=== PATIENT | male | born 1945 | race Caucasian/White ===

== ENCOUNTER 2019-08-01 11:06 | Inpatient (IN) | payer MEDICARE, BC ==
[2019-08-01] MEDS ORDERED: Sodium Chloride 0.9% 1000 ML 1,000 ML IV STA (12:39)
--- NOTE | 2019-08-01 12:44 | PCM.HP.ADD ---
Addendum to History & Physical - History & Physical Addendum Addendum to History & Physical: This certifies that the History & Physical in the electronic chart reflects the current health status of the patient. If there are changes in the H&P these changes/exceptions are listed as follows.
[2019-08-01 13:03] LABS: Hematocrit 36.8 % (42-50); Hemoglobin 12.1 gm/dl (12.5-18.0); Mean Cell Volume 90.2 fl (78-100); Mean Corpuscular Hgb Concent. 32.9 g/dl (32-36); Mean Platelet Volume 9.6 fl (6-9.5); Platelet Count 314 K/mm3 (150-450); Red Blood Count 4.08 M/mm3 (4.1-5.6); White Blood Count 21.6 K/mm3 (4.0-10.5)
[2019-08-01 13:05] LABS: Mean Corpuscular Hemoglobin 29.6 pg (26-32)
[2019-08-01 13:51] LABS: ANION GAP 19.8 MEQ/L (5-15); BILIRUBIN,TOTAL 0.6 mg/dL (0.2-1.3); Calcium 9.8 mg/dL (8.4-10.2); Creatinine 1 2.63 mg/dL (0.66-1.25); Potassium 3.6 mmol/L (3.5-5.1); Total Protein 7.1 g/dL (6.3-8.2)
[2019-08-01] MEDS: Sodium Chloride 0.9% 1000 ML 1,000 ML IV SCH (14:51)
[2019-08-01 15:01] LABS: BAND 2 % (0.0-2.0); Basophil 1 % (0.0-1.0); Eosinophil 3 % (0.00-3.0); Lymphocytes 11 % (24-44); Monocyte 5 % (0.0-12.0); Neutrophils 78 % (36.-66.); Platelet Estimate NORMAL (NORMAL); Total Cells Counted 100
--- NOTE | 2019-08-01 15:17 | XRAY ---
Indication: Acute mental status change. History of bladder carcinoma. Possible metastasis. Sagittal, coronal, and axial MRI brain was performed without contrast using T1, T2, FLAIR, diffusion, and ADC sequences. Comparison: None MRI was ordered with contrast but performed without contrast due to patient's poor renal function. GFR is 25.6. There is age-appropriate global atrophy. Moderate bilateral periventricular and brainstem T2 signal favors degenerative micro-ischemia. No acute intracranial hemorrhage, abnormal extra-axial fluid collection, or mass effect. Diffusion images are negative for restricted signal. Fourth ventricle is midline without hydrocephalus. 7/8 cranial nerve complex bilaterally symmetric. Normal flow void signal within the major intracerebral circulation. Normal appearing craniocervical junction and sella turcica. Minimal mucosal thickening of both ethmoid sinuses. Impression: 1. Normal aging brain including atrophy and cerebral/brainstem degenerative micro-ischemia. 2. No acute intracranial abnormalities or evidence for evolving large vessel territorial stroke. 3. Minimal paranasal sinus disease.
--- NOTE | 2019-08-01 15:26 | XRAY ---
Indication: Confusion. History of bladder carcinoma. Comparison: October 06, 2006. PA/lateral chest remains hyperinflated with lingula calcified granuloma. No focal infiltrate, consolidation, mass, or effusion. Heart and mediastinal structures within normal limits. Bony thorax intact again with mild osteopenia and degenerative changes. Impression: Stable nonacute hyperinflated chest with chronic features.
[2019-08-01] MEDS: Zithromax 500 MG/ 250 ML NaCl Premix 500 MG/250 ML IVPB IV SCH (16:35)
[2019-08-01] MEDS: Glucophage 500 MG PO SCH (16:38)
[2019-08-01] MEDS: ROCEPHIN 1 Gm-D5w 50 ml Bag** 1 G/50 ML IVPB IV SCH (18:36)
[2019-08-01 19:07] LABS: Appearance CLEAR (CLEAR); Bacteria FEW /HPF (NEGATIVE); Bilirubin NEGATIVE (NEGATIVE); Blood NEGATIVE Ery/ul (0-5); Glucose NEGATIVE (NEGATIVE); Hyaline Casts 0-2 /LPF (0-2); Ketones NEGATIVE (NEGATIVE); Leukocyte Esterase SMALL (NEGATIVE); Mucus SLIGHT /HPF (NEGATIVE); Nitrite NEGATIVE (NEGATIVE); Protein,Urine Dip 100 (Negative); Specific Gravity 1.015 (1.005-1.025); Urobilinogen 2 mg/dL (0-1); WBC 51-100 /HPF (0-5)
[2019-08-01] MEDS: Pepcid 20 MG PO SCH (22:00)
[2019-08-01] MEDS: NORCO 7.5/325 MG TAB PO SCH (22:00)
[2019-08-01] MEDS: REQUIP 2MG TAB PO SCH (22:00)
[2019-08-01] MEDS: COREG 12.5 MG PO SCH (22:01)
[2019-08-01] MEDS: ECOTRIN 81 MG PO SCH (22:01)
[2019-08-02] MEDS: Sodium Chloride 0.9% 1000 ML 1,000 ML IV SCH ×2 (05:44→15:44)
[2019-08-02] MEDS: Glucophage 500 MG PO SCH ×2 (07:57→17:34)
--- NOTE | 2019-08-02 09:15 | PCM.NOTE ---
Date and Time: 08/02/19912 Subjective Assessment: doing ok - Review of Systems Constitutional: No Fever, No Chills Eyes: No Symptoms Ears, Nose, & Throat: No Symptoms Respiratory: No Cough, No Short Of Breath Cardiac: No Chest Pain, No Edema, No Syncope Abdominal/Gastrointestinal: No Abdominal Pain, No Nausea, No Vomiting, No Diarrhea Genitourinary Symptoms: No Dysuria Musculoskeletal: No Back Pain, No Neck Pain Skin: No Rash Neurological: No Dizziness, No Focal Weakness, No Sensory Changes Psychological: No Symptoms Endocrine: No Symptoms Hematologic/Lymphatic: No Symptoms Immunological/Allergic: No Symptoms Objective Exam General Appearance: no apparent distress, alert Neurologic Exam: alert, oriented x 3, cooperative, normal mood/affect, nml cerebellar function, sensation nml, No motor deficits Skin Exam: normal color, warm, dry Eye Exam: PERRL, EOMI, eyes nml inspection Ears, Nose, Throat Exam: normal ENT inspection, pharynx normal, moist mucous membranes Neck Exam: normal inspection, non-tender, supple, full range of motion Respiratory Exam: normal breath sounds, lungs clear, No respiratory distress Cardiovascular Exam: regular rate/rhythm, normal heart sounds Gastrointestinal/Abdomen Exam: soft, No tenderness, No mass Extremity Exam: normal inspection, normal range of motion Back Exam: normal inspection, normal range of motion, No CVA tenderness, No vertebral tenderness Male Genitalia Exam: deferred Rectal Exam: deferred OBJECTIVE DATA Vital Signs: Vital Signs - 24 hr Temp Pulse Resp BP Pulse Ox 08/02/19 08:00 99.7 F 75 20 174/80 94 L 08/02/19 02:52 98.4 F 75 18 166/78 94 L 08/02/19 00:00 98.2 F 78 16 139/67 92 L 08/01/19 21:00 99.4 F 81 18 162/74 94 L 08/01/19 18:59 98 08/01/19 17:44 98.2 F 80 20 124/80 98 08/01/19 13:54 96 08/01/19 13:04 97.8 F 68 20 132/63 96 08/01/19 13:02 97.8 F 68 20 132/63 95 Pain Assessment - Last Documented Pain Intensity 0 Pain Scale Used FLACC Intake and Output: Intake & Output 07/30/19 07/31/19 08/01/1919 11:59 11:59 11:59 11:59 Intake Total 2703 Output Total 700 Balance 2002 Weight 73.1 kg Lab Results: Accuchecks Date 08/01/19 Date 08/01/19 Time 21:00 Time 16:30 Accucheck Value: 96 Accucheck Value: 177 Lab Results-Last 24 Hours 08/01/19 08/01/19 08/01/19 Range/Units 12:39 12:39 13:05 WBC 21.6 H (4.0-10.5) K/mm3 RBC 4.08 L (4.1-5.6) M/mm3 Hgb 12.1 L (12.5-18.0) gm/dl Hct 36.8 L (42-50) % MCV 90.2 (78-100) fl MCH 29.6 (26-32) pg MCHC 32.9 (32-36) g/dl RDW 15.0 H (11.5-14.0) % Plt Count 314 (150-450) K/mm3 MPV 9.6 H (6-9.5) fl Segmented Neutrophils 78 H (36.-66.) % Band Neutrophils 2 (0.0-2.0) % Lymphocytes (Manual) 11 L (24-44) % Monocytes (Manual) 5 (0.0-12.0) % Eosinophils (Manual) 3 (0.00-3.0) % Basophils (Manual) 1 (0.0-1.0) % Platelet Estimate NORMAL (NORMAL) RBC Morphology NORMAL Sodium 139 (137-145) mmol/L Potassium 3.6 (3.5-5.1) mmol/L Chloride 99 (98-107) mmol/L Carbon Dioxide 24 (22-30) mmol/L Anion Gap 19.8 H (5-15) MEQ/L BUN 39 H (9-20) mg/dL Creatinine 2.63 H (0.66-1.25) mg/dL Estimated GFR 25.6 ML/MIN Glucose 175 H (74-106) mg/dL Hemoglobin A1c 5.99 (4.5-6.0) % Calcium 9.8 (8.4-10.2) mg/dL Total Bilirubin 0.60 (0.2-1.3) mg/dL AST 19 (17-59) U/L ALT 17 (0-50) U/L Alkaline Phosphatase 45 (38-126) U/L NT-Pro-B Natriuret Pep 649 (0-900) pg/mL Serum Total Protein 7.1 (6.3-8.2) g/dL Albumin 4.0 (3.5-5.0) g/dL Urine Color (YELLOW) Urine Appearance (CLEAR) Urine pH (5-6) Ur Specific [place] (1.005-1.025) Urine Protein (Negative) Urine Ketones (NEGATIVE) Urine Blood (0-5) Jamin/ul Urine Nitrite (NEGATIVE) Urine Bilirubin (NEGATIVE) Urine Urobilinogen (0-1) mg/dL Ur Leukocyte Esterase (NEGATIVE) Urine WBC (Auto) (0-5) /HPF Urine RBC (Auto) (0-2) /HPF U Hyaline Cast (Auto) (0-2) /LPF U Epithel Cells (Auto) (FEW) /HPF Urine Bacteria (Auto) (NEGATIVE) /HPF Urine Mucus (Auto) (NEGATIVE) /HPF Urine Culture Reflexed (NO) Urine Glucose (NEGATIVE) mg/dL 08/01/19 Range/Units 18:40 WBC (4.0-10.5) K/mm3 RBC (4.1-5.6) M/mm3 Hgb (12.5-18.0) gm/dl Hct (42-50) % MCV (78-100) fl MCH (26-32) pg MCHC (32-36) g/dl RDW (11.5-14.0) % Plt Count (150-450) K/mm3 MPV (6-9.5) fl Segmented Neutrophils (36.-66.) % Band Neutrophils (0.0-2.0) % Lymphocytes (Manual) (24-44) % Monocytes (Manual) (0.0-12.0) % Eosinophils (Manual) (0.00-3.0) % Basophils (Manual) (0.0-1.0) % Platelet Estimate (NORMAL) RBC Morphology Sodium (137-145) mmol/L Potassium (3.5-5.1) mmol/L Chloride (98-107) mmol/L Carbon Dioxide (22-30) mmol/L Anion Gap (5-15) MEQ/L BUN (9-20) mg/dL Creatinine (0.66-1.25) mg/dL Estimated GFR ML/MIN Glucose (74-106) mg/dL Hemoglobin A1c (4.5-6.0) % Calcium (8.4-10.2) mg/dL Total Bilirubin (0.2-1.3) mg/dL AST (17-59) U/L ALT (0-50) U/L Alkaline Phosphatase (38-126) U/L NT-Pro-B Natriuret Pep (0-900) pg/mL Serum Total Protein (6.3-8.2) g/dL Albumin (3.5-5.0) g/dL Urine Color YELLOW (YELLOW) Urine Appearance CLEAR (CLEAR) Urine pH 6.0 (5-6) Ur Specific [place] 1.015 (1.005-1.025) Urine Protein 100 (Negative) Urine Ketones NEGATIVE (NEGATIVE) Urine Blood NEGATIVE (0-5) Jamin/ul Urine Nitrite NEGATIVE (NEGATIVE) Urine Bilirubin NEGATIVE (NEGATIVE) Urine Urobilinogen 2 (0-1) mg/dL Ur Leukocyte Esterase SMALL (NEGATIVE) Urine WBC (Auto) 51-100 (0-5) /HPF Urine RBC (Auto) NONE (0-2) /HPF U Hyaline Cast (Auto) 0-2 (0-2) /LPF U Epithel Cells (Auto) NONE (FEW) /HPF Urine Bacteria (Auto) FEW (NEGATIVE) /HPF Urine Mucus (Auto) SLIGHT (NEGATIVE) /HPF Urine Culture Reflexed ORDERED SEPARATELY (NO) Urine Glucose NEGATIVE (NEGATIVE) mg/dL Radiology Exams: Radiology Procedures Category Date Time Status CHEST 2 VIEWS (PA AND LAT) Stat Exams 08/01/19 14:30 Completed MRI BRAIN W/O CONTRAST [MRI] Routine Exams 08/01/19 12:39 Completed Multi-Disciplinary Progress Notes: Multi-Disciplinary Progress Notes 08/01/19 15:14 Pharmacy Note by [employer],PHARM Patient is currently taking metformin 1000 mg BID. Lexicomp suggest that in patients with CrCl less than 30 to be discontinued from this medication. Patients current CrCl is 26 mL/min. Miguel Miller Nipping Machine Operator Initialized on 08/01/19 15:14 - END OF NOTE Assessment/Plan (1) Pyelonephritis Current Visit: Yes Status: Acute Assessment & Plan: Last Vital Signs Temp 99.7 F 08/02/19 08:00 Pulse 75 08/02/19 08:00 Resp 20 08/02/19 08:00 BP 174/80 08/02/19 08:00 Pulse Ox 94 L 08/02/19 08:00 Allergies No Known Drug Allergies Allergy (Unverified 08/01/19 13:27) Active Medications Hydrocodone Bitart/Acetaminophen ([place] 7.5/325 Mg Tab) 1 tab PO BID FLAVIO Stop: 08/06/19 21:59 Last Admin: 08/01/19 22:00 Dose: 1 tab Amlodipine Besylate (Norvasc 5 Mg) 10 mg PO DAILY FLAVIO Stop: 09/01/19 09:59 Aspirin (Ecotrin 81 Mg) 81 mg PO BID FLAVIO Stop: 08/31/19 21:59 Last Admin: 08/01/19 22:01 Dose: 81 mg Bupropion HCl (Wellbutrin Xl 150 Mg) 300 mg PO DAILY FLAVIO Stop: 09/01/19 09:59 Carvedilol (Coreg 12.5 Mg) 25 mg PO BID FLAVIO Stop: 08/31/19 21:59 Last Admin: 08/01/19 22:01 Dose: 25 mg Cholecalciferol (Vitamin D) 1,000 unit PO DAILY FLAVIO Stop: 09/01/19 09:59 Clopidogrel Bisulfate (Plavix 75 Mg Tablet) 75 mg PO DAILY FLAVIO Stop: 09/01/19 09:59 Famotidine (Pepcid 20 Mg) 20 mg PO BID FLAVIO Stop: 08/31/19 21:59 Last Admin: 08/01/19 22:00 Dose: 20 mg Fluoxetine HCl (Prozac 20 Mg) 20 mg PO DAILY FLAVIO Stop: 09/01/19 09:59 Sodium Chloride (Sodium Chloride 0.9% 1000 Ml) 1,000 mls @ 100 mls/hr IV .Q10H FLAVIO Stop: 08/31/19 12:44 Last Admin: 08/02/19 05:44 Dose: 100 mls/hr Ceftriaxone Sodium/Dextrose (Rocephin 1 Gm-D5w 50 Ml Bag) 1 g in 50 mls @ 100 mls/hr IV Q24H FLAVIO Stop: 08/31/19 17:59 Last Admin: 08/01/19 18:36 Dose: 100 mls/hr Azithromycin (Zithromax 500 Mg/ 250 Ml Nacl Premix) 500 mg in 250 mls @ 250 mls /hr IV Q24H FLAVIO Stop: 08/31/19 16:29 Last Admin: 08/01/19 16:35 Dose: 250 mls/hr Losartan Potassium (Cozaar 50 Mg) 50 mg PO DAILY FLAVIO Stop: 09/01/19 09:59 Metformin HCl (Glucophage 500 Mg) 1,000 mg PO BIDWM FLAVIO Stop: 08/31/19 16:59 Last Admin: 08/02/19 07:57 Dose: 1,000 mg Chlorthalidone 25mg (Tablet) 1 each PO DAILY FLAVIO Stop: 09/01/19 09:59 Ropinirole HCl (Requip 2mg Tab) 2 mg PO HS FLAVIO Stop: 08/31/19 21:59 Last Admin: 08/01/19 22:00 Dose: 2 mg Simvastatin (Zocor 20mg) 80 mg PO DAILY FLAVIO Stop: 09/01/19 09:59 Sitagliptin Phosphate (Januvia 50 Mg) 50 mg PO DAILY FLAVIO Stop: 09/01/19 09:59 Intake & Output 08/01/19 08/02/19 11:59 11:59 Intake Total 2703 Output Total 700 Balance 2002 Weight 73.1 kg Orders 08/01/19 12:[address] in Observation ROUTINE Oxygen Nasal Cannula 2 lpm 08/01/19 12:40 Up Ad Leonila TOLERATED 08/01/19 12:45 NaCl 0.9% 1000 ml [Sodium Chloride 0.9% 1000 ML] 1,000 ml IV 100 mls/hr 08/01/19 13:00 BLOOD CULTURE Stat 08/01/19 13:03 Pulse Oximetry .spot check 08/01/19 13:36 Cover Mat Machine Operator/Discharge Plan Nutritional Admission Screen 08/01/19 16:30 Azithromycin 500 mg/250 ml [Zithromax 500 MG/ 250 ML NaCl Premix] 500 mg in 250 ml IV Q24H 08/01/19 17:00 Metformin HCl 500 mg [Glucophage 500 MG] 1,000 mg PO BIDWM 08/01/19 18:00 Ceftriaxone 1 GM/50 ML PREMIX* [ROCEPHIN 1 Gm-D5w 50 ml Bag] 1 g in 50 ml IV Q24H 08/01/19 18:40 CULTURE,URINE Stat 08/01/19 22:00 Aspirin EC 81 mg [Ecotrin 81 mg] 81 mg PO BID Carvedilol 12.5 mg [Coreg 12.5 mg] 25 mg PO BID Famotidine 20 mg [Pepcid 20 MG] 20 mg PO BID Hydrocodone /APAP 7.5/325 mg [[place] 7.5/325 mg Tab] 1 tab PO BID Ropinirole 2Mg [Requip 2Mg Tab] 2 mg PO HS 08/01/19 Dinner 1800 Calorie ADA 08/02/19 10:00 Amlodipine Besylate 5 mg [Norvasc 5 mg] 10 mg PO DAILY Bupropion HCl Xl 150 mg [Wellbutrin XL 150 MG] 300 mg PO DAILY Cholecalciferol (Vitamin D3) [Vitamin D] 1,000 unit PO DAILY Clopidogrel Bisulfate 75 mg [PLAVIX 75 MG Tablet] 75 mg PO DAILY Fluoxetine HCl 20 mg [Prozac 20 MG] 20 mg PO DAILY Losartan Potassium 50 mg [Cozaar 50 MG] 50 mg PO DAILY Non-Formulary Drug [Non-Formulary Item] 1 each PO DAILY Simvastatin 20Mg [Zocor 20Mg] 80 mg PO DAILY Sitagliptin Phosphate 50 MG [Januvia 50 MG] 50 mg PO DAILY Lab Tests 08/01/19 08/01/19 08/01/19 12:39 12:39 13:05 WBC 21.6 H RBC 4.08 L Hgb 12.1 L Hct 36.8 L MCV 90.2 MCH 29.6 MCHC 32.9 RDW 15.0 H Plt Count 314 MPV 9.6 H Segmented Neutrophils 78 H Band Neutrophils 2 Lymphocytes (Manual) 11 L Monocytes (Manual) 5 Eosinophils (Manual) 3 Basophils (Manual) 1 Platelet Estimate NORMAL RBC Morphology NORMAL Sodium 139 Potassium 3.6 Chloride 99 Carbon Dioxide 24 Anion Gap 19.8 H BUN 39 H Creatinine 2.63 H Estimated GFR 25.6 Glucose 175 H Hemoglobin A1c 5.99 Calcium 9.8 Total Bilirubin 0.60 AST 19 ALT 17 Alkaline Phosphatase 45 NT-Pro-B Natriuret Pep 649 Serum Total Protein 7.1 Albumin 4.0 Urine Color Urine Appearance Urine pH Ur Specific [place] Urine Protein Urine Ketones Urine Blood Urine Nitrite Urine Bilirubin Urine Urobilinogen Ur Leukocyte Esterase Urine WBC (Auto) Urine RBC (Auto) U Hyaline Cast (Auto) U Epithel Cells (Auto) Urine Bacteria (Auto) Urine Mucus (Auto) Urine Culture Reflexed Urine Glucose 08/01/19 18:40 WBC RBC Hgb Hct MCV MCH MCHC RDW Plt Count MPV Segmented Neutrophils Band Neutrophils Lymphocytes (Manual) Monocytes (Manual) Eosinophils (Manual) Basophils (Manual) Platelet Estimate RBC Morphology Sodium Potassium Chloride Carbon Dioxide Anion Gap BUN Creatinine Estimated GFR Glucose Hemoglobin A1c Calcium Total Bilirubin AST ALT Alkaline Phosphatase NT-Pro-B Natriuret Pep Serum Total Protein Albumin Urine Color YELLOW Urine Appearance CLEAR Urine pH 6.0 Ur Specific [place] 1.015 Urine Protein 100 Urine Ketones NEGATIVE Urine Blood NEGATIVE Urine Nitrite NEGATIVE Urine Bilirubin NEGATIVE Urine Urobilinogen 2 Ur Leukocyte Esterase SMALL Urine WBC (Auto) 51-100 Urine RBC (Auto) NONE U Hyaline Cast (Auto) 0-2 U Epithel Cells (Auto) NONE Urine Bacteria (Auto) FEW Urine Mucus (Auto) SLIGHT Urine Culture Reflexed ORDERED SEPARATELY Urine Glucose NEGATIVE Microbiology 08/01/19 18:40 Clean Catch Midstream Urine Culture - Preliminary NO GROWTH TO DATE Code(s): N12 - TUBULO-INTERSTITIAL NEPHRITIS, NOT SPCF ACUTE OR CHRONIC (2) Bladder cancer Current Visit: Yes Status: Acute
[2019-08-02] MEDS: PLAVIX 75 MG Tablet PO SCH (09:58)
[2019-08-02] MEDS: ZOCOR 20MG PO SCH (09:58)
[2019-08-02] MEDS: NORVASC 5 MG PO SCH (09:59)
[2019-08-02] MEDS: Pepcid 20 MG PO SCH ×2 (09:59→21:28)
[2019-08-02] MEDS: NORCO 7.5/325 MG TAB PO SCH ×2 (09:59→21:28)
[2019-08-02] MEDS: ECOTRIN 81 MG PO SCH ×2 (09:59→21:28)
[2019-08-02] MEDS: COREG 12.5 MG PO SCH ×2 (09:59→21:28)
[2019-08-02] MEDS: Prozac 20 MG PO SCH (10:00)
[2019-08-02] MEDS ORDERED: NON-FORMULARY ITEM (Alogliptin Benzoate [Alogliptin] 12.5 MG) PO SCH (10:00)
[2019-08-02] MEDS ORDERED: NON-FORMULARY ITEM (Losartan Potassium [Cozaar] 50 MG) PO SCH (10:00)
[2019-08-02] MEDS ORDERED: BUPROPION HCL 300 MG PO SCH (10:00)
[2019-08-02] MEDS ORDERED: NON-FORMULARY ITEM (Chlorthalidone [Chlorthalidone] 25 MG) PO SCH (10:00)
[2019-08-02] MEDS: Januvia 50 MG PO SCH (10:00)
[2019-08-02] MEDS ORDERED: NON-FORMULARY ITEM (Atorvastatin Calcium [Atorvastatin Calcium] 80 MG) PO SCH (10:00)
[2019-08-02] MEDS: Cozaar 50 MG PO SCH (10:00)
[2019-08-02] MEDS: NON-FORMULARY ITEM PO SCH (10:00)
[2019-08-02] MEDS: VITAMIN D PO SCH (10:00)
[2019-08-02] MEDS: Wellbutrin XL 150 MG PO SCH (10:01)
--- NOTE | 2019-08-02 10:17 | XRAY ---
Indication: Weakness and dizziness. History of bladder cancer. Multiple contiguous axial images obtained through the abdomen and pelvis without contrast as ordered. Comparison: None Lung bases demonstrates bibasilar atelectasis/scarring. No infiltrate or effusion. Heart is not enlarged. Stomach is distended with food/fluid. Noncontrasted stomach and bowel loops appear nonobstructed. Normal appendix. Mild diffuse scattered colonic fecal debris throughout. Scattered descending and sigmoid diverticulosis. No free fluid/air. Left kidney is atrophic with a few renal cysts, largest 2.5 cm. Calcified splenic granulomas, hysterectomy, and cholecystectomy. Remaining liver, pancreas, spleen, adrenal glands, kidneys, ureters, and bladder appear unremarkable for noncontrast exam. Enlarged prostate gland impresses on the base of the bladder. Mild scattered aortoiliac calcifications without AAA. Osseous structures demonstrates mild/moderate degenerative changes throughout the spine. There is anterior ventral hernia mesh graft at the level of the pelvis. Small fatty bilateral inguinal hernias. Impression: 1. Mild diffuse fecal stasis without obstruction. Colonic diverticulosis without diverticulitis. 2. Atrophic left kidney with cysts, enlarged prostate gland, and small bilateral fatty inguinal hernias. 3. Remaining CT abdomen/pelvis without contrast exam is negative. CT DI 19.30
[2019-08-02 11:12] LABS: Hematocrit 39.7 % (42-50); Hemoglobin 12.8 gm/dl (12.5-18.0); Mean Cell Volume 91.1 fl (78-100); Mean Corpuscular Hemoglobin 29.4 pg (26-32); Mean Corpuscular Hgb Concent. 32.2 g/dl (32-36); Mean Platelet Volume 9.9 fl (6-9.5); Platelet Count 336 K/mm3 (150-450); Red Blood Count 4.36 M/mm3 (4.1-5.6); White Blood Count 18.1 K/mm3 (4.0-10.5)
[2019-08-02 13:10] LABS: ALBUMIN 4.1 g/dL (3.5-5.0); ANION GAP 21.4 MEQ/L (5-15); BILIRUBIN,TOTAL 0.6 mg/dL (0.2-1.3); Calcium 9.7 mg/dL (8.4-10.2); Creatinine 1 2.39 mg/dL (0.66-1.25); Potassium 3.8 mmol/L (3.5-5.1); Total Protein 7.7 g/dL (6.3-8.2)
[2019-08-02 14:46] LABS: BAND 3 % (0.0-2.0); Eosinophil 9 % (0.00-3.0); Lymphocytes 4 % (24-44); Monocyte 5 % (0.0-12.0); Neutrophils 79 % (36.-66.); Total Cells Counted 100
[2019-08-02 14:47] LABS: ANISOCYTOSIS 1+; Platelet Estimate NORMAL (NORMAL); Toxic Granulation 1+
[2019-08-02] MEDS: Zithromax 500 MG/ 250 ML NaCl Premix 500 MG/250 ML IVPB IV SCH (15:44)
[2019-08-02] MEDS: ROCEPHIN 1 Gm-D5w 50 ml Bag** 1 G/50 ML IVPB IV SCH (17:34)
[2019-08-02] MEDS: REQUIP 2MG TAB PO SCH (21:28)
[2019-08-03] MEDS: Sodium Chloride 0.9% 1000 ML 1,000 ML IV SCH ×2 (03:31→13:49)
[2019-08-03 09:25] LABS: Absolute Neutrophil Ct (ANC) 12.04 (1.4-6.9); BASOPHIL % 0.4 % (0.0-0.4); Basophil (Absolute #) 0.06 (0-0.4); Eosinophil % 13.4 % (0.00-5.0); Eosinophil (Absolute #) 2.28 (0-0.5); Hematocrit 37.9 % (42-50); Hemoglobin 12.2 gm/dl (12.5-18.0); Lymphocyte (Absolute #) 1.41 (1.0-4.6); Lymphocytes % 8.3 % (24.0-44.0); Mean Cell Volume 90.5 fl (78-100); Mean Corpuscular Hemoglobin 29.1 pg (26-32); Mean Corpuscular Hgb Concent. 32.2 g/dl (32-36); Mean Platelet Volume 9.2 fl (6-9.5); Monocyte (Absolute #) 1.23 (0.0-1.3); Monocytes % 7.2 % (0.0-12.0); Neutrophil % 70.7 % (36.0-66.0); Platelet Count 336 K/mm3 (150-450); Red Blood Count 4.19 M/mm3 (4.1-5.6); Red Cell Distribution Width 14.8 % (11.5-14.0)
[2019-08-03] MEDS: ZOCOR 20MG PO SCH (09:29)
[2019-08-03] MEDS: COREG 12.5 MG PO SCH ×2 (09:31→21:43)
[2019-08-03] MEDS: Cozaar 50 MG PO SCH (09:32)
[2019-08-03] MEDS: PLAVIX 75 MG Tablet PO SCH (09:32)
[2019-08-03] MEDS: Januvia 50 MG PO SCH (09:32)
[2019-08-03] MEDS: Pepcid 20 MG PO SCH ×2 (09:32→21:42)
[2019-08-03] MEDS: VITAMIN D PO SCH (09:33)
[2019-08-03] MEDS: Prozac 20 MG PO SCH (09:33)
[2019-08-03] MEDS: NON-FORMULARY ITEM PO SCH (09:34)
[2019-08-03] MEDS: ECOTRIN 81 MG PO SCH ×2 (09:34→21:42)
[2019-08-03] MEDS: Wellbutrin XL 150 MG PO SCH (09:34)
[2019-08-03] MEDS: NORCO 7.5/325 MG TAB PO SCH ×2 (09:35→21:42)
[2019-08-03] MEDS: NORVASC 5 MG PO SCH (09:35)
[2019-08-03 09:57] LABS: ALBUMIN 3.7 g/dL (3.5-5.0); ANION GAP 16.6 MEQ/L (5-15); BILIRUBIN,TOTAL 0.4 mg/dL (0.2-1.3); Calcium 9.5 mg/dL (8.4-10.2); Creatinine 1 2.08 mg/dL (0.66-1.25); Potassium 3.7 mmol/L (3.5-5.1)
[2019-08-03 11:48] LABS: Slide Review 1 YES
--- NOTE | 2019-08-03 13:26 | PCM.NOTE ---
Date and Time: 08/03/19 1325 Subjective Assessment: doing ok - Review of Systems Constitutional: No Fever, No Chills Eyes: No Symptoms Ears, Nose, & Throat: No Symptoms Respiratory: No Cough, No Short Of Breath Cardiac: No Chest Pain, No Edema, No Syncope Abdominal/Gastrointestinal: No Abdominal Pain, No Nausea, No Vomiting, No Diarrhea Genitourinary Symptoms: No Dysuria Musculoskeletal: No Back Pain, No Neck Pain Skin: No Rash Neurological: No Dizziness, No Focal Weakness, No Sensory Changes Psychological: No Symptoms Endocrine: No Symptoms Hematologic/Lymphatic: No Symptoms Immunological/Allergic: No Symptoms Objective Exam General Appearance: no apparent distress, alert Neurologic Exam: alert, oriented x 3, cooperative, normal mood/affect, nml cerebellar function, sensation nml, No motor deficits Skin Exam: normal color, warm, dry Eye Exam: PERRL, EOMI, eyes nml inspection Ears, Nose, Throat Exam: normal ENT inspection, pharynx normal, moist mucous membranes Neck Exam: normal inspection, non-tender, supple, full range of motion Respiratory Exam: normal breath sounds, lungs clear, No respiratory distress Cardiovascular Exam: regular rate/rhythm, normal heart sounds Gastrointestinal/Abdomen Exam: soft, No tenderness, No mass Extremity Exam: normal inspection, normal range of motion Back Exam: normal inspection, normal range of motion, No CVA tenderness, No vertebral tenderness Male Genitalia Exam: deferred Rectal Exam: deferred OBJECTIVE DATA Vital Signs: Vital Signs - 24 hr Temp Pulse Resp BP Pulse Ox 08/03/19 07:27 98.5 F 74 18 93 L 08/03/19 03:38 98.2 F 66 16 177/78 93 L 08/03/19 00:00 98.0 F 72 20 147/67 94 L 08/02/19 20:00 98.1 F 70 19 163/74 97 08/02/19 16:00 98.1 F 73 20 110/69 94 L Pain Assessment - Last Documented Pain Intensity 0 Pain Scale Used 0-10 Pain Scale,FLACC Intake and Output: Intake & Output 08/01/19 08/02/19 08/03/19 08/04/19 11:59 11:59 11:59 11:59 Intake Total 3183 4355 240 Output Total 1000 Balance 2183 4355 240 Weight 73.1 kg Lab Results: Accuchecks Date 08/02/19 Time 22:00 Accucheck Value: 173 Accucheck Value: 93 Accucheck Value: 96 Accucheck Value: 81 Lab Results-Last 24 Hours 08/02/19 08/03/19 08/03/19 Range/Units 10:46 09:10 09:10 WBC 17.0 H (4.0-10.5) K/mm3 RBC 4.19 (4.1-5.6) M/mm3 Hgb 12.2 L (12.5-18.0) gm/dl Hct 37.9 L (42-50) % MCV 90.5 (78-100) fl MCH 29.1 (26-32) pg MCHC 32.2 (32-36) g/dl RDW 14.8 H (11.5-14.0) % Plt Count 336 (150-450) K/mm3 MPV 9.2 (6-9.5) fl Gran % 70.7 H (36.0-66.0) % Eos # (Auto) 2.28 H (0-0.5) Absolute Lymphs (auto) 1.41 (1.0-4.6) Absolute Monos (auto) 1.23 (0.0-1.3) Lymphocytes % 8.3 L (24.0-44.0) % Monocytes % 7.2 (0.0-12.0) % Eosinophils % 13.4 H (0.00-5.0) % Basophils % 0.4 (0.0-0.4) % Absolute Granulocytes 12.04 H (1.4-6.9) Segmented Neutrophils 79 H (36.-66.) % Band Neutrophils 3 H (0.0-2.0) % Lymphocytes (Manual) 4 L (24-44) % Monocytes (Manual) 5 (0.0-12.0) % Eosinophils (Manual) 9 H (0.00-3.0) % Basophils # 0.06 (0-0.4) Toxic Granulation 1+ Platelet Estimate NORMAL (NORMAL) RBC Morphology ABNORMAL Anisocytosis 1+ Sodium 141 (137-145) mmol/L Potassium 3.7 (3.5-5.1) mmol/L Chloride 99 (98-107) mmol/L Carbon Dioxide 29 (22-30) mmol/L Anion Gap 16.6 H (5-15) MEQ/L BUN 28 H (9-20) mg/dL Creatinine 2.08 H (0.66-1.25) mg/dL Estimated GFR 33.5 ML/MIN Glucose 152 H (74-106) mg/dL Calcium 9.5 (8.4-10.2) mg/dL Total Bilirubin 0.40 (0.2-1.3) mg/dL AST 17 (17-59) U/L ALT 13 (0-50) U/L Alkaline Phosphatase 43 (38-126) U/L Serum Total Protein 7.0 (6.3-8.2) g/dL Albumin 3.7 (3.5-5.0) g/dL Slides for Path Review YES Radiology Exams: Radiology Procedures Category Date Time Status ABDOMEN AND PELVIS W/0 CONTRAS [CT] Urgent Exams 08/02/19 09:14 Completed CHEST 2 VIEWS (PA AND LAT) Stat Exams 08/01/19 14:30 Completed MRI BRAIN W/O CONTRAST [MRI] Routine Exams 08/01/19 12:39 Completed Assessment/Plan (1) Pyelonephritis Current Visit: Yes Status: Acute Assessment & Plan: Chief Complaint Diagnosis ACUTE PYELONEPHRITIS Allergies Allergy/AdvReac Type Severity Reaction Status Date / Time No Known Drug Allergies Allergy Unverified 08/01/19 13:27 Vital Signs (Last 24 hours) Temp Pulse Resp BP Pulse Ox 08/03/19 07:27 98.5 F 74 18 93 L 08/03/19 03:38 98.2 F 66 16 177/78 93 L 08/03/19 00:00 98.0 F 72 20 147/67 94 L 08/02/19 20:00 98.1 F 70 19 163/74 97 08/02/19 16:00 98.1 F 73 20 110/69 94 L Home Medications Medication Instructions Recorded Confirmed Last Taken Type Alogliptin Benzoate [Alogliptin] 12.5 mg PO DAILY 08/01/19 08/01/19 08/01/19 History 12.5 mg Amlodipine Besylate [Norvasc] 10 mg PO DAILY 08/01/19 08/01/19 08/01/19 History 10 mg Aspirin EC 81 mg [Ecotrin 81 81 mg PO BID 08/01/19 08/01/19 08/01/19 History mg] 81 mg Atorvastatin Calcium 80 mg PO DAILY 08/01/19 08/01/19 08/01/19 History 80 mg Bupropion HCl [Bupropion HCl ER] 300 mg PO DAILY 08/01/19 08/01/19 08/01/19 History 300 mg Carvedilol 12.5 mg [Coreg 12.5 25 mg PO BID 08/01/19 08/01/19 08/01/19 History mg] Chlorthalidone 25 mg PO DAILY 08/01/19 08/01/19 08/01/19 History Cholecalciferol (Vitamin D3) 1,000 unit PO DAILY 08/01/19 08/01/19 08/01/19 08: 00 History [Vitamin D3] 1 tab Clopidogrel Bisulfate 75 mg 75 mg PO DAILY 08/01/19 08/01/19 08/01/19 History [PLAVIX 75 MG Tablet] 75 mg Famotidine 20 mg [Pepcid 20 20 mg PO BID 08/01/19 08/01/19 08/01/19 History MG] 20 mg Fluoxetine HCl 20 mg [Prozac 20 20 mg PO DAILY 08/01/19 08/01/19 08/01/19 History MG] 1 cap Hydrocodone/Acetaminophen [[place] 1 each PO BID 08/01/19 08/01/19 08/01/19 History 7.5-325 Tablet] 1 tab Losartan Potassium [Cozaar] 50 mg PO DAILY 08/01/19 08/01/19 08/01/19 History 50 MG Metformin HCl 500 mg 1,000 mg PO BIDWM 08/01/19 08/01/19 08/01/19 History [Glucophage 500 MG] Ropinirole 2Mg [Requip 2Mg 2 mg PO HS 08/01/19 08/01/19 1 Day Ago History Tab] ~07/31/19 2 mg Current Medications Generic Name Dose Route Start Last Admin Trade Name Freq PRN Reason Stop Dose Admin Hydrocodone Bitart/Acetaminophen 1 tab 08/01/19 22:00 08/03/19 09:35 [place] 7.5/325 Mg Tab PO 08/06/19 21:59 1 tab BID FLAVIO Administration Amlodipine Besylate 10 mg 08/02/19 10:00 08/03/19 09:35 Norvasc 5 Mg PO 09/01/19 09:59 10 mg DAILY FLAVIO Administration Aspirin 81 mg 08/01/19 22:00 08/03/19 09:34 Ecotrin 81 Mg PO 08/31/19 21:59 81 mg BID FLAVIO Administration Bupropion HCl 300 mg 08/02/19 10:00 08/03/19 09:34 Wellbutrin Xl 150 Mg PO 09/01/19 09:59 300 mg DAILY FLAVIO Administration Carvedilol 25 mg 08/01/19 22:00 08/03/19 09:31 Coreg 12.5 Mg PO 08/31/19 21:59 25 mg BID FLAVIO Administration Cholecalciferol 1,000 unit 08/02/19 10:00 08/03/19 09:33 Vitamin D PO 09/01/19 09:59 1,000 unit DAILY FLAVIO Administration Clopidogrel Bisulfate 75 mg 08/02/19 10:00 08/03/19 09:32 Plavix 75 Mg Tablet PO 09/01/19 09:59 75 mg DAILY FLAVIO Administration Famotidine 20 mg 08/01/19 22:00 08/03/19 09:32 Pepcid 20 Mg PO 08/31/19 21:59 20 mg BID FLAVIO Administration Fluoxetine HCl 20 mg 08/02/19 10:00 08/03/19 09:33 Prozac 20 Mg PO 09/01/19 09:59 20 mg DAILY FLAVIO Administration Sodium Chloride 1,000 mls @ 100 mls/hr 08/01/19 12:45 08/03/19 03:31 Sodium Chloride 0.9% 1000 Ml IV 08/31/19 12:44 100 mls/hr .Q10H FLAVIO Administration Ceftriaxone Sodium/Dextrose 1 g in 50 mls @ 100 mls/hr 08/01/19 18:00 17:34 Rocephin 1 Gm-D5w 50 Ml Bag IV 08/31/19 17:59 100 mls/hr Q24H FLAVIO Administration Azithromycin 500 mg in 250 mls @ 250 mls/hr 08/01/19 16:30 08/02/19 15:44 Zithromax 500 Mg/ 250 Ml Nacl Premix IV 08/31/19 16:29 250 mls/hr Q24H FLAVIO Administration Losartan Potassium 50 mg 08/02/19 10:00 08/03/19 09:32 Cozaar 50 Mg PO 09/01/19 09:59 50 mg DAILY FLAVIO Administration Chlorthalidone 25mg 1 each 08/02/19 10:00 08/03/19 09:34 Tablet PO 09/01/19 09:59 1 each DAILY FLAVIO Administration Ropinirole HCl 2 mg 08/01/19 22:00 08/02/19 21:28 Requip 2mg Tab PO 08/31/19 21:59 2 mg HS FLAVIO Administration Simvastatin 80 mg 08/02/19 10:00 08/03/19 09:29 Zocor 20mg PO 09/01/19 09:59 80 mg DAILY FLAVIO Administration Sitagliptin Phosphate 50 mg 08/02/19 10:00 08/03/19 09:32 Januvia 50 Mg PO 09/01/19 09:59 50 mg DAILY FLAVIO Administration Discontinued Medications Generic Name Dose Route Start Last Admin Trade Name Freq PRN Reason Stop Dose Admin Sodium Chloride 1,000 mls @ 999 mls/hr 08/01/19 12:39 08/01/19 14:51 Sodium Chloride 0.9% 1000 Ml IV 08/01/19 13:39 999 mls/hr .Q1H1M STA Administration Metformin HCl 1,000 mg 08/01/19 17:00 08/02/19 17:34 Glucophage 500 Mg PO 08/31/19 16:59 1,000 mg BIDWM FLAVIO Administration Non-Formulary Medication 25 mg 08/02/19 10:00 Chlorthalidone [Chlorthalidone] PO 09/01/19 09:59 DAILY FLAVIO Intake & Output (Last 24 hours) 08/01/19 08/02/19 08/03/19 08/04/19 11:59 11:59 11:59 11:59 Intake Total 3183 4355 240 Output Total 1000 Balance 2183 4355 240 Weight 73.1 kg Microbiology Results (Last 24 hours) 08/01/19 18:40 Clean Catch Midstream Urine Culture - Final MIXED SERAFIN; 3 OR MORE TYPES. NO PREDOMINANT ORGANISM. NO FURTHER WORKUP. PLEASE RESUBMIT IF CLINICALLY INDICATED. 08/01/19 13:00 Blood Blood Culture Gram Stain - Pending 08/01/19 13:00 Blood Blood Culture - Preliminary NO GROWTH TO DATE 08/01/19 12:50 Blood Blood Culture Gram Stain - Pending 08/01/19 12:50 Blood Blood Culture - Preliminary NO GROWTH TO DATE Laboratory Results (Last 24 hours) 08/03/19 08/03/19 08/02/19 09:10 09:10 10:46 WBC 17.0 H RBC 4.19 Hgb 12.2 L Hct 37.9 L MCV 90.5 MCH 29.1 MCHC 32.2 RDW 14.8 H Plt Count 336 MPV 9.2 Gran % 70.7 H Eos # (Auto) 2.28 H Absolute Lymphs (auto) 1.41 Absolute Monos (auto) 1.23 Lymphocytes % 8.3 L Monocytes % 7.2 Eosinophils % 13.4 H Basophils % 0.4 Absolute Granulocytes 12.04 H Segmented Neutrophils 79 H Band Neutrophils 3 H Lymphocytes (Manual) 4 L Monocytes (Manual) 5 Eosinophils (Manual) 9 H Basophils # 0.06 Toxic Granulation 1+ Platelet Estimate NORMAL RBC Morphology ABNORMAL Anisocytosis 1+ Sodium 141 Potassium 3.7 Chloride 99 Carbon Dioxide 29 Anion Gap 16.6 H BUN 28 H Creatinine 2.08 H Estimated GFR 33.5 Glucose 152 H Calcium 9.5 Total Bilirubin 0.40 AST 17 ALT 13 Alkaline Phosphatase 43 Serum Total Protein 7.0 Albumin 3.7 Slides for Path Review YES Orders (Last 24 hours) Category Date Time Status Admission Status Change [Change to Full Admit] ROUTINE Care 08/02/19 12:30 Active CBC W DIFF Urgent Lab 08/03/19 09:10 Completed CMP Urgent Lab 08/03/19 09:10 Completed Patient Care Notes (Last 24 hours) 08/02/19 20:12 Nursing Note by Moriah Marquez notified about pharmacy note about CrCL and dosage of metformin. Orders received to hold medication at this time. Initialized on 08/02/19 20:12 - END OF NOTE Code(s): N12 - TUBULO-INTERSTITIAL NEPHRITIS, NOT SPCF ACUTE OR CHRONIC (2) Bladder cancer Current Visit: Yes Status: Acute
[2019-08-03] MEDS: Zithromax 500 MG/ 250 ML NaCl Premix 500 MG/250 ML IVPB IV SCH (17:18)
[2019-08-03] MEDS: ROCEPHIN 1 Gm-D5w 50 ml Bag** 1 G/50 ML IVPB IV SCH (18:29)
[2019-08-03] MEDS: REQUIP 2MG TAB PO SCH (21:43)
[2019-08-04] MEDS: Sodium Chloride 0.9% 1000 ML 1,000 ML IV SCH (01:18)
[2019-08-04 05:25] LABS: Absolute Neutrophil Ct (ANC) 8.14 (1.4-6.9); BASOPHIL % 0.4 % (0.0-0.4); Basophil (Absolute #) 0.06 (0-0.4); Eosinophil % 20.9 % (0.00-5.0); Hematocrit 36.4 % (42-50); Hemoglobin 11.8 gm/dl (12.5-18.0); Lymphocyte (Absolute #) 1.73 (1.0-4.6); Mean Cell Volume 89.9 fl (78-100); Mean Corpuscular Hemoglobin 29.1 pg (26-32); Mean Corpuscular Hgb Concent. 32.4 g/dl (32-36); Mean Platelet Volume 9.5 fl (6-9.5); Monocyte (Absolute #) 1.45 (0.0-1.3); Monocytes % 10.1 % (0.0-12.0); Neutrophil % 56.6 % (36.0-66.0); Platelet Count 359 K/mm3 (150-450); Red Blood Count 4.05 M/mm3 (4.1-5.6); Red Cell Distribution Width 14.7 % (11.5-14.0); White Blood Count 14.4 K/mm3 (4.0-10.5)
[2019-08-04 05:37] LABS: ALBUMIN 3.5 g/dL (3.5-5.0); ANION GAP 13.2 MEQ/L (5-15); BILIRUBIN,TOTAL 0.2 mg/dL (0.2-1.3); Calcium 9.4 mg/dL (8.4-10.2); Creatinine 1 1.89 mg/dL (0.66-1.25); Potassium 3.4 mmol/L (3.5-5.1); Total Protein 6.7 g/dL (6.3-8.2)
[2019-08-04 06:41] VITALS: O2SAT 98
[2019-08-04] MEDS: ZOCOR 20MG PO SCH (07:49)
[2019-08-04] MEDS: ECOTRIN 81 MG PO SCH (07:50)
[2019-08-04] MEDS: PLAVIX 75 MG Tablet PO SCH (07:50)
[2019-08-04] MEDS: Prozac 20 MG PO SCH (07:50)
[2019-08-04] MEDS: Pepcid 20 MG PO SCH (07:51)
[2019-08-04] MEDS: Januvia 50 MG PO SCH (07:51)
[2019-08-04] MEDS: VITAMIN D PO SCH (07:51)
[2019-08-04] MEDS: NORCO 7.5/325 MG TAB PO SCH (07:52)
[2019-08-04] MEDS: COREG 12.5 MG PO SCH (07:52)
[2019-08-04] MEDS: Cozaar 50 MG PO SCH (07:53)
[2019-08-04] MEDS: NORVASC 5 MG PO SCH (07:53)
[2019-08-04] MEDS: NON-FORMULARY ITEM PO SCH (07:55)
[2019-08-04] MEDS: Wellbutrin XL 150 MG PO SCH (07:56)
[2019-08-04 08:18] LABS: Slide Review 1 YES
[2019-08-04 08:23] VITALS: BP 198/86; PULSE 70
--- NOTE | 2019-08-04 17:44 | PCM.DS ---
Discharge Summary Date of Admission: 08/02/19 12:30 Admitting Physician: ANGELIQUE JARVIS Primary Care Provider: ANGELIQUE JARVIS Allergies Allergies No Known Drug Allergies Allergy (Unverified 08/01/19 13:27) Hospital Summary - Hospital Course Hospital Course: Chief Complaint Diagnosis ACUTE PYELONEPHRITIS Allergies Allergy/AdvReac Type Severity Reaction Status Date / Time No Known Drug Allergies Allergy Unverified 08/01/19 13:27 Vital Signs (Last 24 hours) Temp Pulse Resp BP Pulse Ox 08/04/19 07:30 98.0 F 70 14 198/86 08/04/19 06:41 98 08/04/19 03:56 97.8 F 65 17 165/74 96 08/03/19 23:47 97.8 F 70 18 160/74 97 08/03/19 20:00 97.7 F 70 18 184/79 93 L Home Medications Medication Instructions Recorded Confirmed Last Taken Type Alogliptin Benzoate [Alogliptin] 12.5 mg PO DAILY 08/01/19 08/01/19 08/01/19 History 12.5 mg Amlodipine Besylate [Norvasc] 10 mg PO DAILY 08/01/19 08/01/19 08/01/19 History 10 mg Aspirin EC 81 mg [Ecotrin 81 81 mg PO BID 08/01/19 08/01/19 08/01/19 History mg] 81 mg Atorvastatin Calcium 80 mg PO DAILY 08/01/19 08/01/19 08/01/19 History 80 mg Bupropion HCl [Bupropion HCl ER] 300 mg PO DAILY 08/01/19 08/01/19 08/01/19 History 300 mg Carvedilol 12.5 mg [Coreg 12.5 25 mg PO BID 08/01/19 08/01/19 08/01/19 History mg] Chlorthalidone 25 mg PO DAILY 08/01/19 08/01/19 08/01/19 History Cholecalciferol (Vitamin D3) 1,000 unit PO DAILY 08/01/19 08/01/19 08/01/19 08: 00 History [Vitamin D3] 1 tab Clopidogrel Bisulfate 75 mg 75 mg PO DAILY 08/01/19 08/01/19 08/01/19 History [PLAVIX 75 MG Tablet] 75 mg Famotidine 20 mg [Pepcid 20 20 mg PO BID 08/01/19 08/01/19 08/01/19 History MG] 20 mg Fluoxetine HCl 20 mg [Prozac 20 20 mg PO DAILY 08/01/19 08/01/19 08/01/19 History MG] 1 cap Hydrocodone/Acetaminophen [[place] 1 each PO BID 08/01/19 08/01/19 08/01/19 History 7.5-325 Tablet] 1 tab Losartan Potassium [Cozaar] 50 mg PO DAILY 08/01/19 08/01/19 08/01/19 History 50 MG Metformin HCl 500 mg 1,000 mg PO BIDWM 08/01/19 08/01/19 08/01/19 History [Glucophage 500 MG] Ropinirole 2Mg [Requip 2Mg 2 mg PO HS 08/01/19 08/01/19 1 Day Ago History Tab] ~07/31/19 2 mg Ciprofloxacin [Cipro 500 MG] 500 mg PO BID 7 Days #14 tablet 08/04/19 Unknown Rx Current Medications Discontinued Medications Generic Name Dose Route Start Last Admin Trade Name Freq PRN Reason Stop Dose Admin Hydrocodone Bitart/Acetaminophen 1 tab 08/01/19 22:00 08/04/19 07:52 [place] 7.5/325 Mg Tab PO 08/06/19 21:59 1 tab BID FLAVIO Administration Amlodipine Besylate 10 mg 08/02/19 10:00 08/04/19 07:53 Norvasc 5 Mg PO 09/01/19 09:59 10 mg DAILY FLAVIO Administration Aspirin 81 mg 08/01/19 22:00 08/04/19 07:50 Ecotrin 81 Mg PO 08/31/19 21:59 81 mg BID FLAVIO Administration Bupropion HCl 300 mg 08/02/19 10:00 08/04/19 07:56 Wellbutrin Xl 150 Mg PO 09/01/19 09:59 300 mg DAILY FLAVIO Administration Carvedilol 25 mg 08/01/19 22:00 08/04/19 07:52 Coreg 12.5 Mg PO 08/31/19 21:59 25 mg BID FLAVIO Administration Cholecalciferol 1,000 unit 08/02/19 10:00 08/04/19 07:51 Vitamin D PO 09/01/19 09:59 1,000 unit DAILY FLAVIO Administration Clopidogrel Bisulfate 75 mg 08/02/19 10:00 08/04/19 07:50 Plavix 75 Mg Tablet PO 09/01/19 09:59 75 mg DAILY FLAVIO Administration Famotidine 20 mg 08/01/19 22:00 08/04/19 07:51 Pepcid 20 Mg PO 08/31/19 21:59 20 mg BID FLAVIO Administration Fluoxetine HCl 20 mg 08/02/19 10:00 08/04/19 07:50 Prozac 20 Mg PO 09/01/19 09:59 20 mg DAILY FLAVIO Administration Sodium Chloride 1,000 mls @ 999 mls/hr 08/01/19 12:39 08/01/19 14:51 Sodium Chloride 0.9% 1000 Ml IV 08/01/19 13:39 999 mls/hr .Q1H1M STA Administration Sodium Chloride 1,000 mls @ 100 mls/hr 08/01/19 12:45 08/04/19 01:18 Sodium Chloride 0.9% 1000 Ml IV 08/31/19 12:44 100 mls/hr .Q10H FLAVIO Administration Ceftriaxone Sodium/Dextrose 1 g in 50 mls @ 100 mls/hr 08/01/19 18:00 18:29 Rocephin 1 Gm-D5w 50 Ml Bag IV 08/31/19 17:59 100 mls/hr Q24H FLAVIO Administration Azithromycin 500 mg in 250 mls @ 250 mls/hr 08/01/19 16:30 08/03/19 17:18 Zithromax 500 Mg/ 250 Ml Nacl Premix IV 08/31/19 16:29 250 mls/hr Q24H FLAVIO Administration Losartan Potassium 50 mg 08/02/19 10:00 08/04/19 07:53 Cozaar 50 Mg PO 09/01/19 09:59 50 mg DAILY FLAVIO Administration Metformin HCl 1,000 mg 08/01/19 17:00 08/02/19 17:34 Glucophage 500 Mg PO 08/31/19 16:59 1,000 mg BIDWM FLAVIO Administration Non-Formulary Medication 25 mg 08/02/19 10:00 Chlorthalidone [Chlorthalidone] PO 09/01/19 09:59 DAILY FLAVIO Chlorthalidone 25mg 1 each 08/02/19 10:00 08/04/19 07:55 Tablet PO 09/01/19 09:59 1 each DAILY FLAVIO Administration Ropinirole HCl 2 mg 08/01/19 22:00 08/03/19 21:43 Requip 2mg Tab PO 08/31/19 21:59 2 mg HS FLAVIO Administration Simvastatin 80 mg 08/02/19 10:00 08/04/19 07:49 Zocor 20mg PO 09/01/19 09:59 80 mg DAILY FLAVIO Administration Sitagliptin Phosphate 50 mg 08/02/19 10:00 08/04/19 07:51 Januvia 50 Mg PO 09/01/19 09:59 50 mg DAILY FLAVIO Administration Intake & Output (Last 24 hours) 08/02/19 08/03/19 08/04/19 08/05/19 11:59 11:59 11:59 11:59 Intake Total 3183 4355 1310 Output Total 1000 Balance 2183 4355 1310 Weight 73.1 kg Laboratory Results (Last 24 hours) 08/04/19 08/04/19 04:55 04:55 WBC 14.4 H RBC 4.05 L Hgb 11.8 L Hct 36.4 L MCV 89.9 MCH 29.1 MCHC 32.4 RDW 14.7 H Plt Count 359 MPV 9.5 Gran % 56.6 Eos # (Auto) 3.00 H Absolute Lymphs (auto) 1.73 Absolute Monos (auto) 1.45 H Lymphocytes % 12.0 L Monocytes % 10.1 Eosinophils % 20.9 H Basophils % 0.4 Absolute Granulocytes 8.14 H Basophils # 0.06 Sodium 139 Potassium 3.4 L Chloride 101 Carbon Dioxide 28 Anion Gap 13.2 BUN 25 H Creatinine 1.89 H Estimated GFR 37.4 Glucose 134 H Calcium 9.4 Total Bilirubin 0.20 AST 18 ALT 15 Alkaline Phosphatase 43 Serum Total Protein 6.7 Albumin 3.5 Slides for Path Review YES Orders (Last 24 hours) Category Date Time Status Discharge Routine Discharge 08/04/19 Ordered CBC W DIFF Routine Lab 08/04/19 04:55 Completed CMP Routine Lab 08/04/19 04:55 Completed Patient Care Notes (Last 24 hours) 08/04/19 10:04 Nursing Note by Kimberly Delong Pt given d/c instruction, patient and family verbalized understanding. IV d/c and dressing for home Initialized on 08/04/19 10:04 - END OF NOTE 08/04/19 09:30 (created 08/04/19 10:28) Nursing Note by Kimberly Delong Rechecked blood pressure and lower at this time. Discharge orders put in per Dr Jarvis. Initialized on 08/04/19 10:28 - END OF NOTE 08/04/19 08:01 Nursing Note by Ronda Richard RN requested morning meds to be given at this time due to elevated bp. Initialized on 08/04/19 08:01 - END OF NOTE - Vitals & Intake/Output Vital Signs: Vital Signs Temperature 98.0 F 08/04/19 07:30 Pulse Rate 70 08/04/19 07:30 Respiratory Rate 14 08/04/19 07:30 Blood Pressure 198/86 08/04/19 07:30 O2 Sat by Pulse Oximetry 98 08/04/19 06:41 Intake & Output: Intake & Output 08/02/19 08/03/19 08/04/19 08/05/19 11:59 11:59 11:59 11:59 Intake Total 3183 4355 1310 Output Total 1000 Balance 2183 4355 1310 Weight 73.1 kg - Lab Result Diagrams: 08/04/19 04:55 08/04/19 04:55 Lab Results-Last 24 Hrs: Accuchecks Date 08/04/19 Date 08/03/19 Time 08:02 Time 21:49 Accucheck Value: 166 Accucheck Value: 229 Lab Results-Last 24 Hours 08/04/19 08/04/19 Range/Units 04:55 04:55 WBC 14.4 H (4.0-10.5) K/mm3 RBC 4.05 L (4.1-5.6) M/mm3 Hgb 11.8 L (12.5-18.0) gm/dl Hct 36.4 L (42-50) % MCV 89.9 (78-100) fl MCH 29.1 (26-32) pg MCHC 32.4 (32-36) g/dl RDW 14.7 H (11.5-14.0) % Plt Count 359 (150-450) K/mm3 MPV 9.5 (6-9.5) fl Gran % 56.6 (36.0-66.0) % Eos # (Auto) 3.00 H (0-0.5) Absolute Lymphs (auto) 1.73 (1.0-4.6) Absolute Monos (auto) 1.45 H (0.0-1.3) Lymphocytes % 12.0 L (24.0-44.0) % Monocytes % 10.1 (0.0-12.0) % Eosinophils % 20.9 H (0.00-5.0) % Basophils % 0.4 (0.0-0.4) % Absolute Granulocytes 8.14 H (1.4-6.9) Basophils # 0.06 (0-0.4) Sodium 139 (137-145) mmol/L Potassium 3.4 L (3.5-5.1) mmol/L Chloride 101 (98-107) mmol/L Carbon Dioxide 28 (22-30) mmol/L Anion Gap 13.2 (5-15) MEQ/L BUN 25 H (9-20) mg/dL Creatinine 1.89 H (0.66-1.25) mg/dL Estimated GFR 37.4 ML/MIN Glucose 134 H (74-106) mg/dL Calcium 9.4 (8.4-10.2) mg/dL Total Bilirubin 0.20 (0.2-1.3) mg/dL AST 18 (17-59) U/L ALT 15 (0-50) U/L Alkaline Phosphatase 43 (38-126) U/L Serum Total Protein 6.7 (6.3-8.2) g/dL Albumin 3.5 (3.5-5.0) g/dL Slides for Path Review YES Micro Results-Entire Visit: Microbiology 08/01/19 18:40 Urine Culture - Final Clean Catch Midstream MIXED SERAFIN; 3 OR MORE TYPES. NO PREDOMINANT ORGANISM. NO FURTHER WORKUP. PLEASE RESUBMIT IF CLINICALLY INDICATED. 08/01/19 13:00 Blood Culture - Preliminary Blood NO GROWTH TO DATE 08/01/19 12:50 Blood Culture - Preliminary Blood NO GROWTH TO DATE Accuchecks Date 08/04/19 Date 08/03/19 Time 08:02 Time 21:49 Accucheck Value: 166 Accucheck Value: 229 - Procedures and Test Procedures and Tests throughout Hospitalization: Therapy Orders & Screens 08/01/19 12:39 EKG STAT Comment: Oxygen Nasal Cannula 2 lpm Comment: 08/01/19 13:36 Smoking Cessation Education ONCE Comment: Diagnosis: confusion Smoking Status: Current every day smoker How long have you smoked: 60 yrs Approximately how many cigarettes per day: 1 pk Discharge Exam General Appearance: no apparent distress, alert Neurologic Exam: alert, oriented x 3, cooperative, normal mood/affect, nml cerebellar function, sensation nml, No motor deficits Eye Exam: PERRL, EOMI, eyes nml inspection Ears, Nose, Throat Exam: normal ENT inspection, pharynx normal, moist mucous membranes Neck Exam: normal inspection, non-tender, supple, full range of motion Respiratory Exam: normal breath sounds, lungs clear, No respiratory distress Cardiovascular Exam: regular rate/rhythm, normal heart sounds Gastrointestinal/Abdomen Exam: soft, No tenderness, No mass Male Genitalia Exam: deferred Rectal Exam: deferred Back Exam: normal inspection, normal range of motion, No CVA tenderness, No vertebral tenderness Extremity Exam: normal inspection, normal range of motion Skin Exam: normal color, warm, dry Final Diagnosis/Problem List - Final Discharge Diagnosis/Problem (1) Pyelonephritis Status: Resolved Code(s): N12 - TUBULO-INTERSTITIAL NEPHRITIS, NOT SPCF ACUTE OR CHRONIC (2) Bladder cancer Status: Acute - Discharge Discharge Date: 08/04/19 Disposition: Home, Self-Care Condition: Stable Prescriptions: New Ciprofloxacin [Cipro 500 MG] 500 mg PO BID 7 Days #14 tablet Continue Atorvastatin Calcium 80 mg PO DAILY Ropinirole 2Mg [Requip 2Mg Tab] 2 mg PO HS Chlorthalidone 25 mg PO DAILY Losartan Potassium [Cozaar] 50 mg PO DAILY Amlodipine Besylate [Norvasc] 10 mg PO DAILY Bupropion HCl [Bupropion HCl ER] 300 mg PO DAILY Clopidogrel Bisulfate 75 mg [PLAVIX 75 MG Tablet] 75 mg PO DAILY Cholecalciferol (Vitamin D3) [Vitamin D3] 1,000 unit PO DAILY Aspirin EC 81 mg [Ecotrin 81 mg] 81 mg PO BID Fluoxetine HCl 20 mg [Prozac 20 MG] 20 mg PO DAILY Famotidine 20 mg [Pepcid 20 MG] 20 mg PO BID Hydrocodone/Acetaminophen [[place] 7.5-325 Tablet] 1 each PO BID Alogliptin Benzoate [Alogliptin] 12.5 mg PO DAILY Metformin HCl 500 mg [Glucophage 500 MG] 1,000 mg PO BIDWM Carvedilol 12.5 mg [Coreg 12.5 mg] 25 mg PO BID Instructions: Ciprofloxacin (Systemic), Dizziness, Nonvertigo, (DC) Additional Instructions: Activity as tolerated Continue with medications as written Report any increase in blood pressure to Dr Jarvis Follow up with: ANGELIQUE JARVIS MD [Primary Care Provider] - 08/12/19 10:30 am (at [facility])
== END 2019-08-04 10:20 | disposition home or self-care (01) | DRG 690 ==
LOC: MED SURG 12:02 → OBSVTOIN 08-02 12:30
PROVIDERS: ADMIT General Practice; ATTEND General Practice
DX: N12 Tubulo-interstitial nephritis, not specified as acute or chronic (principal); I12.9 Hypertensive chronic kidney disease with stage 1 through stage 4 chronic kidney disease, or unspecified chronic kidney disease; C67.9 Malignant neoplasm of bladder, unspecified; E11.22 Type 2 diabetes mellitus with diabetic chronic kidney disease; N18.9 Chronic kidney disease, unspecified; G25.81 Restless legs syndrome; R42 Dizziness and giddiness; E78.00 Pure hypercholesterolemia, unspecified; Z86.73 Personal history of transient ischemic attack (TIA), and cerebral infarction without residual deficits; Z79.01 Long term (current) use of anticoagulants; Z79.899 Other long term (current) drug therapy
CPT/HCPCS: 36415; 70551; 71046; 74176; 80053; 81001; 82962; 83036; 83880; 85025; 87040; 87086; 93005; 94760; G0378; J0456; J0696; A9270-GY

== ENCOUNTER 2019-08-17 16:25 | Observation (INO) | payer MEDICARE, BC ==
[2019-08-17] MEDS ORDERED: Sodium Chloride 0.9% 1000 ML 1,000 ML IV STA ×2 (16:46→18:22)
--- NOTE | 2019-08-17 16:52 | ERPHSYRPT ---
- History of Present Illness Time Seen by Provider: 08/17/19 16:45 Source: patient, family Exam Limitations: no limitations Patient Subjective Stated Complaint: pt here for weakness,confusion, he was seen 3 weeks ago for a UTi and family states he has not been well since, Triage Nursing Assessment: pt arrived per wc, assist of one to get from wc to bed, resp easy, chest clear, no edma noted, alert to name, date and place Physician History: Patient has not been doing well since being discharged from the hospital 2 weeks ago for a UTI. He has had recurrent vomiting, recurrent falls and increasing confusion with visual and auditory hallucinations. Patient was placed on Zofran yesterday which resolved his vomiting. Symptoms have worsened over the past three days. Timing/Duration: week(s) (2), worse (over past 3 days) Severity: moderate Character of Deficits: none Deficits: decrease ability to walk (recurrent falls past two weeks, worse over the past three days) Baseline/Normal Cognition: alert oriented x 3 Current Cognition: alert but confused Baseline Gait: walks w/o assistance Associated Symptoms: confusion, fatigue, nausea, vomiting, weakness, trouble walking, No fever, No chills, No loss of consciousness, No insomnia, No muscle spasms, No numbness/tingling in legs/feet, No paresthesia, No ringing in ears, No seizures, No slurred speech, No vision changes, No chest pain, No headache Allergies/Adverse Reactions: No Known Drug Allergies Allergy (Verified 08/17/19 16:45) Home Medications: Alogliptin Benzoate [Alogliptin] 12.5 mg PO DAILY 08/01/19 [History] Amlodipine Besylate [Norvasc] 10 mg PO DAILY 08/01/19 [History] Aspirin EC 81 mg [Ecotrin 81 mg] 81 mg PO BID 08/01/19 [History] Atorvastatin Calcium 80 mg PO DAILY 08/01/19 [History] Bupropion HCl [Bupropion HCl ER] 300 mg PO DAILY 08/01/19 [History] Carvedilol 12.5 mg [Coreg 12.5 mg] 25 mg PO BID 08/01/19 [History] Chlorthalidone 25 mg PO DAILY 08/01/19 [History] Cholecalciferol (Vitamin D3) [Vitamin D3] 1,000 unit PO DAILY 08/01/19 [History] Clopidogrel Bisulfate 75 mg [PLAVIX 75 MG Tablet] 75 mg PO DAILY 08/01/19 [History] Famotidine 20 mg [Pepcid 20 MG] 20 mg PO BID 08/01/19 [History] Fluoxetine HCl 20 mg [Prozac 20 MG] 20 mg PO DAILY 08/01/19 [History] Hydrocodone/Acetaminophen [[place] 7.5-325 Tablet] 1 each PO BID 08/01/19 [History ] Losartan Potassium [Cozaar] 50 mg PO DAILY 08/01/19 [History] Metformin HCl 500 mg [Glucophage 500 MG] 1,000 mg PO BIDWM 08/01/19 [ History] Ropinirole 2Mg [Requip 2Mg Tab] 2 mg PO HS 08/01/19 [History] Donepezil HCl 10 mg [Aricept 10 MG] 10 mg PO DAILY 08/17/19 [History] Hx Influenza Vaccination/Date Given: Yes Hx Pneumococcal Vaccination/Date Given: Yes Immunizations Up to Date: Yes - Review of Systems Constitutional: Fatigue, Lethargy, Malaise Eyes: No Eye Pain, No Vision Changes Ears, Nose, & Throat: No Nose Discharge, No Mouth Pain, No Throat Swelling Respiratory: No Cough, No Cyanosis, No Dyspnea on Exertion (MATOS) Cardiac: No Chest Pain, No Palpitations, No Syncope Abdominal/Gastrointestinal: Nausea, Vomiting, No Abdominal Pain, No Hematochezia , No Melena Genitourinary Symptoms: No Dysuria, No Frequency, No Hematuria, No Flank Pain Musculoskeletal: No Back Pain, No Neck Pain Neurological: No Dizziness, No Focal Weakness, No Headache, No Paralysis, No Seizure, No Tremors Psychological: Hallucinations, No Anxiety Endocrine: No Excessive Sweating Hematologic/Lymphatic: No Easy Bleeding, No Easy Bruising All Other Systems: Reviewed and Negative - Past Medical History Pertinent Past Medical History: Yes Neurological History: TIA ENT History: Cataracts Cardiac History: Coronary Artery Disease Respiratory History: COPD, Sleep Apnea Endocrine Medical History: Diabetes Type II Musculoskeletal History: No Pertinent History GI Medical History: GERD History: Renal Disease Psycho-Social History: No Pertinent History Male Reproductive Disorders: No Pertinent History Other Medical History: exposed to agent orange in [place],UTI 07/2019 - Past Surgical History Past Surgical History: Yes (heart stint, abd hernia repair) Neuro Surgical History: No Pertinent History Cardiac: Cardiac Catheterization Respiratory: No Pertinent History Gastrointestinal: No Pertinent History Genitourinary: No Pertinent History Musculoskeletal: No Pertinent History Male Surgical History: No Pertinent History Other Surgical History: miles osunaey, - Social History Smoking Status: Current every day smoker How long have you smoked: 60 yrs Exposure to second hand smoke: Yes Drug Use: none Patient Lives Alone: No - Nursing Vital Signs Nursing Vital Signs: Initial Vital Signs O2 Sat by Pulse Oximetry 97 08/17/19 16:26 Pain Scale Pain Intensity 0 - Cesar Coma Scale Best Eye Response ([place]): (4) open spontaneously Best Verbal Response ([place]): (5) oriented Best Motor Response ([place]): (6) obeys commands [place] Total: 15 - Physical Exam General Appearance: no apparent distress, alert Eye Exam: left eye: normal inspection, PERRL, EOMI Ears, Nose, Throat Exam: normal ENT inspection, TMs normal, pharynx normal, moist mucous membranes Neck Exam: normal inspection, non-tender, supple, full range of motion, No meningismus, No Brudzinski, No limited range of motion Respiratory: normal breath sounds, lungs clear, airway intact, No chest tenderness, No respiratory distress, No crackles/rales, No rhonchi, No wheezing Cardiovascular: regular rate/rhythm, normal heart sounds, capillary refill <2 sec Gastrointestinal: soft, normal bowel sounds, No tenderness, No mass Back Exam: No normal inspection, No CVA tenderness, No vertebral tenderness, No rash Extremity Exam: normal inspection, normal range of motion, pelvis stable Peripheral Pulses: dorsalis-pedis (R): 2+, dorsalis-pedis (L): 2+ Mental Status: alert, oriented x 3, cooperative, 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 Exam: normal hearing, normal speech, PERRL Coordination/Gait: normal cerebellar function Motor/Sensory: no motor deficit, no sensory deficit, No sensory deficit, No weak motor strength RUE, No weak motor strength LUE, No weak motor strength RLE , No weak motor strength LLE DTR: ankle (R): 2+, ankle (L): 2+ Skin Exam: normal color, warm, dry, No rash, No petechiae, No cyanosis SpO2 Interpretation: normal SpO2: 98 O2 Delivery: Room Air - Course Nursing assessment & vital signs reviewed: Yes EKG Interpreted by Me: RATE (70), Sinus Rhythm, NORMAL AXIS, NORMAL INTERVALS, NORMAL QRS, NORMAL ST-T, Other (no appreciable change from 08/01/2019) - CT Exams Head CT Interpretation: Negative, Other (per radiologist interpretation: There is a delayed diffuse cerebral and cerebellar volume loss and chronic microvascular ischemic disease. There is encephalomalacia in the right occipital lobe and in the posterior left parietal lobe suspicious for chronic infarcts. No acute intracranial pathology.) Abdomen/Pelvis CT Interpretation: Other (per radiologist interpretation: Overall impression: There may be a small hiatal hernia. There is prostate gland enlargement and calcifications. There is colonic diverticulosis with last thickening and mild fat stranding in the sigmoid colon suspicious for mild acute diverticulitis without visible abscess or signs of gross perforation. There is minimal urine volume in the urinary bladder but significant urinary bladder wall thickening at the dome of the urinary bladder, cannot exclude neoplasm or focal cystitis. the appendix is unremarkable. No free air. No significant fluid collection. No enlarged lymph nodes. 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 The right kidney appears unremarkable. mild hepatomegaly) Ordered Tests: Active Orders 24 hr Category Date Time Status Manager Agency STAT Care 08/17/19 16:48 Active EKG-ER Only [facility] 08/17/19 16:46 Active IV Insertion [facility] 08/17/19 16:46 Active NPO (ED) [facility] 08/17/19 16:48 Active Orthostatic Vital Signs [facility] 08/17/19 16:51 Active Pulse Oximetry (ED) [facility] 08/17/19 16:46 Active ABDOMEN AND PELVIS W/0 CONTRAS [CT] Stat Exams 08/17/19 16:51 Taken CHEST 1 VIEW (PORTABLE) Stat Exams 08/17/19 16:47 Taken HEAD WITHOUT CONTRAST [CT] Stat Exams 08/17/19 16:48 Taken AMYLASE [facility] 08/17/19 17:02 Completed BLOOD CULTURE [facility] 08/17/19 17:04 Received CBC W DIFF [facility] 08/17/19 17:02 Completed CMP [facility] 08/17/19 17:02 Completed CULTURE,URINE Stat Lab 08/17/19 18:55 Received ETHYL ALCOHOL Stat Lab 08/17/19 17:02 Completed LIPASE Stat Lab 08/17/19 17:02 Completed Lactic Acid Stat Lab 08/17/19 16:50 Completed Lactic Acid Stat Lab 08/17/19 19:02 Ordered MAGNESIUM Stat Lab 08/17/19 17:02 Completed PROTIME WITH INR Stat Lab 08/17/19 17:02 Completed PTT Stat Lab 08/17/19 17:02 Completed TROPONIN Q3H Lab 08/17/19 17:02 Completed TROPONIN Q3H Lab 08/17/19 20:00 Ordered TROPONIN Q3H Lab 08/17/19 23:00 Ordered TROPONIN Q3H Lab 08/18/19 02:00 Ordered TROPONIN Q3H Lab 08/18/19 05:00 Ordered UA W/RFX UR CULTURE Stat Lab 08/17/19 18:55 Completed Urine Triage Profile Stat Lab 08/17/19 18:55 Completed VENOUS BLOOD GAS Stat Lab 08/17/19 16:50 Completed Medication Summary Discontinued Medications Generic Name Dose Route Start Last Admin Trade Name Freq PRN Reason Stop Dose Admin Sodium Chloride 1,000 mls @ 999 mls/hr 08/17/19 16:46 08/17/19 18:34 Sodium Chloride 0.9% 1000 Ml IV 08/17/19 17:46 Infused .Q1H1M STA Infusion Sodium Chloride Confirm 08/17/19 17:00 Sodium Chloride 0.9% 1000 Ml Administered 08/17/19 17:01 Dose 1,000 mls @ ud .ROUTE .STK-MED ONE Sodium Chloride 1,000 mls @ 999 mls/hr 08/17/19 18:22 08/17/19 18:40 Sodium Chloride 0.9% 1000 Ml IV 08/17/19 19:22 999 mls/hr .Q1H1M STA Administration Sodium Chloride Confirm 08/17/19 18:37 Sodium Chloride 0.9% 1000 Ml Administered 08/17/19 18:38 Dose 1,000 mls @ ud .ROUTE .STK-MED ONE Lab/Rad Data: Laboratory Result Diagrams 08/17/19 17:02 08/17/19 17:02 Laboratory Results 08/17/19 08/17/19 08/17/19 Range/Units 18:55 18:55 17:02 WBC (4.0-10.5) K/mm3 RBC (4.1-5.6) M/mm3 Hgb (12.5-18.0) gm/dl Hct (42-50) % MCV (78-100) fl MCH (26-32) pg MCHC (32-36) g/dl RDW (11.5-14.0) % Plt Count (150-450) K/mm3 MPV (6-9.5) fl Gran % (36.0-66.0) % Eos # (Auto) (0-0.5) Absolute Lymphs (auto) (1.0-4.6) Absolute Monos (auto) (0.0-1.3) Lymphocytes % (24.0-44.0) % Monocytes % (0.0-12.0) % Eosinophils % (0.00-5.0) % Basophils % (0.0-0.4) % Absolute Granulocytes (1.4-6.9) Basophils # (0-0.4) PT (8.83-12.87) SECONDS INR (0.8-3.0) APTT (24.1-36.1) SECONDS pO2/FiO2 Ratio % VBG pH (7.32-7.42) VBG pCO2 at Pat Temp (42-55) mm/Hg VBG pO2 at Pat Temp (25-40) mm/Hg VBG HCO3 (22-28) meq/L VBG O2 Sat ([place]) (95-100) VBG Base Excess (-2.0-2.0) VBG Hemoglobin VBG Carboxyhemoglobin (0.0-6.9) % T HGB POC Potassium (3.5-5.1) Sodium (137-145) mmol/L Potassium (3.5-5.1) mmol/L Chloride (98-107) mmol/L Carbon Dioxide (22-30) mmol/L Anion Gap (5-15) MEQ/L BUN (9-20) mg/dL Creatinine (0.66-1.25) mg/dL Estimated GFR ML/MIN Glucose (74-106) mg/dL Lactic Acid (0.4-2.0) Calcium (8.4-10.2) mg/dL Magnesium (1.6-2.3) mg/dL Total Bilirubin (0.2-1.3) mg/dL AST (17-59) U/L ALT (0-50) U/L Alkaline Phosphatase (38-126) U/L Troponin I < 0.012 (0.000-0.034) ng/mL Serum Total Protein (6.3-8.2) g/dL Albumin (3.5-5.0) g/dL Amylase (30-110) U/L Lipase (23-300) U/L Urine Color YELLOW (YELLOW) Urine Appearance SLIGHTLY CLOUDY (CLEAR) Urine pH 7.0 (5-6) Ur Specific [place] 1.016 (1.005-1.025) Urine Protein 100 (Negative) Urine Ketones NEGATIVE (NEGATIVE) Urine Blood NEGATIVE (0-5) Jamin/ul Urine Nitrite NEGATIVE (NEGATIVE) Urine Bilirubin NEGATIVE (NEGATIVE) Urine Urobilinogen NEGATIVE (0-1) mg/dL Ur Leukocyte Esterase NEGATIVE (NEGATIVE) Urine WBC (Auto) NONE (0-5) /HPF Urine RBC (Auto) NONE (0-2) /HPF U Hyaline Cast (Auto) 0-2 (0-2) /LPF U Epithel Cells (Auto) NONE (FEW) /HPF Urine Bacteria (Auto) NONE (NEGATIVE) /HPF Urine Culture Reflexed NO (NO) Urine Glucose NEGATIVE (NEGATIVE) mg/dL Urine Opiates Level POSITIVE (NEGATIVE) Ur Methadone NEGATIVE (NEGATIVE) Urine Barbiturates NEGATIVE (NEGATIVE) Ur Phencyclidine (PCP) NEGATIVE (NEGATIVE) Urine Amphetamine NEGATIVE (NEGATIVE) U Benzodiazepine Level NEGATIVE (NEGATIVE) Urine Cocaine NEGATIVE (NEGATIVE) Urine Marijuana (THC) NEGATIVE (NEGATIVE) Ethyl Alcohol (0-10) mg/dL 08/17/19 08/17/19 08/17/19 Range/Units 17:02 17:02 17:02 WBC 13.6 H (4.0-10.5) K/mm3 RBC 4.54 (4.1-5.6) M/mm3 Hgb 13.3 (12.5-18.0) gm/dl Hct 40.8 L (42-50) % MCV 89.9 (78-100) fl MCH 29.3 (26-32) pg MCHC 32.6 (32-36) g/dl RDW 15.4 H (11.5-14.0) % Plt Count 455 H (150-450) K/mm3 MPV 9.2 (6-9.5) fl Gran % 55.7 (36.0-66.0) % Eos # (Auto) 1.98 H (0-0.5) Absolute Lymphs (auto) 2.62 (1.0-4.6) Absolute Monos (auto) 1.31 H (0.0-1.3) Lymphocytes % 19.3 L (24.0-44.0) % Monocytes % 9.7 (0.0-12.0) % Eosinophils % 14.6 H (0.00-5.0) % Basophils % 0.7 (0.0-0.4) % Absolute Granulocytes 7.56 H (1.4-6.9) Basophils # 0.09 (0-0.4) PT 13.6 H (8.83-12.87) SECONDS INR 1.20 (0.8-3.0) APTT 31.1 (24.1-36.1) SECONDS pO2/FiO2 Ratio % VBG pH (7.32-7.42) VBG pCO2 at Pat Temp (42-55) mm/Hg VBG pO2 at Pat Temp (25-40) mm/Hg VBG HCO3 (22-28) meq/L VBG O2 Sat ([place]) (95-100) VBG Base Excess (-2.0-2.0) VBG Hemoglobin VBG Carboxyhemoglobin (0.0-6.9) % T HGB POC Potassium (3.5-5.1) Sodium 143 (137-145) mmol/L Potassium 3.5 (3.5-5.1) mmol/L Chloride 98 (98-107) mmol/L Carbon Dioxide 29 (22-30) mmol/L Anion Gap 19.6 H (5-15) MEQ/L BUN 41 H (9-20) mg/dL Creatinine 3.31 H (0.66-1.25) mg/dL Estimated GFR 19.6 ML/MIN Glucose 136 H (74-106) mg/dL Lactic Acid (0.4-2.0) Calcium 9.6 (8.4-10.2) mg/dL Magnesium 2.2 (1.6-2.3) mg/dL Total Bilirubin 0.40 (0.2-1.3) mg/dL AST 35 (17-59) U/L ALT 24 (0-50) U/L Alkaline Phosphatase 46 (38-126) U/L Troponin I (0.000-0.034) ng/mL Serum Total Protein 7.5 (6.3-8.2) g/dL Albumin 4.3 (3.5-5.0) g/dL Amylase 102 (30-110) U/L Lipase 69 (23-300) U/L Urine Color (YELLOW) Urine Appearance (CLEAR) Urine pH (5-6) Ur Specific [place] (1.005-1.025) Urine Protein (Negative) Urine Ketones (NEGATIVE) Urine Blood (0-5) Jamin/ul Urine Nitrite (NEGATIVE) Urine Bilirubin (NEGATIVE) Urine Urobilinogen (0-1) mg/dL Ur Leukocyte Esterase (NEGATIVE) Urine WBC (Auto) (0-5) /HPF Urine RBC (Auto) (0-2) /HPF U Hyaline Cast (Auto) (0-2) /LPF U Epithel Cells (Auto) (FEW) /HPF Urine Bacteria (Auto) (NEGATIVE) /HPF Urine Culture Reflexed (NO) Urine Glucose (NEGATIVE) mg/dL Urine Opiates Level (NEGATIVE) Ur Methadone (NEGATIVE) Urine Barbiturates (NEGATIVE) Ur Phencyclidine (PCP) (NEGATIVE) Urine Amphetamine (NEGATIVE) U Benzodiazepine Level (NEGATIVE) Urine Cocaine (NEGATIVE) Urine Marijuana (THC) (NEGATIVE) Ethyl Alcohol < 10 (0-10) mg/dL 08/17/19 08/17/19 Range/Units 16:50 16:50 WBC (4.0-10.5) K/mm3 RBC (4.1-5.6) M/mm3 Hgb (12.5-18.0) gm/dl Hct (42-50) % MCV (78-100) fl MCH (26-32) pg MCHC (32-36) g/dl RDW (11.5-14.0) % Plt Count (150-450) K/mm3 MPV (6-9.5) fl Gran % (36.0-66.0) % Eos # (Auto) (0-0.5) Absolute Lymphs (auto) (1.0-4.6) Absolute Monos (auto) (0.0-1.3) Lymphocytes % (24.0-44.0) % Monocytes % (0.0-12.0) % Eosinophils % (0.00-5.0) % Basophils % (0.0-0.4) % Absolute Granulocytes (1.4-6.9) Basophils # (0-0.4) PT (8.83-12.87) SECONDS INR (0.8-3.0) APTT (24.1-36.1) SECONDS pO2/FiO2 Ratio 21.0 % VBG pH 7.41 (7.32-7.42) VBG pCO2 at Pat Temp 48 (42-55) mm/Hg VBG pO2 at Pat Temp 49 H (25-40) mm/Hg VBG HCO3 30.4 H* (22-28) meq/L VBG O2 Sat ([place]) 88.9 L (95-100) VBG Base Excess 4.7 H (-2.0-2.0) VBG Hemoglobin 14.2 VBG Carboxyhemoglobin 5.9 (0.0-6.9) % T HGB POC Potassium 3.6 (3.5-5.1) Sodium (137-145) mmol/L Potassium (3.5-5.1) mmol/L Chloride (98-107) mmol/L Carbon Dioxide (22-30) mmol/L Anion Gap (5-15) MEQ/L BUN (9-20) mg/dL Creatinine (0.66-1.25) mg/dL Estimated GFR ML/MIN Glucose (74-106) mg/dL Lactic Acid 3.8 H (0.4-2.0) Calcium (8.4-10.2) mg/dL Magnesium (1.6-2.3) mg/dL Total Bilirubin (0.2-1.3) mg/dL AST (17-59) U/L ALT (0-50) U/L Alkaline Phosphatase (38-126) U/L Troponin I (0.000-0.034) ng/mL Serum Total Protein (6.3-8.2) g/dL Albumin (3.5-5.0) g/dL Amylase (30-110) U/L Lipase (23-300) U/L Urine Color (YELLOW) Urine Appearance (CLEAR) Urine pH (5-6) Ur Specific [place] (1.005-1.025) Urine Protein (Negative) Urine Ketones (NEGATIVE) Urine Blood (0-5) Jamin/ul Urine Nitrite (NEGATIVE) Urine Bilirubin (NEGATIVE) Urine Urobilinogen (0-1) mg/dL Ur Leukocyte Esterase (NEGATIVE) Urine WBC (Auto) (0-5) /HPF Urine RBC (Auto) (0-2) /HPF U Hyaline Cast (Auto) (0-2) /LPF U Epithel Cells (Auto) (FEW) /HPF Urine Bacteria (Auto) (NEGATIVE) /HPF Urine Culture Reflexed (NO) Urine Glucose (NEGATIVE) mg/dL Urine Opiates Level (NEGATIVE) Ur Methadone (NEGATIVE) Urine Barbiturates (NEGATIVE) Ur Phencyclidine (PCP) (NEGATIVE) Urine Amphetamine (NEGATIVE) U Benzodiazepine Level (NEGATIVE) Urine Cocaine (NEGATIVE) Urine Marijuana (THC) (NEGATIVE) Ethyl Alcohol (0-10) mg/dL - Progress Progress: unchanged Progress Note: 08/17/19 19:45 Patient is hemodynamically in good condition with no focal neurologic deficits. Discussed with .: Storm (@19:42, discussed the patient with Dr Jarvis, hospitalist and patient's physician. Dr Jarvis accepted the patient for observation to [facility].) Will see patient in: hospital (observation) Counseled pt/family regarding: lab results, diagnosis, need for follow-up, rad results - Departure Departure Disposition: Observation ([facility] telemetry) Clinical Impression: Acute renal insufficiency, Confusion with non-focal neuro exam, Elevated lactic acid level Nausea and vomiting Qualifiers: Vomiting type: unspecified Vomiting Intractability: unspecified Qualified Code( s): R11.2 - Nausea with vomiting, unspecified Hypertension Qualifiers: Hypertension type: unspecified Qualified Code(s): I10 - Essential (primary) hypertension Leukocytosis, unspecified Qualifiers: Leukocytosis type: unspecified Qualified Code(s): D72.829 - Elevated white blood cell count, unspecified Condition: Fair Critical Care Time: No Referrals: ANGELIQUE JARVIS MD [Primary Care Provider] -
[2019-08-17] MEDS ORDERED: Sodium Chloride 0.9% 1000 ML 1,000 ML ONE ×2 (17:00→18:37)
[2019-08-17 17:05] LABS: Lactic Acid 3.8 (0.4-2.0)
[2019-08-17 17:07] LABS: VBG BASE EXCESS 4.7 (-2.0-2.0); VBG CARBOXYHEMOGLOBIN 5.9 % T HGB (0.0-6.9); VBG HCO3- 30.4 meq/L (22-28); VBG HEMOGLOBIN 14.2; VBG O2 SATURATION 88.9 (95-100); VBG POTASSIUM 3.6 (3.5-5.1); VBG pH 7.41 (7.32-7.42)
[2019-08-17 17:23] LABS: Absolute Neutrophil Ct (ANC) 7.56 (1.4-6.9); BASOPHIL % 0.7 % (0.0-0.4); Basophil (Absolute #) 0.09 (0-0.4); Eosinophil % 14.6 % (0.00-5.0); Eosinophil (Absolute #) 1.98 (0-0.5); Hematocrit 40.8 % (42-50); Hemoglobin 13.3 gm/dl (12.5-18.0); Lymphocyte (Absolute #) 2.62 (1.0-4.6); Lymphocytes % 19.3 % (24.0-44.0); Mean Cell Volume 89.9 fl (78-100); Mean Corpuscular Hemoglobin 29.3 pg (26-32); Mean Corpuscular Hgb Concent. 32.6 g/dl (32-36); Mean Platelet Volume 9.2 fl (6-9.5); Monocyte (Absolute #) 1.31 (0.0-1.3); Monocytes % 9.7 % (0.0-12.0); Neutrophil % 55.7 % (36.0-66.0); Platelet Count 455 K/mm3 (150-450); Red Blood Count 4.54 M/mm3 (4.1-5.6); Red Cell Distribution Width 15.4 % (11.5-14.0); White Blood Count 13.6 K/mm3 (4.0-10.5)
[2019-08-17 17:32] LABS: INR 1.2 (0.8-3.0); PROTIME 13.6 SECONDS (8.83-12.87)
[2019-08-17 17:34] LABS: PTT 31.1 SECONDS (24.1-36.1)
[2019-08-17 17:37] LABS: ALBUMIN 4.3 g/dL (3.5-5.0); ALKALINE PHOSPHATASE 46 U/L (38-126); AMYLASE 102 U/L (30-110); ANION GAP 19.6 MEQ/L (5-15); BLOOD UREA NITROGEN 41 mg/dL (9-20); CHLORIDE 98 mmol/L (98-107); Calcium 9.6 mg/dL (8.4-10.2); Carbon Dioxide 29 mmol/L (22-30); Creatinine 1 3.31 mg/dL (0.66-1.25); Glucose 136 mg/dL (74-106); LIPASE 69 U/L (23-300); MAGNESIUM 2.2 mg/dL (1.6-2.3); Potassium 3.5 mmol/L (3.5-5.1); SGOT/AST 35 U/L (17-59); SGPT/ALT 24 U/L (0-50); SODIUM 143 mmol/L (137-145); Total Protein 7.5 g/dL (6.3-8.2)
[2019-08-17 17:49] LABS: ETHYL ALCOHOL < 10 mg/dL (0-10)
[2019-08-17 19:16] LABS: Appearance SLIGHTLY CLOUDY (CLEAR); Bilirubin NEGATIVE (NEGATIVE); Blood NEGATIVE Ery/ul (0-5); Glucose NEGATIVE (NEGATIVE); Hyaline Casts 0-2 /LPF (0-2); Ketones NEGATIVE (NEGATIVE); Leukocyte Esterase NEGATIVE (NEGATIVE); Nitrite NEGATIVE (NEGATIVE); Protein,Urine Dip 100 (Negative); Specific Gravity 1.016 (1.005-1.025); Urobilinogen NEGATIVE mg/dL (0-1)
[2019-08-17 19:19] LABS: Amphetamine,Urine NEGATIVE (NEGATIVE); Barbiturate,Urine NEGATIVE (NEGATIVE); Benzodiazepine,Urine NEGATIVE (NEGATIVE); Cocaine,Urine NEGATIVE (NEGATIVE); Methadone,Urine NEGATIVE (NEGATIVE); Opiate,Urine POSITIVE (NEGATIVE); PCP,Urine NEGATIVE (NEGATIVE); THC,Urine NEGATIVE (NEGATIVE)
[2019-08-17] MEDS ORDERED: TYLENOL 325 MG PO PRN (21:07)
[2019-08-17] MEDS ORDERED: Zofran 4 MG/2 ML VIAL IV PRN (21:07)
[2019-08-17] MEDS: Sodium Chloride 0.9% 1000 ML 1,000 ML IV SCH (21:30)
[2019-08-17] MEDS: NORCO 7.5/325 MG TAB PO SCH (22:59)
[2019-08-17] MEDS: Pepcid 20 MG PO SCH (22:59)
[2019-08-17] MEDS: ECOTRIN 81 MG PO SCH (22:59)
[2019-08-17] MEDS: REQUIP 2MG TAB PO SCH (22:59)
[2019-08-17] MEDS: COREG 12.5 MG PO SCH (22:59)
[2019-08-17] MEDS ORDERED: NovoLOG Insulin SQ PRN (23:52)
[2019-08-18] MEDS: Sodium Chloride 0.9% 1000 ML 1,000 ML IV SCH ×4 (02:54→21:07)
[2019-08-18 04:57] LABS: Absolute Neutrophil Ct (ANC) 5.21 (1.4-6.9); BASOPHIL % 0.7 % (0.0-0.4); Basophil (Absolute #) 0.08 (0-0.4); Eosinophil % 17.2 % (0.00-5.0); Eosinophil (Absolute #) 1.93 (0-0.5); Hematocrit 34.7 % (42-50); Hemoglobin 11.4 gm/dl (12.5-18.0); Lymphocyte (Absolute #) 2.58 (1.0-4.6); Mean Cell Volume 90.8 fl (78-100); Mean Corpuscular Hemoglobin 29.8 pg (26-32); Mean Corpuscular Hgb Concent. 32.9 g/dl (32-36); Mean Platelet Volume 9.3 fl (6-9.5); Monocyte (Absolute #) 1.44 (0.0-1.3); Monocytes % 12.8 % (0.0-12.0); Neutrophil % 46.3 % (36.0-66.0); Platelet Count 378 K/mm3 (150-450); Red Blood Count 3.82 M/mm3 (4.1-5.6); Red Cell Distribution Width 15.2 % (11.5-14.0); White Blood Count 11.2 K/mm3 (4.0-10.5)
[2019-08-18 05:20] LABS: ANION GAP 12.1 MEQ/L (5-15); Calcium 8.6 mg/dL (8.4-10.2); Creatinine 1 2.74 mg/dL (0.66-1.25); Potassium 3.3 mmol/L (3.5-5.1)
[2019-08-18] MEDS: ECOTRIN 81 MG PO SCH ×2 (09:05→21:12)
[2019-08-18] MEDS: NORCO 7.5/325 MG TAB PO SCH ×2 (09:05→21:12)
[2019-08-18] MEDS: COREG 12.5 MG PO SCH ×2 (09:05→21:12)
[2019-08-18] MEDS: Pepcid 20 MG PO SCH ×2 (09:05→21:12)
[2019-08-18] MEDS: ENOXAPARIN SODIUM SQ SCH (09:06)
--- NOTE | 2019-08-18 10:03 | XRAY ---
Indication: Confusion. Recurrent falls. Multiple contiguous axial images obtained through the head without contrast. Comparison: January 13, 2008. There is progressive global atrophy and moderate periventricular degenerative micro-ischemia within normal limits for patient's age. Stable small focus of old infarct right occipital lobe. Again no acute intracranial hemorrhage, abnormal extra-axial fluid collection, or mass effect. Fourth ventricle is midline without hydrocephalus. Bony calvarium intact. Minimal mucosal thickening of both ethmoid and left sphenoid sinuses without fluid leveling. Mastoid air cells are clear. Impression: 1. Again normal aging brain including atrophy, degenerative micro-ischemia, and old right occipital lobe infarct. 2. No acute intracranial abnormalities. 3. Minimal paranasal sinus disease. Comment: Preliminary interpretation was made by VR. No discrepancy. CT DI 50.62
--- NOTE | 2019-08-18 10:04 | XRAY ---
Indication: Sepsis. Comparison: August 01, 2019. Portable chest unchanged again hyperinflated with lingula calcified granuloma. Heart and mediastinal structures within normal limits. No new/acute cardiopulmonary abnormalities.
--- NOTE | 2019-08-18 10:04 | XRAY ---
Indication: Confusion. Renal failure. Comparison: One day earlier. Portable chest remains hyperinflated and clear again with incidental calcified granulomas. Heart and mediastinal structures remain within normal limits. No new/acute findings.
--- NOTE | 2019-08-18 10:06 | XRAY ---
Indication: Weakness, nausea, and vomiting. Multiple contiguous axial images obtained through the abdomen and pelvis without contrast as ordered. Comparison: August 02, 2019. Lung bases now demonstrates bibasilar dependent atelectasis. Small left lung base calcified granuloma not previously imaged. No focal infiltrate or effusion. Heart is not enlarged. Noncontrasted stomach and bowel loops remain nonobstructed again with scattered colonic diverticulosis. Interval increasing mild/moderate diffuse scattered colonic fecal debris throughout, especially sigmoid colon. Mid sigmoid now demonstrates small focus of minimal wall thickening/stranding, possible colitis/diverticulitis in the right clinical setting. No free fluid/air. Stable atrophic left kidney with cysts, calcified splenic granulomas, enlarged prostate gland, small bilateral fatty inguinal hernias, cholecystectomy, and pelvic ventral hernia repair. Remaining liver, pancreas, spleen, adrenal glands, kidneys, ureters, and bladder appear unremarkable for noncontrast exam. Again mild scattered aortoiliac calcifications without AAA. Impression: 1. Worsening diffuse fecal stasis with stable colonic diverticulosis. There is minimal sigmoid wall thickening/stranding. Rule out colitis/diverticulitis. 2. Stable left renal atrophy with cysts, enlarged prostate gland, and small bilateral fatty inguinal hernias. Comment: Preliminary interpretation was made by C. No critical discrepancy. CT DI 22.64
--- NOTE | 2019-08-18 12:27 | PCM.HP ---
History of Present Illness - Chief Complaint Chief Complaint: nausea and vomiting for 2 weeks History of Present Illness: is a 74 year old male.Patient has not been doing well since being discharged from the hospital 2 weeks ago for a UTI. He has had recurrent vomiting, recurrent falls and increasing confusion with visual and auditory hallucinations. Patient was placed on Zofran yesterday which resolved his vomiting. Symptoms have worsened over the past three days. Timing/Duration: week(s) (2), worse (over past 3 days) Severity: moderate Character of Deficits: none Deficits: decrease ability to walk (recurrent falls past two weeks, worse over the past three days) Baseline/Normal Cognition: alert oriented x 3 Current Cognition: alert but confused Baseline Gait: walks w/o assistance Associated Symptoms: confusion, fatigue, nausea, vomiting, weakness, trouble walking, No fever, No chills, No loss of consciousness, No insomnia, No muscle spasms, No numbness/tingling in legs/feet, No paresthesia, No ringing in ears, No seizures, No slurred speech, No vision changes, No chest pain, No headache - Review of Systems Constitutional: Fatigue, Lethargy, Malaise, Weakness, No Fever, No Chills Eyes: No Symptoms Ears, Nose, & Throat: No Symptoms Respiratory: No Cough, No Short Of Breath Cardiac: No Chest Pain, No Edema, No Syncope Abdominal/Gastrointestinal: No Abdominal Pain, No Nausea, No Vomiting, No Diarrhea Genitourinary Symptoms: No Dysuria Musculoskeletal: No Back Pain, No Neck Pain Skin: No Rash Neurological: No Dizziness, No Focal Weakness, No Sensory Changes Psychological: No Symptoms Endocrine: No Symptoms Hematologic/Lymphatic: No Symptoms Immunological/Allergic: No Symptoms Medications & Allergies Home Medications: Home Medication List Alogliptin Benzoate [Alogliptin] 12.5 mg PO DAILY 08/01/19 [History Confirmed ] Amlodipine Besylate [Norvasc] 10 mg PO DAILY 08/01/19 [History Confirmed ] Aspirin EC 81 mg [Ecotrin 81 mg] 81 mg PO BID 08/01/19 [History Confirmed 08/17/19] Atorvastatin Calcium 80 mg PO DAILY 08/01/19 [History Confirmed 08/17/19] Bupropion HCl [Bupropion HCl ER] 300 mg PO DAILY 08/01/19 [History Confirmed ] Carvedilol 12.5 mg [Coreg 12.5 mg] 25 mg PO BID 08/01/19 [History Confirmed 08/17/19] Chlorthalidone 25 mg PO DAILY 08/01/19 [History Confirmed 08/17/19] Cholecalciferol (Vitamin D3) [Vitamin D3] 1,000 unit PO DAILY 08/01/19 [History Confirmed 08/17/19] Clopidogrel Bisulfate 75 mg [PLAVIX 75 MG Tablet] 75 mg PO DAILY 08/01/19 [History Confirmed 08/17/19] Famotidine 20 mg [Pepcid 20 MG] 20 mg PO BID 08/01/19 [History Confirmed 08/17/19] Fluoxetine HCl 20 mg [Prozac 20 MG] 20 mg PO DAILY 08/01/19 [History Confirmed 08/17/19] Hydrocodone/Acetaminophen [[place] 7.5-325 Tablet] 1 each PO BID 08/01/19 [ History Confirmed 08/17/19] Losartan Potassium [Cozaar] 50 mg PO DAILY 08/01/19 [History Confirmed 08/17/19] Ropinirole 2Mg [Requip 2Mg Tab] 2 mg PO HS 08/01/19 [History Confirmed ] Donepezil HCl 10 mg [Aricept 10 MG] 10 mg PO DAILY 08/17/19 [History Confirmed 08/17/19] Allergies/Adverse Reactions: Allergies Allergy/AdvReac Type Severity Reaction Status Date / Time No Known Drug Allergies Allergy Verified 08/17/19 16:45 - Past Medical History Past Medical History: Yes Neurological History: TIA ENT History: Cataracts Cardiac History: Coronary Artery Disease Respiratory History: COPD, Sleep Apnea Endocrine Medical History: Diabetes Type II Musculoskelatal History: No Pertinent History GI Medical History: GERD History: Renal Disease Pyscho-Social History: No Pertinent History Male Reproductive Disorders: No Pertinent History Comment: exposed to agent orange in [place],UTI 07/2019 - Past Surgical History Past Surgical History: Yes (heart stint, abd hernia repair) Neuro Surgical History: No Pertinent History Cardiac History: Cardiac Catheterization Respiratory Surgery: No Pertinent History GI Surgical History: No Pertinent History Genitourinary Surgical Hx: No Pertinent History Musculskeletal Surgical Hx: No Pertinent History Male Surgical History: No Pertinent History Other Surgical History: lap choley - Social History Smoking Status: Current every day smoker How long have you smoked: 60 yrs Exposure to second hand smoke: Yes Alcohol: None Drug Use: none - Physical Exam Vital Signs: Vital Signs - 24 hr Temp Pulse Resp BP Pulse Ox 08/18/19 11:46 98.3 F 70 18 162/64 96 08/18/19 08:00 97.9 F 64 16 165/79 98 08/18/19 04:00 97.6 F 66 17 150/59 94 L 08/18/19 00:00 97.8 F 76 19 156/67 93 L 08/17/19 23:45 96 08/17/19 21:41 97.8 F 72 17 193/86 95 08/17/19 20:40 75 18 159/83 97 08/17/19 19:54 98 08/17/19 18:55 71 15 168/79 100 08/17/19 18:03 70 113/99 93 L 08/17/19 17:18 70 18 98 08/17/19 16:31 99.5 F 78 16 137/65 98 08/17/19 16:26 97 General Appearance: no apparent distress, alert Neurologic Exam: alert, oriented x 3, cooperative, normal mood/affect, nml cerebellar function, nml station & gait, sensation nml, No motor deficits Eye Exam: PERRL/EOMI, eyes nml inspection Ears, Nose, Throat Exam: normal ENT inspection, TMs normal, pharynx normal, moist mucous membranes Neck Exam: normal inspection, non-tender, supple, full range of motion Respiratory Exam: normal breath sounds, lungs clear, No respiratory distress Cardiovascular Exam: regular rate/rhythm, normal heart sounds, normal peripheral pulses Gastrointestinal/Abdomen Exam: soft, normal bowel sounds, No tenderness, No mass Back Exam: normal inspection, normal range of motion, No CVA tenderness, No vertebral tenderness Extremity Exam: normal inspection, normal range of motion, pelvis stable Skin Exam: normal color, warm, dry, No rash Lymphatic Exam: No adenopathy Results - Labs Lab/Micro Results: Accuchecks Date 08/18/19 Date 08/18/19 Time 11:32 Time 07:36 Accucheck Value: 185 Accucheck Value: 95 Lab Results-Last 24 Hours 08/17/19 08/17/19 08/17/19 Range/Units 16:50 16:50 17:02 WBC 13.6 H (4.0-10.5) K/mm3 RBC 4.54 (4.1-5.6) M/mm3 Hgb 13.3 (12.5-18.0) gm/dl Hct 40.8 L (42-50) % MCV 89.9 (78-100) fl MCH 29.3 (26-32) pg MCHC 32.6 (32-36) g/dl RDW 15.4 H (11.5-14.0) % Plt Count 455 H (150-450) K/mm3 MPV 9.2 (6-9.5) fl Gran % 55.7 (36.0-66.0) % Eos # (Auto) 1.98 H (0-0.5) Absolute Lymphs (auto) 2.62 (1.0-4.6) Absolute Monos (auto) 1.31 H (0.0-1.3) Lymphocytes % 19.3 L (24.0-44.0) % Monocytes % 9.7 (0.0-12.0) % Eosinophils % 14.6 H (0.00-5.0) % Basophils % 0.7 (0.0-0.4) % Absolute Granulocytes 7.56 H (1.4-6.9) Basophils # 0.09 (0-0.4) PT (8.83-12.87) SECONDS INR (0.8-3.0) APTT (24.1-36.1) SECONDS pO2/FiO2 Ratio 21.0 % VBG pH 7.41 (7.32-7.42) VBG pCO2 at Pat Temp 48 (42-55) mm/Hg VBG pO2 at Pat Temp 49 H (25-40) mm/Hg VBG HCO3 30.4 H* (22-28) meq/L VBG O2 Sat ([place]) 88.9 L (95-100) VBG Base Excess 4.7 H (-2.0-2.0) VBG Hemoglobin 14.2 VBG Carboxyhemoglobin 5.9 (0.0-6.9) % T HGB POC Potassium 3.6 (3.5-5.1) Sodium (137-145) mmol/L Potassium (3.5-5.1) mmol/L Chloride (98-107) mmol/L Carbon Dioxide (22-30) mmol/L Anion Gap (5-15) MEQ/L BUN (9-20) mg/dL Creatinine (0.66-1.25) mg/dL Estimated GFR ML/MIN Glucose (74-106) mg/dL Lactic Acid 3.8 H (0.4-2.0) Calcium (8.4-10.2) mg/dL Magnesium (1.6-2.3) mg/dL Total Bilirubin (0.2-1.3) mg/dL AST (17-59) U/L ALT (0-50) U/L Alkaline Phosphatase (38-126) U/L Troponin I (0.000-0.034) ng/mL Serum Total Protein (6.3-8.2) g/dL Albumin (3.5-5.0) g/dL Amylase (30-110) U/L Lipase (23-300) U/L Urine Color (YELLOW) Urine Appearance (CLEAR) Urine pH (5-6) Ur Specific [place] (1.005-1.025) Urine Protein (Negative) Urine Ketones (NEGATIVE) Urine Blood (0-5) Jamin/ul Urine Nitrite (NEGATIVE) Urine Bilirubin (NEGATIVE) Urine Urobilinogen (0-1) mg/dL Ur Leukocyte Esterase (NEGATIVE) Urine WBC (Auto) (0-5) /HPF Urine RBC (Auto) (0-2) /HPF U Hyaline Cast (Auto) (0-2) /LPF U Epithel Cells (Auto) (FEW) /HPF Urine Bacteria (Auto) (NEGATIVE) /HPF Urine Culture Reflexed (NO) Urine Glucose (NEGATIVE) mg/dL Urine Opiates Level (NEGATIVE) Ur Methadone (NEGATIVE) Urine Barbiturates (NEGATIVE) Ur Phencyclidine (PCP) (NEGATIVE) Urine Amphetamine (NEGATIVE) U Benzodiazepine Level (NEGATIVE) Urine Cocaine (NEGATIVE) Urine Marijuana (THC) (NEGATIVE) Ethyl Alcohol (0-10) mg/dL 08/17/19 08/17/19 08/17/19 Range/Units 17:02 17:02 17:02 WBC (4.0-10.5) K/mm3 RBC (4.1-5.6) M/mm3 Hgb (12.5-18.0) gm/dl Hct (42-50) % MCV (78-100) fl MCH (26-32) pg MCHC (32-36) g/dl RDW (11.5-14.0) % Plt Count (150-450) K/mm3 MPV (6-9.5) fl Gran % (36.0-66.0) % Eos # (Auto) (0-0.5) Absolute Lymphs (auto) (1.0-4.6) Absolute Monos (auto) (0.0-1.3) Lymphocytes % (24.0-44.0) % Monocytes % (0.0-12.0) % Eosinophils % (0.00-5.0) % Basophils % (0.0-0.4) % Absolute Granulocytes (1.4-6.9) Basophils # (0-0.4) PT 13.6 H (8.83-12.87) SECONDS INR 1.20 (0.8-3.0) APTT 31.1 (24.1-36.1) SECONDS pO2/FiO2 Ratio % VBG pH (7.32-7.42) VBG pCO2 at Pat Temp (42-55) mm/Hg VBG pO2 at Pat Temp (25-40) mm/Hg VBG HCO3 (22-28) meq/L VBG O2 Sat ([place]) (95-100) VBG Base Excess (-2.0-2.0) VBG Hemoglobin VBG Carboxyhemoglobin (0.0-6.9) % T HGB POC Potassium (3.5-5.1) Sodium 143 (137-145) mmol/L Potassium 3.5 (3.5-5.1) mmol/L Chloride 98 (98-107) mmol/L Carbon Dioxide 29 (22-30) mmol/L Anion Gap 19.6 H (5-15) MEQ/L BUN 41 H (9-20) mg/dL Creatinine 3.31 H (0.66-1.25) mg/dL Estimated GFR 19.6 ML/MIN Glucose 136 H (74-106) mg/dL Lactic Acid (0.4-2.0) Calcium 9.6 (8.4-10.2) mg/dL Magnesium 2.2 (1.6-2.3) mg/dL Total Bilirubin 0.40 (0.2-1.3) mg/dL AST 35 (17-59) U/L ALT 24 (0-50) U/L Alkaline Phosphatase 46 (38-126) U/L Troponin I < 0.012 (0.000-0.034) ng/mL Serum Total Protein 7.5 (6.3-8.2) g/dL Albumin 4.3 (3.5-5.0) g/dL Amylase 102 (30-110) U/L Lipase 69 (23-300) U/L Urine Color (YELLOW) Urine Appearance (CLEAR) Urine pH (5-6) Ur Specific [place] (1.005-1.025) Urine Protein (Negative) Urine Ketones (NEGATIVE) Urine Blood (0-5) Jamin/ul Urine Nitrite (NEGATIVE) Urine Bilirubin (NEGATIVE) Urine Urobilinogen (0-1) mg/dL Ur Leukocyte Esterase (NEGATIVE) Urine WBC (Auto) (0-5) /HPF Urine RBC (Auto) (0-2) /HPF U Hyaline Cast (Auto) (0-2) /LPF U Epithel Cells (Auto) (FEW) /HPF Urine Bacteria (Auto) (NEGATIVE) /HPF Urine Culture Reflexed (NO) Urine Glucose (NEGATIVE) mg/dL Urine Opiates Level (NEGATIVE) Ur Methadone (NEGATIVE) Urine Barbiturates (NEGATIVE) Ur Phencyclidine (PCP) (NEGATIVE) Urine Amphetamine (NEGATIVE) U Benzodiazepine Level (NEGATIVE) Urine Cocaine (NEGATIVE) Urine Marijuana (THC) (NEGATIVE) Ethyl Alcohol < 10 (0-10) mg/dL 08/17/19 08/17/19 08/17/19 Range/Units 18:55 18:55 20:25 WBC (4.0-10.5) K/mm3 RBC (4.1-5.6) M/mm3 Hgb (12.5-18.0) gm/dl Hct (42-50) % MCV (78-100) fl MCH (26-32) pg MCHC (32-36) g/dl RDW (11.5-14.0) % Plt Count (150-450) K/mm3 MPV (6-9.5) fl Gran % (36.0-66.0) % Eos # (Auto) (0-0.5) Absolute Lymphs (auto) (1.0-4.6) Absolute Monos (auto) (0.0-1.3) Lymphocytes % (24.0-44.0) % Monocytes % (0.0-12.0) % Eosinophils % (0.00-5.0) % Basophils % (0.0-0.4) % Absolute Granulocytes (1.4-6.9) Basophils # (0-0.4) PT (8.83-12.87) SECONDS INR (0.8-3.0) APTT (24.1-36.1) SECONDS pO2/FiO2 Ratio % VBG pH (7.32-7.42) VBG pCO2 at Pat Temp (42-55) mm/Hg VBG pO2 at Pat Temp (25-40) mm/Hg VBG HCO3 (22-28) meq/L VBG O2 Sat ([place]) (95-100) VBG Base Excess (-2.0-2.0) VBG Hemoglobin VBG Carboxyhemoglobin (0.0-6.9) % T HGB POC Potassium (3.5-5.1) Sodium (137-145) mmol/L Potassium (3.5-5.1) mmol/L Chloride (98-107) mmol/L Carbon Dioxide (22-30) mmol/L Anion Gap (5-15) MEQ/L BUN (9-20) mg/dL Creatinine (0.66-1.25) mg/dL Estimated GFR ML/MIN Glucose (74-106) mg/dL Lactic Acid (0.4-2.0) Calcium (8.4-10.2) mg/dL Magnesium (1.6-2.3) mg/dL Total Bilirubin (0.2-1.3) mg/dL AST (17-59) U/L ALT (0-50) U/L Alkaline Phosphatase (38-126) U/L Troponin I < 0.012 (0.000-0.034) ng/mL Serum Total Protein (6.3-8.2) g/dL Albumin (3.5-5.0) g/dL Amylase (30-110) U/L Lipase (23-300) U/L Urine Color YELLOW (YELLOW) Urine Appearance SLIGHTLY CLOUDY (CLEAR) Urine pH 7.0 (5-6) Ur Specific [place] 1.016 (1.005-1.025) Urine Protein 100 (Negative) Urine Ketones NEGATIVE (NEGATIVE) Urine Blood NEGATIVE (0-5) Jamin/ul Urine Nitrite NEGATIVE (NEGATIVE) Urine Bilirubin NEGATIVE (NEGATIVE) Urine Urobilinogen NEGATIVE (0-1) mg/dL Ur Leukocyte Esterase NEGATIVE (NEGATIVE) Urine WBC (Auto) NONE (0-5) /HPF Urine RBC (Auto) NONE (0-2) /HPF U Hyaline Cast (Auto) 0-2 (0-2) /LPF U Epithel Cells (Auto) NONE (FEW) /HPF Urine Bacteria (Auto) NONE (NEGATIVE) /HPF Urine Culture Reflexed NO (NO) Urine Glucose NEGATIVE (NEGATIVE) mg/dL Urine Opiates Level POSITIVE (NEGATIVE) Ur Methadone NEGATIVE (NEGATIVE) Urine Barbiturates NEGATIVE (NEGATIVE) Ur Phencyclidine (PCP) NEGATIVE (NEGATIVE) Urine Amphetamine NEGATIVE (NEGATIVE) U Benzodiazepine Level NEGATIVE (NEGATIVE) Urine Cocaine NEGATIVE (NEGATIVE) Urine Marijuana (THC) NEGATIVE (NEGATIVE) Ethyl Alcohol (0-10) mg/dL 08/17/19 08/17/19 08/18/19 Range/Units 20:30 23:10 02:00 WBC (4.0-10.5) K/mm3 RBC (4.1-5.6) M/mm3 Hgb (12.5-18.0) gm/dl Hct (42-50) % MCV (78-100) fl MCH (26-32) pg MCHC (32-36) g/dl RDW (11.5-14.0) % Plt Count (150-450) K/mm3 MPV (6-9.5) fl Gran % (36.0-66.0) % Eos # (Auto) (0-0.5) Absolute Lymphs (auto) (1.0-4.6) Absolute Monos (auto) (0.0-1.3) Lymphocytes % (24.0-44.0) % Monocytes % (0.0-12.0) % Eosinophils % (0.00-5.0) % Basophils % (0.0-0.4) % Absolute Granulocytes (1.4-6.9) Basophils # (0-0.4) PT (8.83-12.87) SECONDS INR (0.8-3.0) APTT (24.1-36.1) SECONDS pO2/FiO2 Ratio % VBG pH (7.32-7.42) VBG pCO2 at Pat Temp (42-55) mm/Hg VBG pO2 at Pat Temp (25-40) mm/Hg VBG HCO3 (22-28) meq/L VBG O2 Sat ([place]) (95-100) VBG Base Excess (-2.0-2.0) VBG Hemoglobin VBG Carboxyhemoglobin (0.0-6.9) % T HGB POC Potassium (3.5-5.1) Sodium (137-145) mmol/L Potassium (3.5-5.1) mmol/L Chloride (98-107) mmol/L Carbon Dioxide (22-30) mmol/L Anion Gap (5-15) MEQ/L BUN (9-20) mg/dL Creatinine (0.66-1.25) mg/dL Estimated GFR ML/MIN Glucose (74-106) mg/dL Lactic Acid 1.2 (0.4-2.0) Calcium (8.4-10.2) mg/dL Magnesium (1.6-2.3) mg/dL Total Bilirubin (0.2-1.3) mg/dL AST (17-59) U/L ALT (0-50) U/L Alkaline Phosphatase (38-126) U/L Troponin I < 0.012 < 0.012 (0.000-0.034) ng/mL Serum Total Protein (6.3-8.2) g/dL Albumin (3.5-5.0) g/dL Amylase (30-110) U/L Lipase (23-300) U/L Urine Color (YELLOW) Urine Appearance (CLEAR) Urine pH (5-6) Ur Specific [place] (1.005-1.025) Urine Protein (Negative) Urine Ketones (NEGATIVE) Urine Blood (0-5) Jamin/ul Urine Nitrite (NEGATIVE) Urine Bilirubin (NEGATIVE) Urine Urobilinogen (0-1) mg/dL Ur Leukocyte Esterase (NEGATIVE) Urine WBC (Auto) (0-5) /HPF Urine RBC (Auto) (0-2) /HPF U Hyaline Cast (Auto) (0-2) /LPF U Epithel Cells (Auto) (FEW) /HPF Urine Bacteria (Auto) (NEGATIVE) /HPF Urine Culture Reflexed (NO) Urine Glucose (NEGATIVE) mg/dL Urine Opiates Level (NEGATIVE) Ur Methadone (NEGATIVE) Urine Barbiturates (NEGATIVE) Ur Phencyclidine (PCP) (NEGATIVE) Urine Amphetamine (NEGATIVE) U Benzodiazepine Level (NEGATIVE) Urine Cocaine (NEGATIVE) Urine Marijuana (THC) (NEGATIVE) Ethyl Alcohol (0-10) mg/dL 08/18/19 08/18/19 08/18/19 Range/Units 04:15 04:15 04:15 WBC 11.2 H (4.0-10.5) K/mm3 RBC 3.82 L (4.1-5.6) M/mm3 Hgb 11.4 L (12.5-18.0) gm/dl Hct 34.7 L (42-50) % MCV 90.8 (78-100) fl MCH 29.8 (26-32) pg MCHC 32.9 (32-36) g/dl RDW 15.2 H (11.5-14.0) % Plt Count 378 (150-450) K/mm3 MPV 9.3 (6-9.5) fl Gran % 46.3 (36.0-66.0) % Eos # (Auto) 1.93 H (0-0.5) Absolute Lymphs (auto) 2.58 (1.0-4.6) Absolute Monos (auto) 1.44 H (0.0-1.3) Lymphocytes % 23.0 L (24.0-44.0) % Monocytes % 12.8 H (0.0-12.0) % Eosinophils % 17.2 H (0.00-5.0) % Basophils % 0.7 (0.0-0.4) % Absolute Granulocytes 5.21 (1.4-6.9) Basophils # 0.08 (0-0.4) PT (8.83-12.87) SECONDS INR (0.8-3.0) APTT (24.1-36.1) SECONDS pO2/FiO2 Ratio % VBG pH (7.32-7.42) VBG pCO2 at Pat Temp (42-55) mm/Hg VBG pO2 at Pat Temp (25-40) mm/Hg VBG HCO3 (22-28) meq/L VBG O2 Sat ([place]) (95-100) VBG Base Excess (-2.0-2.0) VBG Hemoglobin VBG Carboxyhemoglobin (0.0-6.9) % T HGB POC Potassium (3.5-5.1) Sodium 143 (137-145) mmol/L Potassium 3.3 L (3.5-5.1) mmol/L Chloride 106 (98-107) mmol/L Carbon Dioxide 28 (22-30) mmol/L Anion Gap 12.1 (5-15) MEQ/L BUN 36 H (9-20) mg/dL Creatinine 2.74 H (0.66-1.25) mg/dL Estimated GFR 24.4 ML/MIN Glucose 95 (74-106) mg/dL Lactic Acid (0.4-2.0) Calcium 8.6 (8.4-10.2) mg/dL Magnesium (1.6-2.3) mg/dL Total Bilirubin (0.2-1.3) mg/dL AST (17-59) U/L ALT (0-50) U/L Alkaline Phosphatase (38-126) U/L Troponin I < 0.012 (0.000-0.034) ng/mL Serum Total Protein (6.3-8.2) g/dL Albumin (3.5-5.0) g/dL Amylase (30-110) U/L Lipase (23-300) U/L Urine Color (YELLOW) Urine Appearance (CLEAR) Urine pH (5-6) Ur Specific [place] (1.005-1.025) Urine Protein (Negative) Urine Ketones (NEGATIVE) Urine Blood (0-5) Jamin/ul Urine Nitrite (NEGATIVE) Urine Bilirubin (NEGATIVE) Urine Urobilinogen (0-1) mg/dL Ur Leukocyte Esterase (NEGATIVE) Urine WBC (Auto) (0-5) /HPF Urine RBC (Auto) (0-2) /HPF U Hyaline Cast (Auto) (0-2) /LPF U Epithel Cells (Auto) (FEW) /HPF Urine Bacteria (Auto) (NEGATIVE) /HPF Urine Culture Reflexed (NO) Urine Glucose (NEGATIVE) mg/dL Urine Opiates Level (NEGATIVE) Ur Methadone (NEGATIVE) Urine Barbiturates (NEGATIVE) Ur Phencyclidine (PCP) (NEGATIVE) Urine Amphetamine (NEGATIVE) U Benzodiazepine Level (NEGATIVE) Urine Cocaine (NEGATIVE) Urine Marijuana (THC) (NEGATIVE) Ethyl Alcohol (0-10) mg/dL Accuchecks Date 08/18/19 Date 08/18/19 Time 11:32 Time 07:36 Accucheck Value: 185 Accucheck Value: 95 - Radiology Impressions Radiology Exams & Impressions: Radiology Procedures Category Date Time Status ABDOMEN AND PELVIS W/0 CONTRAS [CT] Stat Exams 08/17/19 16:51 Completed CHEST 1 VIEW (PORTABLE) Routine Exams 08/18/19 08:00 Completed CHEST 1 VIEW (PORTABLE) Stat Exams 08/17/19 16:47 Completed HEAD WITHOUT CONTRAST [CT] Stat Exams 08/17/19 16:48 Completed - Other Procedures and Tests Respiratory Therapy 08/17/19 21:07 EKG PRN 08/17/19 23:52 BiPap/CPAP ROUTINE Assessment/Plan (1) Acute renal insufficiency Current Visit: Yes Status: Acute Assessment & Plan: continue IV fluids Code(s): N28.9 - DISORDER OF KIDNEY AND URETER, UNSPECIFIED (2) Hypertension Current Visit: Yes Status: Acute Qualifiers: Hypertension type: unspecified Qualified Code(s): I10 - Essential (primary ) hypertension Code(s): I10 - ESSENTIAL (PRIMARY) HYPERTENSION (3) Nausea and vomiting Current Visit: Yes Status: Acute Qualifiers: Vomiting type: unspecified Vomiting Intractability: unspecified Qualified Code(s): R11.2 - Nausea with vomiting, unspecified Code(s): R11.2 - NAUSEA WITH VOMITING, UNSPECIFIED (4) Bladder cancer Current Visit: No Status: Acute (5) Pyelonephritis Current Visit: No Status: Resolved Code(s): N12 - TUBULO-INTERSTITIAL NEPHRITIS, NOT SPCF ACUTE OR CHRONIC (6) Diverticulitis Current Visit: Yes Status: Acute Code(s): K57.92 - DVTRCLI OF INTEST, PART UNSP, W/O PERF OR ABSCESS W/O BLEED
[2019-08-18] MEDS: FLAGYL 500 MG IVPB 500 MG/100 ML BAG IV SCH ×2 (13:14→21:07)
[2019-08-18] MEDS: Prozac 20 MG PO SCH (14:38)
[2019-08-18] MEDS: Januvia 50 MG PO SCH (14:38)
[2019-08-18] MEDS: VITAMIN D PO SCH (14:38)
[2019-08-18] MEDS: PLAVIX 75 MG Tablet PO SCH (14:38)
[2019-08-18] MEDS: Aricept 10 MG PO SCH (14:38)
[2019-08-18] MEDS ORDERED: MEDICATION INTERVENTION PO SCH (14:45)
[2019-08-18] MEDS: Wellbutrin XL 150 MG PO SCH (14:45)
[2019-08-18] MEDS: Cozaar 50 MG PO SCH (14:46)
[2019-08-18] MEDS: NORVASC 5 MG PO SCH (14:46)
[2019-08-18] MEDS: ZOCOR 20MG PO SCH (14:46)
[2019-08-18] MEDS: REQUIP 2MG TAB PO SCH (21:12)
[2019-08-19 05:53] LABS: Hematocrit 36.6 % (42-50); Hemoglobin 11.9 gm/dl (12.5-18.0); Mean Corpuscular Hemoglobin 29.6 pg (26-32); Mean Corpuscular Hgb Concent. 32.5 g/dl (32-36); Mean Platelet Volume 9.6 fl (6-9.5); Platelet Count 393 K/mm3 (150-450); Red Blood Count 4.02 M/mm3 (4.1-5.6); Red Cell Distribution Width 15.2 % (11.5-14.0); White Blood Count 12.7 K/mm3 (4.0-10.5)
[2019-08-19] MEDS: FLAGYL 500 MG IVPB 500 MG/100 ML BAG IV SCH (06:02)
[2019-08-19 06:16] LABS: ALBUMIN 3.4 g/dL (3.5-5.0); ANION GAP 12.6 MEQ/L (5-15); BILIRUBIN,TOTAL 0.3 mg/dL (0.2-1.3); Calcium 9.2 mg/dL (8.4-10.2); Creatinine 1 2.18 mg/dL (0.66-1.25); Potassium 3.2 mmol/L (3.5-5.1); Total Protein 6.3 g/dL (6.3-8.2)
[2019-08-19] MEDS: COREG 12.5 MG PO SCH (08:24)
[2019-08-19] MEDS: ZOCOR 20MG PO SCH (08:24)
[2019-08-19] MEDS: NORVASC 5 MG PO SCH (08:24)
[2019-08-19] MEDS: PLAVIX 75 MG Tablet PO SCH (08:24)
[2019-08-19] MEDS: Pepcid 20 MG PO SCH (08:24)
[2019-08-19] MEDS: ECOTRIN 81 MG PO SCH (08:25)
[2019-08-19] MEDS: VITAMIN D PO SCH (08:25)
[2019-08-19] MEDS: Cozaar 50 MG PO SCH (08:25)
[2019-08-19] MEDS: Wellbutrin XL 150 MG PO SCH (08:25)
[2019-08-19] MEDS: ENOXAPARIN SODIUM SQ SCH (08:25)
[2019-08-19] MEDS: Prozac 20 MG PO SCH (08:25)
[2019-08-19] MEDS: NORCO 7.5/325 MG TAB PO SCH ×2 (08:25→09:48)
[2019-08-19] MEDS: Aricept 10 MG PO SCH (08:25)
[2019-08-19] MEDS: Januvia 50 MG PO SCH (08:25)
[2019-08-19] MEDS ORDERED: NON-FORMULARY ITEM (Losartan Potassium [Cozaar] 50 MG) PO SCH (10:00)
[2019-08-19] MEDS ORDERED: NON-FORMULARY ITEM PO SCH (10:00)
[2019-08-19] MEDS ORDERED: NON-FORMULARY ITEM (Alogliptin Benzoate [Alogliptin] 12.5 MG) PO SCH (10:00)
[2019-08-19] MEDS ORDERED: NON-FORMULARY ITEM (Chlorthalidone [Chlorthalidone] 25 MG) PO SCH (10:00)
[2019-08-19] MEDS ORDERED: NON-FORMULARY ITEM (Atorvastatin Calcium [Atorvastatin Calcium] 80 MG) PO SCH (10:00)
[2019-08-19] MEDS ORDERED: BUPROPION HCL 300 MG PO SCH (10:00)
[2019-08-19] MEDS: Sodium Chloride 0.9% 1000 ML 1,000 ML IV SCH (11:15)
[2019-08-19 12:01] VITALS: BP 181/81; PULSE 62; O2SAT 92
--- NOTE | 2019-08-19 12:18 | PCM.DS ---
Discharge Summary Date of Admission: 08/17/19 21:06 Admitting Physician: ANGELIQUE JARVIS Primary Care Provider: ANGELIQUE JARVIS Allergies Allergies No Known Drug Allergies Allergy (Verified 08/17/19 16:45) Hospital Summary - Hospital Course Hospital Course: Chief Complaint Diagnosis nausea and vomiting for 2 weeks Allergies Allergy/AdvReac Type Severity Reaction Status Date / Time No Known Drug Allergies Allergy Verified 08/17/19 16:45 Vital Signs (Last 24 hours) Temp Pulse Resp BP Pulse Ox 08/19/19 12:00 98.2 F 62 18 181/81 92 L 08/19/19 07:49 98.3 F 77 18 170/74 94 L 08/19/19 07:35 18 08/19/19 04:00 97.7 F 69 18 170/77 94 L 08/19/19 00:00 98.0 F 69 18 155/72 93 L 08/18/19 20:00 98.2 F 75 19 174/81 96 08/18/19 16:00 98.8 F 73 19 168/72 93 L Home Medications Medication Instructions Recorded Confirmed Last Taken Type Donepezil HCl 10 mg [Aricept 10 10 mg PO DAILY 08/17/19 08/17/19 08/17/19 History MG] Current Medications Generic Name Dose Route Start Last Admin Trade Name Freq PRN Reason Stop Dose Admin Acetaminophen 325 mg 08/17/19 21:07 Tylenol 325 Mg PO 09/16/19 21:06 Q4H PRN PRN PAIN, FEVER, HEADACHE Hydrocodone Bitart/Acetaminophen 1 tab 08/17/19 23:00 08/19/19 09:48 [place] 7.5/325 Mg Tab PO 08/22/19 22:59 Not Given BID FLAVIO Amlodipine Besylate 10 mg 08/18/19 15:00 08/19/19 08:24 Norvasc 5 Mg PO 09/17/19 14:59 10 mg DAILY FLAVIO Administration Aspirin 81 mg 08/17/19 23:00 08/19/19 08:25 Ecotrin 81 Mg PO 09/16/19 22:59 81 mg BID FLAVIO Administration Bupropion HCl 300 mg 08/18/19 15:00 08/19/19 08:25 Wellbutrin Xl 150 Mg PO 09/17/19 14:59 300 mg DAILY FLAVIO Administration Carvedilol 25 mg 08/17/19 23:00 08/19/19 08:24 Coreg 12.5 Mg PO 09/16/19 22:59 25 mg BID FLAVIO Administration Cholecalciferol 1,000 unit 08/18/19 15:00 08/19/19 08:25 Vitamin D PO 09/17/19 14:59 1,000 unit DAILY FLAVIO Administration Clopidogrel Bisulfate 75 mg 08/18/19 15:00 08/19/19 08:24 Plavix 75 Mg Tablet PO 09/17/19 14:59 75 mg DAILY FLAVIO Administration Donepezil HCl 10 mg 08/18/19 15:00 08/19/19 08:25 Aricept 10 Mg PO 09/17/19 14:59 10 mg DAILY FLAVIO Administration Enoxaparin Sodium 30 mg 08/18/19 10:00 08/19/19 08:25 Enoxaparin Sodium SQ 09/17/19 09:59 30 mg DAILY FLAVIO Administration Famotidine 20 mg 08/17/19 22:00 08/19/19 08:24 Pepcid 20 Mg PO 09/16/19 21:59 20 mg BID FLAVIO Administration Fluoxetine HCl 20 mg 08/18/19 15:00 08/19/19 08:25 Prozac 20 Mg PO 09/17/19 14:59 20 mg DAILY FLAVIO Administration Sodium Chloride 1,000 mls @ 100 mls/hr 08/17/19 21:07 08/19/19 11:15 Sodium Chloride 0.9% 1000 Ml IV 09/16/19 21:06 Not Given .Q10H FLAVIO Metronidazole 500 mg in 100 mls @ 200 mls/hr 08/18/19 14:00 08/19/19 06:02 Flagyl 500 Mg Ivpb IV 09/17/19 13:59 200 mls/hr Q8HT FLAVIO Administration Insulin Aspart 0 unit 08/17/19 23:52 Novolog Insulin SQ 09/16/19 23:51 UD PRN HYPERGLYCEMIA Losartan Potassium 50 mg 08/18/19 15:00 08/19/19 08:25 Cozaar 50 Mg PO 09/17/19 14:59 50 mg DAILY FLAVIO Administration Ondansetron HCl 4 mg 08/17/19 21:07 08/19/19 10:52 Zofran 4 Mg/2 Ml Vial IV 09/16/19 21:06 4 mg Q8H PRN PRN Administration NAUSEA/VOMITING Chlorthalidone 25mg 1 each 08/20/19 10:00 Tablet PO 09/19/19 09:59 DAILY FLAVIO Ropinirole HCl 2 mg 08/17/19 23:00 08/18/19 21:12 Requip 2mg Tab PO 09/16/19 22:59 2 mg HS FLAVIO Administration Simvastatin 80 mg 08/18/19 15:00 08/19/19 08:24 Zocor 20mg PO 09/17/19 14:59 80 mg DAILY FLAVIO Administration Sitagliptin Phosphate 50 mg 08/18/19 15:00 08/19/19 08:25 Januvia 50 Mg PO 09/17/19 14:59 50 mg DAILY FLAVIO Administration Discontinued Medications Generic Name Dose Route Start Last Admin Trade Name Freq PRN Reason Stop Dose Admin Sodium Chloride 1,000 mls @ 999 mls/hr 08/17/19 16:46 08/17/19 18:34 Sodium Chloride 0.9% 1000 Ml IV 08/17/19 17:46 Infused .Q1H1M STA Infusion Sodium Chloride Confirm 08/17/19 17:00 Sodium Chloride 0.9% 1000 Ml Administered 08/17/19 17:01 Dose 1,000 mls @ ud .ROUTE .STK-MED ONE Sodium Chloride 1,000 mls @ 999 mls/hr 08/17/19 18:22 08/17/19 21:07 Sodium Chloride 0.9% 1000 Ml IV 08/17/19 19:22 Infused .Q1H1M STA Infusion Sodium Chloride Confirm 08/17/19 18:37 Sodium Chloride 0.9% 1000 Ml Administered 08/17/19 18:38 Dose 1,000 mls @ ud .ROUTE .STK-MED ONE Miscellaneous Information 1 each 08/18/19 14:45 Medication Intervention PO 09/17/19 14:44 .RN TO CHECK ON FLAVIO Non-Formulary Medication 1 each 08/19/19 10:00 08/19/19 08:31 Non-Formulary Item PO 09/18/19 09:59 1 each DAILY FLAVIO Administration Intake & Output (Last 24 hours) 08/17/19 08/18/19 08/19/19 08/20/19 11:59 11:59 11:59 11:59 Intake Total 8589 5523 Output Total 8368 Balance 317 5548 Weight 75.1 kg 78.5 kg Microbiology Results (Last 24 hours) 08/17/19 17:04 Blood Blood Culture Gram Stain - Pending 08/17/19 17:04 Blood Blood Culture - Preliminary NO GROWTH TO DATE 08/17/19 17:02 Blood Blood Culture Gram Stain - Pending 08/17/19 17:02 Blood Blood Culture - Preliminary NO GROWTH TO DATE Laboratory Results (Last 24 hours) 08/19/19 08/19/19 08/19/19 05:00 04:00 04:00 WBC 12.7 H RBC 4.02 L Hgb 11.9 L Hct 36.6 L MCV 91.0 MCH 29.6 MCHC 32.5 RDW 15.2 H Plt Count 393 MPV 9.6 H Sodium 141 Potassium 3.2 L Chloride 106 Carbon Dioxide 25 Anion Gap 12.6 BUN 31 H Creatinine 2.18 H Estimated GFR 31.8 Glucose 126 H Lactic Acid 1.2 Calcium 9.2 Total Bilirubin 0.30 AST 18 ALT 17 Alkaline Phosphatase 37 L Serum Total Protein 6.3 Albumin 3.4 L Orders (Last 24 hours) Category Date Time Status CBC AM.LAB Lab 08/19/19 04:00 Completed CMP AM.LAB Lab 08/19/19 04:00 Completed Lactic Acid AM.LAB Lab 08/19/19 05:00 Completed Amlodipine Besylate 5 mg [Norvasc 5 mg] Med 08/18/19 15:00 Active 10 mg PO DAILY Bupropion HCl Xl 150 mg [Wellbutrin XL 150 MG] Med 08/18/19 15:00 Active 300 mg PO DAILY Cholecalciferol (Vitamin D3) [Vitamin D] Med 08/18/19 15:00 Active 1,000 unit PO DAILY Clopidogrel Bisulfate 75 mg [PLAVIX 75 MG Tablet] Med 08/18/19 15:00 Active 75 mg PO DAILY Donepezil HCl 10 mg [Aricept 10 MG] Med 08/18/19 15:00 Active 10 mg PO DAILY Fluoxetine HCl 20 mg [Prozac 20 MG] Med 08/18/19 15:00 Active 20 mg PO DAILY Losartan Potassium 50 mg [Cozaar 50 MG] Med 08/18/19 15:00 Active 50 mg PO DAILY Medication Intervention Med 08/18/19 14:45 Discontinued 1 each PO .RN TO CHECK ON Metronidazole 500 mg Premix [Flagyl 500 mg Ivpb] Med 08/18/19 14:00 Active 500 mg in 100 ml IV Q8HT Non-Formulary Drug [Non-Formulary Item] Med 08/19/19 10:00 Discontinued 1 each PO DAILY Patient Own Med [Patient Own Medication] Med 08/20/19 10:00 Active 1 each PO DAILY Simvastatin 20Mg [Zocor 20Mg] Med 08/18/19 15:00 Active 80 mg PO DAILY Sitagliptin Phosphate 50 MG [Januvia 50 MG] Med 08/18/19 15:00 Active 50 mg PO DAILY Patient Care Notes (Last 24 hours) 08/18/19 15:16 Nursing Note by Joan Amaral pt's plans to bring pt's Chlorthalidone in from home tonight. Initialized on 08/18/19 15:16 - END OF NOTE 08/18/19 12:35 (created 08/18/19 13:00) Case Management Note by Luz Mata DR. ROUNDED AND EVALUATED, DISCUSSED TREATMENT AND PLAN OF CARE, VERBALIZED UNDERSTANDING, AND ABLE TO REPEAT INFORMATION. SIGNIFICANT OTHER AT BEDSIDE. WILL PLAN TO RETURN HOME WITH SIGNIFICANT OTHER, HAVE PHYSICAL THERAPY OUTPATIENT, SIG OTHER REFUSED ANY [facility]. Initialized on 08/18/19 13:00 - END OF NOTE - Vitals & Intake/Output Vital Signs: Vital Signs Temperature 98.2 F 08/19/19 12:00 Pulse Rate 62 08/19/19 12:00 Respiratory Rate 18 08/19/19 12:00 Blood Pressure 181/81 08/19/19 12:00 O2 Sat by Pulse Oximetry 92 L 08/19/19 12:00 Intake & Output: Intake & Output 08/17/19 08/18/19 08/19/19 08/20/19 11:59 11:59 11:59 11:59 Intake Total 2397 5533 Output Total 1700 Balance 697 5533 Weight 75.1 kg 78.5 kg - Lab Result Diagrams: 08/19/19 04:00 08/19/19 04:00 Lab Results-Last 24 Hrs: Accuchecks Date 08/19/19 Date 08/19/19 Date 08/18/19 Time 12:11 Time 07:41 Time 16:42 Accucheck Value: 113 Accucheck Value: 126 Accucheck Value: 155 Accucheck Value: 105 Lab Results-Last 24 Hours 08/19/19 08/19/19 08/19/19 Range/Units 04:00 04:00 05:00 WBC 12.7 H (4.0-10.5) K/mm3 RBC 4.02 L (4.1-5.6) M/mm3 Hgb 11.9 L (12.5-18.0) gm/dl Hct 36.6 L (42-50) % MCV 91.0 (78-100) fl MCH 29.6 (26-32) pg MCHC 32.5 (32-36) g/dl RDW 15.2 H (11.5-14.0) % Plt Count 393 (150-450) K/mm3 MPV 9.6 H (6-9.5) fl Sodium 141 (137-145) mmol/L Potassium 3.2 L (3.5-5.1) mmol/L Chloride 106 (98-107) mmol/L Carbon Dioxide 25 (22-30) mmol/L Anion Gap 12.6 (5-15) MEQ/L BUN 31 H (9-20) mg/dL Creatinine 2.18 H (0.66-1.25) mg/dL Estimated GFR 31.8 ML/MIN Glucose 126 H (74-106) mg/dL Lactic Acid 1.2 (0.4-2.0) Calcium 9.2 (8.4-10.2) mg/dL Total Bilirubin 0.30 (0.2-1.3) mg/dL AST 18 (17-59) U/L ALT 17 (0-50) U/L Alkaline Phosphatase 37 L (38-126) U/L Serum Total Protein 6.3 (6.3-8.2) g/dL Albumin 3.4 L (3.5-5.0) g/dL Micro Results-Entire Visit: Microbiology 08/17/19 17:04 Blood Culture - Preliminary Blood NO GROWTH TO DATE 08/17/19 17:02 Blood Culture - Preliminary Blood NO GROWTH TO DATE Accuchecks Date 08/19/19 Date 08/19/19 Date 08/18/19 Time 12:11 Time 07:41 Time 16:42 Accucheck Value: 113 Accucheck Value: 126 Accucheck Value: 155 Accucheck Value: 105 - Radiology Exams Ordered Rad Exams-Entire Visit: Radiology Procedures Category Date Time Status ABDOMEN AND PELVIS W/0 CONTRAS [CT] Stat Exams 08/17/19 16:51 Completed CHEST 1 VIEW (PORTABLE) Routine Exams 08/18/19 08:00 Completed CHEST 1 VIEW (PORTABLE) Stat Exams 08/17/19 16:47 Completed HEAD WITHOUT CONTRAST [CT] Stat Exams 08/17/19 16:48 Completed - Procedures and Test Procedures and Tests throughout Hospitalization: Therapy Orders & Screens 08/17/19 21:07 EKG PRN Comment: 08/17/19 22:07 OT Screen per Nursing Assess ONCE Comment: Protocol Order Physician Instructions: Greater than 3 points order OT Admission Screening Reason For Exam: Triggered on Admission Diagnosis: Acute Renal Insufficiency, Confusion Open Wound/Cellutlitis/Pressure Ulcers: No Acute Fx/ORIF/Change in wt bearing status: Yes Severe MUSCULOSKELETAL pain: No ADL Dysfunction: Yes Acute CVA w/Hemiparesis/Hemiplegia: No Decreased Functional Mobility/Strength: Yes Sprain/Strain: No Acute Post-op Mobility Dysfunction: No Total Points: 9 PT Screen per Nursing Assess ONCE Comment: Protocol Order Physician Instructions: Greater than 3 points order PT Admission Screenin Reason For Exam: Triggered on Admission Diagnosis: Acute Renal Insufficiency, Confusion Open Wound/Cellutlitis/Pressure Ulcers: No Acute Fx/ORIF/Change in wt bearing status: Yes Severe MUSCULOSKELETAL pain: No ADL Dysfunction: Yes Acute CVA w/Hemiparesis/Hemiplegia: No Decreased Functional Mobility/Strength: Yes Sprain/Strain: No Acute Post-op Mobility Dysfunction: No Total Points: 9 Smoking Cessation Education ONCE Comment: Diagnosis: Acute Renal Insufficiency, Confusion Smoking Status: Current every day smoker How long have you smoked: 60 yrs Have you smoked in the past 12 months: Yes Approximately how many cigarettes per day: 20 Do you dip or chew tobacco: No 08/17/19 23:52 BiPap/CPAP ROUTINE Comment: Diagnosis: Acute Renal Insufficiency, Confusion 08/18/19 10:26 PT Eval & Treat (MD Order) ROUTINE Reason for Eval:: [place] Diagnosis: Acute Renal Insufficiency, Confusion Discharge Exam General Appearance: no apparent distress, alert Neurologic Exam: alert, oriented x 3, cooperative, normal mood/affect, nml cerebellar function, sensation nml, No motor deficits Eye Exam: PERRL, EOMI, eyes nml inspection Ears, Nose, Throat Exam: normal ENT inspection, pharynx normal, moist mucous membranes Neck Exam: normal inspection, non-tender, supple, full range of motion Respiratory Exam: normal breath sounds, lungs clear, No respiratory distress Cardiovascular Exam: regular rate/rhythm, normal heart sounds Gastrointestinal/Abdomen Exam: soft, No tenderness, No mass Male Genitalia Exam: deferred Rectal Exam: deferred Back Exam: normal inspection, normal range of motion, No CVA tenderness, No vertebral tenderness Extremity Exam: normal inspection, normal range of motion Skin Exam: normal color, warm, dry Final Diagnosis/Problem List - Final Discharge Diagnosis/Problem (1) Acute renal insufficiency Current Visit: Yes Status: Resolved Code(s): N28.9 - DISORDER OF KIDNEY AND URETER, UNSPECIFIED (2) Hypertension Current Visit: Yes Status: Chronic Code(s): I10 - ESSENTIAL (PRIMARY) HYPERTENSION (3) Nausea and vomiting Current Visit: Yes Status: Resolved Code(s): R11.2 - NAUSEA WITH VOMITING, UNSPECIFIED (4) Bladder cancer Current Visit: Yes Status: Chronic (5) Pyelonephritis Current Visit: No Status: Resolved Code(s): N12 - TUBULO-INTERSTITIAL NEPHRITIS, NOT SPCF ACUTE OR CHRONIC (6) Diverticulitis Current Visit: Yes Status: Resolved Code(s): K57.92 - DVTRCLI OF INTEST, PART UNSP, W/O PERF OR ABSCESS W/O BLEED - Discharge Discharge Date: 08/19/19 Disposition: Home, Self-Care Condition: Stable Prescriptions: Continue Atorvastatin Calcium 80 mg PO DAILY Ropinirole 2Mg [Requip 2Mg Tab] 2 mg PO HS Chlorthalidone 25 mg PO DAILY Losartan Potassium [Cozaar] 50 mg PO DAILY Amlodipine Besylate [Norvasc] 10 mg PO DAILY Bupropion HCl [Bupropion HCl ER] 300 mg PO DAILY Clopidogrel Bisulfate 75 mg [PLAVIX 75 MG Tablet] 75 mg PO DAILY Cholecalciferol (Vitamin D3) [Vitamin D3] 1,000 unit PO DAILY Aspirin EC 81 mg [Ecotrin 81 mg] 81 mg PO BID Fluoxetine HCl 20 mg [Prozac 20 MG] 20 mg PO DAILY Famotidine 20 mg [Pepcid 20 MG] 20 mg PO BID Hydrocodone/Acetaminophen [[place] 7.5-325 Tablet] 1 each PO BID Alogliptin Benzoate [Alogliptin] 12.5 mg PO DAILY Carvedilol 12.5 mg [Coreg 12.5 mg] 25 mg PO BID Donepezil HCl 10 mg [Aricept 10 MG] 10 mg PO DAILY Instructions: Acute Kidney Failure (DC) Follow up with: BIA RASMUSSEN [ACTIVE STAFF] - 08/25/19 11:15 am (lopez ) ANGELIQUE JARVIS MD [Primary Care Provider] - 08/26/19 10:30 am
[2019-08-20] MEDS ORDERED: PATIENT OWN MEDICATION PO SCH (10:00)
== END 2019-08-19 13:18 | disposition home or self-care (01) ==
LOC: ED 16:25 → MED SURG 21:06
PROVIDERS: ADMIT General Practice; ATTEND General Practice
DX: N28.9 Disorder of kidney and ureter, unspecified (principal); I10 Essential (primary) hypertension; N12 Tubulo-interstitial nephritis, not specified as acute or chronic; R11.2 Nausea with vomiting, unspecified; C67.9 Malignant neoplasm of bladder, unspecified; K57.92 Diverticulitis of intestine, part unspecified, without perforation or abscess without bleeding; Z79.01 Long term (current) use of anticoagulants; Z79.899 Other long term (current) drug therapy
CPT/HCPCS: 36000; 36415; 70450; 71045; 74176; 80048; 80053; 80307; 81001; 82150; 82805; 82962; 83605; 83690; 83735; 84484; 85025; 85027; 85610; 85730; 87040; 87086; 93005; 93041; 93268; 94660; 94760; 96360; 97110; 97162; 99284; G0378; G0480; J1650; J2405; A9270-GY

== ENCOUNTER 2022-06-24 17:33 | Emergency (ER) | payer OTHER, MEDICARE, BC ==
[2022-06-24 18:13] LABS: Absolute Neutrophil Ct (ANC) 10.87 x10^3/uL (1.4-6.9); Basophil (Absolute #) 0.04 x10^3/uL (0-0.4); Eosinophil % 5.5 % (0.00-5.0); Eosinophil (Absolute #) 0.77 x10^3/uL (0-0.5); Hematocrit 33.6 % (42-50); Hemoglobin 10.4 g/dL (12.5-18.0); Lymphocyte (Absolute #) 1.31 x10^3/uL (1.0-4.6); Lymphocytes % 9.3 % (24.0-44.0); Mean Cell Volume 99.7 fL (78-100); Mean Corpuscular Hemoglobin 30.9 pg (26-32); Mean Platelet Volume 9.9 fL (7.5-11.0); Monocyte (Absolute #) 1.07 x10^3/uL (0.0-1.3); Monocytes % 7.6 % (0.0-12.0); Neutrophil % 76.9 % (36.0-66.0); Platelet Count 281 x10^3/uL (150-450); Red Blood Count 3.37 x10^6/uL (4.1-5.6); Red Cell Distribution Width 14.9 % (11.5-14.0); White Blood Count 14.1 x10^3/uL (4.0-10.5)
[2022-06-24 18:35] LABS: ALBUMIN 4.5 g/dL (3.5-5.0); ANION GAP 21.3 MEQ/L (5-15); BILIRUBIN,TOTAL 0.7 mg/dL (0.2-1.3); Calcium 7.7 mg/dL (8.4-10.2); Creatinine 1 8.92 mg/dL (0.66-1.25); EST GLOMERULAR FILTRATION RATE 6.2 ML/MIN; Potassium 5.1 mmol/L (3.5-5.1); Total Protein 7.4 g/dL (6.3-8.2)
[2022-06-24 18:37] LABS: INR 1.28 (0.8-3.0); PROTIME 13.3 SECONDS (9.4-12.5); PTT 31.6 SECONDS (25.1-36.5)
[2022-06-24 19:00] LABS: INFLUENZA A NEGATIVE (NEGATIVE); INFLUENZA B NEGATIVE (NEGATIVE); RESPIRATORY SYNCTIAL VIRUS NEGATIVE (Negative)
--- NOTE | 2022-06-24 19:47 | ERPHSYRPT ---
- History of Present Illness Source: patient, EMS Exam Limitations: other (Very poor historian) Patient Subjective Stated Complaint: SOB Triage Nursing Assessment: Patient brought into ED per EMS and transferred to bed with assist of 4. Patient A+O x3. Patient's skin pink, warm and dry. Patient complains of SOB that started yesterday. Patient on hemodialysis and goes M, W, F. EMS arrived patient O2 in 80s and placed on bipap. Upon arrival to ED O2 88% and placed on 6 liters per Oxymask per RT. Patient complains of intermitent chest pain that past 5 days. Lungs dimininished throughout. Physician History: 77 yo wm w ESRD on dialysis M/W/F presents per EMS w dyspnea. Pt states that he received full dialysis yesterday. He states that he is more dyspneic when lying flat. Pt was seen at the [facility] today for consult for hand surgery and also seen PCP today. He states that he had mild mid-sternal chest pain before arrival to the ER which was sharp/moderate and has now abated. He denies N/V/D/melena/hematochezia. Timing/Duration: today Activities at Onset: rest Severity of Dyspnea-Max: moderate Severity of Dyspnea-Current: mild Possible Cause: occasional episodes Modifying Factors: Improves With: activity Associated Symptoms: chest pain/discomfort, weakness, No constant, No intermittent, No anxiety, No cough, No edema, No fever, No insomnia, No lightheadedness, No wheezing, No ankle swelling, No chills, No hemoptysis, No calf pain, No dizziness, No heaviness, No heart racing, No lightheadedness, No leg swelling, No muscle spasms feet, No productive cough Allergies/Adverse Reactions: No Known Drug Allergies Allergy (Verified 06/24/22 17:38) Home Medications: Alogliptin Benzoate [Alogliptin] 12.5 mg PO DAILY 08/01/19 [History] Amlodipine Besylate [Norvasc] 10 mg PO DAILY 08/01/19 [History] Aspirin EC 81 mg [Ecotrin 81 mg] 81 mg PO BID 08/01/19 [History] Atorvastatin Calcium 80 mg PO DAILY 08/01/19 [History] Carvedilol 12.5 mg [Coreg 12.5 mg] 25 mg PO BID 08/01/19 [History] Chlorthalidone 25 mg PO DAILY 08/01/19 [History] Cholecalciferol (Vitamin D3) [Vitamin D3] 1,000 unit PO DAILY 08/01/19 [History] Clopidogrel Bisulfate [PLAVIX Tablet] 75 mg PO DAILY 08/01/19 [History] Famotidine 20 mg [Pepcid 20 MG] 20 mg PO BID 08/01/19 [History] Fluoxetine HCl 20 mg [Prozac 20 MG] 20 mg PO DAILY 08/01/19 [History] Hydrocodone/Acetaminophen [[place] 7.5-325 Tablet] 1 each PO BID 08/01/19 [History] Losartan Potassium [Cozaar] 50 mg PO DAILY 08/01/19 [History] Ropinirole 2Mg [Requip 2Mg Tab] 2 mg PO HS 08/01/19 [History] buPROPion HCL [Bupropion HCl ER] 300 mg PO DAILY 08/01/19 [History] Donepezil HCl 10 mg [Aricept 10 MG] 10 mg PO DAILY 08/17/19 [History] Hx Influenza Vaccination/Date Given: Yes Hx Pneumococcal Vaccination/Date Given: No Immunizations Up to Date: Yes Travel Risk - International Travel Have you traveled outside of the country in past 3 weeks: No - Coronavirus Screening Are you exhibiting any of the following symptoms?: Yes Symptoms: Shortness of Breath Close contact with a COVID-19 positive Pt in past 14-21 Days: No - Vaccine Status Have you recieved a Covid-19 vaccination: Yes 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 - Vaccination Dates Date of 2cond Vaccination (if applicable): na Dates if Unknown: na - Review of Systems Constitutional: No Symptoms Eyes: No Symptoms Ears, Nose, & Throat: No Symptoms Respiratory: No Symptoms, Dyspnea Cardiac: No Symptoms, Chest Pain Abdominal/Gastrointestinal: No Symptoms Genitourinary Symptoms: No Symptoms Musculoskeletal: No Symptoms Skin: No Symptoms Neurological: No Symptoms Psychological: No Symptoms Endocrine: No Symptoms Hematologic/Lymphatic: No Symptoms Immunological/Allergic: No Symptoms - Past Medical History Pertinent Past Medical History: Yes Neurological History: Dementia ENT History: Cataracts Cardiac History: High Cholesterol, Hypertension Respiratory History: No Pertinent History Endocrine Medical History: Diabetes Type II Musculoskeletal History: Arthritis GI Medical History: GERD History: Renal Disease Psycho-Social History: No Pertinent History Male Reproductive Disorders: No Pertinent History Other Medical History: exposed to agent orange in [place],UTI 07/2019. dialysis 2019 - Past Surgical History Past Surgical History: Yes (heart stint, abd hernia repair) Neuro Surgical History: No Pertinent History Cardiac: Cardiac Catheterization Respiratory: No Pertinent History Gastrointestinal: No Pertinent History Genitourinary: No Pertinent History Musculoskeletal: No Pertinent History Male Surgical History: No Pertinent History Other Surgical History: lap choley - Social History Smoking Status: Former smoker How long have you smoked: 60 yrs Exposure to second hand smoke: Yes Drug Use: none Patient Lives Alone: No Significant Family History: no pertinent family hx - Nursing Vital Signs Nursing Vital Signs: Initial Vital Signs Temperature 98.8 F 06/24/22 17:39 Pulse Rate 74 06/24/22 17:39 Respiratory Rate 30 H 06/24/22 17:39 Blood Pressure 220/123 06/24/22 17:39 O2 Sat by Pulse Oximetry 90 L 06/24/22 17:39 Pain Scale Pain Intensity 5 Hypertensive/Borderline sats/Tachypneic - Physical Exam General Appearance: mild distress Eye Exam: PERRL/EOMI, eyes nml inspection Ears, Nose, Throat Exam: hearing grossly normal, normal ENT inspection, normal pharynx Neck Exam: normal inspection, non-tender, supple, full range of motion, No Brudzinski, No Kernig's, No meningismus Respiratory Exam: respiratory distress (Mild), airway intact, prolonged expir ations, crackles/rales (B bases) Cardiovascular/Chest Exam: normal heart sounds, regular rate/rhythm, No murmur Abdominal/Gastrointestinal Exam: soft, normal bowel sounds, No tenderness Extremity Exam: non-tender, normal range of motion Neurologic Exam: alert, oriented x 3, cooperative, internet merchant II-XII nml as tested, normal mood/affect, sensation nml Skin Exam: normal color, warm, dry Lymphatic Exam: No adenopathy SpO2 Interpretation: borderline oxygenation SpO2: 90 O2 Delivery: Oxymask - Course Nursing assessment & vital signs reviewed: Yes EKG Interpreted by Me: RATE (Poor tracing/Normal QT-QTc/[place]) - Radiology Exams Chest X-ray Interpretation: Interpreted by me (Interstitual edema pattern) Ordered Tests: Active Orders 24 hr Category Date Time Status EKG-ER Only STAT Care 06/24/22 17:43 Completed CHEST 1 VIEW (PORTABLE) Stat Exams 06/24/22 17:43 Taken CBC W DIFF Stat Lab 06/24/22 18:05 Completed CMP Stat Lab 06/24/22 18:05 Completed NT PRO BNP Stat Lab 06/24/22 18:05 Completed PROTIME WITH INR Stat Lab 06/24/22 18:05 Completed PTT Stat Lab 06/24/22 18:05 Completed TROPONIN Q4H Lab 06/24/22 18:05 Completed Lab/Rad Data: Laboratory Result Diagrams 06/24/22 18:05 06/24/22 18:05 Laboratory Results 06/24/22 06/24/22 06/24/22 Range/Units 18:05 18:05 18:05 WBC (4.0-10.5) x10^3/uL RBC (4.1-5.6) x10^6/uL Hgb (12.5-18.0) g/dL Hct (42-50) % MCV (78-100) fL MCH (26-32) pg MCHC (32-36) g/dL RDW (11.5-14.0) % Plt Count (150-450) x10^3/uL MPV (7.5-11.0) fL Gran % (36.0-66.0) % Immature Gran % (Auto) (0.00-0.4) % Nucleat RBC Rel Count (0.00-0.1) % Eos # (Auto) (0-0.5) x10^3/uL Immature Gran # (Auto) (0.00-0.03) x10^3u/L Absolute Lymphs (auto) (1.0-4.6) x10^3/uL Absolute Monos (auto) (0.0-1.3) x10^3/uL Absolute Nucleated RBC (0.00-0.01) x10^3u/L Lymphocytes % (24.0-44.0) % Monocytes % (0.0-12.0) % Eosinophils % (0.00-5.0) % Basophils % (0.0-0.4) % Absolute Granulocytes (1.4-6.9) x10^3/uL Basophils # (0-0.4) x10^3/uL PT 13.3 H (9.4-12.5) SECONDS INR 1.28 (0.8-3.0) APTT 31.6 (25.1-36.5) SECONDS Sodium (137-145) mmol/L Potassium (3.5-5.1) mmol/L Chloride (98-107) mmol/L Carbon Dioxide (22-30) mmol/L Anion Gap (5-15) MEQ/L BUN (9-20) mg/dL Creatinine (0.66-1.25) mg/dL Estimated GFR ML/MIN Glucose (74-106) mg/dL Calcium (8.4-10.2) mg/dL Total Bilirubin (0.2-1.3) mg/dL AST (17-59) U/L ALT (0-50) U/L Alkaline Phosphatase (38-126) U/L Troponin I < 0.012 (0.000-0.034) ng/mL NT-Pro-B Natriuret Pep (0-1800) pg/mL Serum Total Protein (6.3-8.2) g/dL Albumin (3.5-5.0) g/dL Influenza Type A Ag NEGATIVE (NEGATIVE) Influenza Type B Ag NEGATIVE (NEGATIVE) RSV (PCR) NEGATIVE (Negative) SARS-CoV-2 (PCR) POSITIVE A (NEGATIVE) 06/24/22 06/24/22 Range/Units 18:05 18:05 WBC 14.1 H (4.0-10.5) x10^3/uL RBC 3.37 L (4.1-5.6) x10^6/uL Hgb 10.4 L (12.5-18.0) g/dL Hct 33.6 L (42-50) % MCV 99.7 (78-100) fL MCH 30.9 (26-32) pg MCHC 31.0 L (32-36) g/dL RDW 14.9 H (11.5-14.0) % Plt Count 281 (150-450) x10^3/uL MPV 9.9 (7.5-11.0) fL Gran % 76.9 H (36.0-66.0) % Immature Gran % (Auto) 0.4 (0.00-0.4) % Nucleat RBC Rel Count 0.0 (0.00-0.1) % Eos # (Auto) 0.77 H (0-0.5) x10^3/uL Immature Gran # (Auto) 0.05 H (0.00-0.03) x10^3u/L Absolute Lymphs (auto) 1.31 (1.0-4.6) x10^3/uL Absolute Monos (auto) 1.07 (0.0-1.3) x10^3/uL Absolute Nucleated RBC 0.00 (0.00-0.01) x10^3u/L Lymphocytes % 9.3 L (24.0-44.0) % Monocytes % 7.6 (0.0-12.0) % Eosinophils % 5.5 H (0.00-5.0) % Basophils % 0.3 (0.0-0.4) % Absolute Granulocytes 10.87 H (1.4-6.9) x10^3/uL Basophils # 0.04 (0-0.4) x10^3/uL PT (9.4-12.5) SECONDS INR (0.8-3.0) APTT (25.1-36.5) SECONDS Sodium 139 (137-145) mmol/L Potassium 5.1 (3.5-5.1) mmol/L Chloride 96 L (98-107) mmol/L Carbon Dioxide 27 (22-30) mmol/L Anion Gap 21.3 H (5-15) MEQ/L BUN 40 H (9-20) mg/dL Creatinine 8.92 H (0.66-1.25) mg/dL Estimated GFR 6.2 ML/MIN Glucose 126 H (74-106) mg/dL Calcium 7.7 L (8.4-10.2) mg/dL Total Bilirubin 0.70 (0.2-1.3) mg/dL AST 20 (17-59) U/L ALT 16 (0-50) U/L Alkaline Phosphatase 60 (38-126) U/L Troponin I (0.000-0.034) ng/mL NT-Pro-B Natriuret Pep 02728 H (0-1800) pg/mL Serum Total Protein 7.4 (6.3-8.2) g/dL Albumin 4.5 (3.5-5.0) g/dL Influenza Type A Ag (NEGATIVE) Influenza Type B Ag (NEGATIVE) RSV (PCR) (Negative) SARS-CoV-2 (PCR) (NEGATIVE) - Progress Progress: improved Progress Note: 06/24/22 20:[address] Briseno at [facility] 06/25/22 02:05 Pt arrived on Bipap but was weaned to 6L O2 Oxymask per RT Counseled pt/family regarding: lab results, diagnosis, need for follow-up, rad results - Departure Departure Disposition: Transfer Clinical Impression: Fluid overload, COVID-19 Condition: Stable Critical Care Time: Yes Critical Care Time(excluding separately billable procedures): Critical 30-74 mins Referrals: ANGELIQUE JARVIS MD [Primary Care Provider] - Follow up/PCP as directed
[2022-06-24 20:06] LABS: SARS-CoV-2 Xpert Express POSITIVE (NEGATIVE)
[2022-06-24 21:07] VITALS: BP 118/48; PULSE 71
[2022-06-25 02:06] VITALS: O2SAT 90
--- NOTE | 2022-06-25 09:02 | XRAY ---
Indication: Dyspnea. Comparison: August 18, 2019 Portable chest demonstrates new diffuse bilateral hazy interstitial alveolar opacities without consolidation/large effusion. Stable calcified granulomas. Heart not enlarged. Bony thorax intact again with osteopenia and degenerative changes.
== END 2022-06-24 21:26 | disposition short-term general hospital (02) ==
LOC: ED 17:33
DX: U07.1 COVID-19 (principal); E87.70 Fluid overload, unspecified; R06.00 Dyspnea, unspecified; R07.9 Chest pain, unspecified; E78.5 Hyperlipidemia, unspecified; I12.0 Hypertensive chronic kidney disease with stage 5 chronic kidney disease or end stage renal disease; Z99.2 Dependence on renal dialysis; E11.9 Type 2 diabetes mellitus without complications; Z79.02 Long term (current) use of antithrombotics/antiplatelets; Z79.84 Long term (current) use of oral hypoglycemic drugs; Z79.899 Other long term (current) drug therapy
CPT/HCPCS: 0241U; 36415; 71045; 80053; 83880; 84484; 85025; 85610; 85730; 93005; 99284

== ENCOUNTER 2022-10-19 01:50 | Emergency (ER) | payer OTHER, MEDICARE, BC ==
[2022-10-19] MEDS ORDERED: DUONEB 0.5-3 MG/3 ml Neb IH ONE ×2 (02:11)
[2022-10-19] MEDS ORDERED: solu-MEDROL 125 MG, Sterile H2O 10 ml 2 ML IV ONE ×2 (02:11)
[2022-10-19] MEDS ORDERED: NITRO-BID 2% UD PACKETS TOP ONE (02:11)
[2022-10-19] MEDS ORDERED: Lasix 40 MG/4 ML IV ONE (02:11)
[2022-10-19] MEDS ORDERED: Sterile H2O 10 ml IJ ONE (02:17)
[2022-10-19] MEDS ORDERED: Lasix 40 MG/4 ML ONE ×2 (02:18→02:22)
[2022-10-19] MEDS ORDERED: solu-MEDROL ONE (02:18)
[2022-10-19] MEDS ORDERED: NITRO-BID 2% UD PACKETS ONE (02:19)
--- NOTE | 2022-10-19 02:21 | ERPHSYRPT ---
- History of Present Illness Source: patient Exam Limitations: no limitations Patient Subjective Stated Complaint: pt states he has been SOB since 1800 yesterday, states that he feels that he keeps getting worse and worse. Triage Nursing Assessment: pt is alert and oriented, laying in bed at this time, pt is short of breath, using accessory muscle, exp whhezes heard in upper lobes, BP 204/84. 96% on room air, hr 80, NSR, no fever Timing/Duration: hour(s) (8), constant, gradual onset, worse Activities at Onset: rest Severity of Dyspnea-Max: severe Severity of Dyspnea-Current: moderate Possible Cause: unknown cause Modifying Factors: Improves With: nothing Associated Symptoms: constant, cough, chest pain/discomfort, heaviness, productive cough, tightness Hx Influenza Vaccination/Date Given: Yes Hx Pneumococcal Vaccination/Date Given: No <KEI MORALES - Last Filed: 10/19/22 06:51> <ANGELIQUE JARVIS - Last Filed: 10/19/22 07:41> - History of Present Illness Time Seen by Provider: 10/19/22 02:11 Physician History: 77-year-old male with concurrent medical history of hypertension, hyperlipidemia, COPD, coronary artery disease status post stenting, congestive heart failure, ESRD on dialysis M// but last 1 was on because of Rachel, diabetes mellitus presented in the ER with chief complaint of worsening shortness of breath since last evening, initially with activity and now with resting. Patient was in severe distress earlier at home, tripoding and is currently feeling better. Reports increased chest tightness and pressure. (KEI MORALES) Allergies/Adverse Reactions: No Known Drug Allergies Allergy (Verified 06/24/22 17:38) Home Medications: Alogliptin Benzoate [Alogliptin] 12.5 mg PO DAILY 08/01/19 [History] Amlodipine Besylate [Norvasc] 10 mg PO DAILY 08/01/19 [History] Aspirin EC 81 mg [Ecotrin 81 mg] 81 mg PO BID 08/01/19 [History] Atorvastatin Calcium 80 mg PO DAILY 08/01/19 [History] Carvedilol 12.5 mg [Coreg 12.5 mg] 25 mg PO BID 08/01/19 [History] Chlorthalidone 25 mg PO DAILY 08/01/19 [History] Cholecalciferol (Vitamin D3) [Vitamin D3] 1,000 unit PO DAILY 08/01/19 [History] Clopidogrel Bisulfate [PLAVIX Tablet] 75 mg PO DAILY 08/01/19 [History] Famotidine 20 mg [Pepcid 20 MG] 20 mg PO BID 08/01/19 [History] Fluoxetine HCl 20 mg [Prozac 20 MG] 20 mg PO DAILY 08/01/19 [History] Hydrocodone/Acetaminophen [Byron 7.5-325 Tablet] 1 each PO BID 08/01/19 [History] Losartan Potassium [Cozaar] 50 mg PO DAILY 08/01/19 [History] Ropinirole 2Mg [Requip 2Mg Tab] 2 mg PO HS 08/01/19 [History] buPROPion HCL [Bupropion HCl ER] 300 mg PO DAILY 08/01/19 [History] Donepezil HCl 10 mg [Aricept 10 MG] 10 mg PO DAILY 08/17/19 [History] Travel Risk - International Travel Have you traveled outside of the country in past 3 weeks: No - Coronavirus Screening Are you exhibiting any of the following symptoms?: Yes Symptoms: Shortness of Breath - Vaccine Status Have you recieved a Covid-19 vaccination: Yes 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 - Vaccination Dates Dates if Unknown: unknown <KEI MORALES - Last Filed: 10/19/22 06:51> - Review of Systems Constitutional: Fatigue Eyes: No Symptoms Ears, Nose, & Throat: No Symptoms Respiratory: Cough, Dyspnea, Wheezing Cardiac: Chest Pain Abdominal/Gastrointestinal: No Symptoms Genitourinary Symptoms: No Symptoms Musculoskeletal: Arthralgias Skin: No Symptoms Psychological: No Symptoms Endocrine: No Symptoms Hematologic/Lymphatic: No Symptoms Immunological/Allergic: No Symptoms <KEI MORALES - Last Filed: 10/19/22 06:51> - Past Medical History Pertinent Past Medical History: Yes Neurological History: Dementia ENT History: Cataracts Cardiac History: Arrhythmia, High Cholesterol, Hypertension Respiratory History: No Pertinent History Endocrine Medical History: Diabetes Type II Musculoskeletal History: Arthritis GI Medical History: GERD History: Renal Disease Psycho-Social History: No Pertinent History Male Reproductive Disorders: No Pertinent History Other Medical History: exposed to agent orange in [place],UTI 07/2019. dialysis 2019, AFIB - Past Surgical History Past Surgical History: Yes (heart stint, abd hernia repair) Neuro Surgical History: No Pertinent History Cardiac: Cardiac Catheterization Respiratory: No Pertinent History Gastrointestinal: No Pertinent History Genitourinary: No Pertinent History Musculoskeletal: No Pertinent History Male Surgical History: No Pertinent History Other Surgical History: lap choley - Social History Smoking Status: Former smoker How long have you smoked: 60 yrs Exposure to second hand smoke: Yes Drug Use: none Patient Lives Alone: No Significant Family History: no pertinent family hx <KEI MORALES - Last Filed: 10/19/22 06:51> - Physical Exam General Appearance: mild distress, alert Eye Exam: PERRL/EOMI, eyes nml inspection Ears, Nose, Throat Exam: hearing grossly normal, normal ENT inspection Neck Exam: normal inspection, non-tender, supple, full range of motion Respiratory Exam: diminished breath sounds, rhonchi, wheezing Cardiovascular/Chest Exam: normal heart sounds, regular rate/rhythm Abdominal/Gastrointestinal Exam: soft, normal bowel sounds Extremity Exam: non-tender, normal range of motion Neurologic Exam: alert, oriented x 3, cooperative Skin Exam: normal color SpO2 Interpretation: normal SpO2: 96 O2 Delivery: Room Air <KEI MORALES - Last Filed: 10/19/22 06:51> - Nursing Vital Signs Nursing Vital Signs: Initial Vital Signs Temperature 98.5 F 10/19/22 01:52 Pulse Rate 78 10/19/22 01:52 Respiratory Rate 24 10/19/22 01:52 Blood Pressure 233/116 10/19/22 01:52 O2 Sat by Pulse Oximetry 95 10/19/22 01:52 Pain Scale Pain Intensity 0 - Course EKG Interpreted by Me: RATE (82), Sinus Rhythm, NORMAL AXIS, NORMAL INTERVALS, Q-wave, Non-specific ST Changes <KEI MORALES - Last Filed: 10/19/22 06:51> Ordered Tests: Active Orders 24 hr Category Date Time Status Sleeve Turner STAT Care 10/19/22 02:12 Active EKG-ER Only STAT Care 10/19/22 02:11 Active IV Insertion STAT Care 10/19/22 02:11 Active CHEST 1 VIEW (PORTABLE) Stat Exams 10/19/22 02:06 Taken BLOOD CULTURE Stat Lab 10/19/22 02:33 Received CBC W DIFF Stat Lab 10/19/22 02:32 Completed CMP Stat Lab 10/19/22 02:32 Completed Lactic Acid Stat Lab 10/19/22 02:11 Completed Lactic Acid Stat Lab 10/19/22 04:25 Completed MAGNESIUM Stat Lab 10/19/22 02:32 Completed NT PRO BNP Stat Lab 10/19/22 02:32 Completed TROPONIN Q4H Lab 10/19/22 10:15 Ordered BiPap/CPAP STAT RT 10/19/22 03:25 Active Respiratory Therapy Assessment DAILY RT 10/19/22 02:16 Active Medication Summary Discontinued Medications Generic Name Dose Route Start Last Admin Trade Name Freq PRN Reason Stop Dose Admin Albuterol/Ipratropium 3 ml 10/19/22 02:11 10/19/22 02:15 Ipratropium/Albuterol Sulfate 3 Ml Ampul.Neb IH 10/19/22 02:12 3 ml STAT ONE Administration Albuterol/Ipratropium Confirm 10/19/22 02:11 Ipratropium/Albuterol Sulfate 3 Ml Ampul.Neb Administered 10/19/22 02:12 Dose 3 ml IH .STK-MED ONE Methylprednisolone Sodium 0 mg 10/19/22 02:11 10/19/22 02:20 Succinate 125 mg/ Sterile IV 10/19/22 02:12 125 mg Water 2 ml STAT ONE Administration Furosemide 60 mg 10/19/22 02:11 10/19/22 02:20 Furosemide 40 Mg/4 Ml Vial IV 10/19/22 02:12 60 mg STAT ONE Administration Furosemide Confirm 10/19/22 02:18 Furosemide 40 Mg/4 Ml Vial Administered 10/19/22 02:19 Dose 40 mg .ROUTE .STK-MED ONE Furosemide Confirm 10/19/22 02:22 Furosemide 40 Mg/4 Ml Vial Administered 10/19/22 02:23 Dose 40 mg .ROUTE .STK-MED ONE Ceftriaxone Sodium/Dextrose 1 g in 50 mls @ 100 mls/hr 10/19/22 06:23 10/19/22 07:22 Rocephin 1 Gm-D5w 50 Ml Bag IV 10/19/22 06:52 Infused STAT STA Infusion Azithromycin 500 mg in 250 mls @ 250 mls/hr 10/19/22 06:24 10/19/22 06:54 Zithromax 500 Mg/ 250 Ml Nacl Premix IV 10/19/22 07:23 250 ml/hr STAT STA 250 mls/hr Administration Ceftriaxone Sodium/Dextrose Confirm 10/19/22 06:26 Rocephin 1 Gm-D5w 50 Ml Bag Administered 10/19/22 06:27 Dose 1 g in 50 mls @ ud IV .STK-MED ONE Azithromycin Confirm 10/19/22 06:51 Zithromax 500 Mg/ 250 Ml Nacl Premix Administered 10/19/22 06:52 Dose 500 mg in 250 mls @ ud IV .STK-MED ONE Methylprednisolone Sodium Succinate Confirm 10/19/22 02:18 Methylprednis Sod Succ 125 Mg/2 Ml Vial Administered 10/19/22 02:19 Dose 125 mg .ROUTE .STK-MED ONE Nitroglycerin 1 gm 10/19/22 02:11 10/19/22 02:21 Nitroglycerin 1 Gm Packet TOP 10/19/22 02:12 1 gm STAT ONE Administration Nitroglycerin Confirm 10/19/22 02:19 Nitroglycerin 1 Gm Packet Administered 10/19/22 02:20 Dose 1 gm .ROUTE .STK-MED ONE Sterile Water Confirm 10/19/22 02:17 Water For Injection,Sterile 10 Ml Vial Administered 10/19/22 02:18 Dose 10 ml IJ .STK-MED ONE Lab/Rad Data: Laboratory Result Diagrams 10/19/22 02:32 10/19/22 02:32 Laboratory Results 10/19/22 10/19/22 10/19/22 Range/Units 05:58 04:25 02:32 WBC (4.0-10.5) x10^3/uL RBC (4.1-5.6) x10^6/uL Hgb (12.5-18.0) g/dL Hct (42-50) % MCV (78-100) fL MCH (26-32) pg MCHC (32-36) g/dL RDW (11.5-14.0) % Plt Count (150-450) x10^3/uL MPV (7.5-11.0) fL Gran % (36.0-66.0) % Immature Gran % (Auto) (0.00-0.4) % Nucleat RBC Rel Count (0.00-0.1) % Eos # (Auto) (0-0.5) x10^3/uL Immature Gran # (Auto) (0.00-0.03) x10^3u/L Absolute Lymphs (auto) (1.0-4.6) x10^3/uL Absolute Monos (auto) (0.0-1.3) x10^3/uL Absolute Nucleated RBC (0.00-0.01) x10^3u/L Lymphocytes % (24.0-44.0) % Monocytes % (0.0-12.0) % Eosinophils % (0.00-5.0) % Basophils % (0.0-0.4) % Absolute Granulocytes (1.4-6.9) x10^3/uL Basophils # (0-0.4) x10^3/uL Sodium (137-145) mmol/L Potassium (3.5-5.1) mmol/L Chloride (98-107) mmol/L Carbon Dioxide (22-30) mmol/L Anion Gap (5-15) MEQ/L BUN (9-20) mg/dL Creatinine (0.66-1.25) mg/dL Estimated GFR ML/MIN Glucose (74-106) mg/dL Lactic Acid 1.1 (0.4-2.0) Calcium (8.4-10.2) mg/dL Magnesium (1.6-2.3) mg/dL Total Bilirubin (0.2-1.3) mg/dL AST (17-59) U/L ALT (0-50) U/L Alkaline Phosphatase (38-126) U/L Troponin 0.05 H 0.01 (0.00-0.03) ng/mL NT-Pro-B Natriuret Pep (0-1800) pg/mL Serum Total Protein (6.3-8.2) g/dL Albumin (3.5-5.0) g/dL 10/19/22 10/19/22 10/19/22 Range/Units 02:32 02:32 02:11 WBC 12.6 H (4.0-10.5) x10^3/uL RBC 3.40 L (4.1-5.6) x10^6/uL Hgb 10.7 L (12.5-18.0) g/dL Hct 34.3 L (42-50) % MCV 100.9 H (78-100) fL MCH 31.5 (26-32) pg MCHC 31.2 L (32-36) g/dL RDW 15.9 H (11.5-14.0) % Plt Count 254 (150-450) x10^3/uL MPV 9.8 (7.5-11.0) fL Gran % 75.4 H (36.0-66.0) % Immature Gran % (Auto) 0.3 (0.00-0.4) % Nucleat RBC Rel Count 0.0 (0.00-0.1) % Eos # (Auto) 0.40 (0-0.5) x10^3/uL Immature Gran # (Auto) 0.04 H (0.00-0.03) x10^3u/L Absolute Lymphs (auto) 1.67 (1.0-4.6) x10^3/uL Absolute Monos (auto) 0.94 (0.0-1.3) x10^3/uL Absolute Nucleated RBC 0.00 (0.00-0.01) x10^3u/L Lymphocytes % 13.3 L (24.0-44.0) % Monocytes % 7.5 (0.0-12.0) % Eosinophils % 3.2 (0.00-5.0) % Basophils % 0.3 (0.0-0.4) % Absolute Granulocytes 9.51 H (1.4-6.9) x10^3/uL Basophils # 0.04 (0-0.4) x10^3/uL Sodium 139 (137-145) mmol/L Potassium 4.8 (3.5-5.1) mmol/L Chloride 101 (98-107) mmol/L Carbon Dioxide 22 (22-30) mmol/L Anion Gap 20.7 H (5-15) MEQ/L BUN 62 H (9-20) mg/dL Creatinine 9.60 H (0.66-1.25) mg/dL Estimated GFR 5.7 ML/MIN Glucose 189 H (74-106) mg/dL Lactic Acid 2.2 H (0.4-2.0) Calcium 8.2 L (8.4-10.2) mg/dL Magnesium 1.8 (1.6-2.3) mg/dL Total Bilirubin 0.70 (0.2-1.3) mg/dL AST 18 (17-59) U/L ALT 9 (0-50) U/L Alkaline Phosphatase 56 (38-126) U/L Troponin (0.00-0.03) ng/mL NT-Pro-B Natriuret Pep (0-1800) pg/mL Serum Total Protein 7.5 (6.3-8.2) g/dL Albumin 4.5 (3.5-5.0) g/dL - Progress Progress: improved, re-examined Air Movement: fair Blood Culture(s) Obtained: Yes Antibiotics given: Yes Discussed with Dr.: Other Counseled pt/family regarding: lab results, diagnosis, rad results <KEI MORALES - Last Filed: 10/19/22 06:51> - Progress Discussed with Dr.: Other (Dr Levy ([facility] Hospitalist)) <ANGELIQUE JARVIS - Last Filed: 10/19/22 07:41> - Progress Progress Note: 10/19/22 06:45 77-year-old is evaluated for worsening shortness of breath. He is given DuoNeb and steroids along with a dose of Lasix. Patient is feeling much better on reevaluation and maintaining oxygen saturation around 98% on room air. Does have bilateral airspace disease/pneumonia and started on antibiotics Rocephin and Zithromax. I believe patient has a combination of fluid overload. Has a white count of 12, lactate of 2.2 with mild elevation in second troponin. Patient is due for dialysis. [facility] transfer center is called. (KEI MORALES) - Departure Critical Care Time: No <KEI MORALES - Last Filed: 10/19/22 06:51> - Departure Departure Disposition: Transfer Critical Care Time: Yes Critical Care Time(excluding separately billable procedures): Critical 30-74 mins <ANGELIQUE JARVIS - Last Filed: 10/19/22 07:41> - Departure Clinical Impression: Chronic renal disease, stage 5, glomerular filtration rate less than or equal to 15 mL/min/1.73 square meter, Elevated troponin Bilateral pneumonia Qualifiers: Pneumonia type: due to unspecified organism Lung location: lower lobe of lung Qualified Code(s): J18.9 - Pneumonia, unspecified organism Fluid overload Qualifiers: Hypervolemia type: other Qualified Code(s): E87.79 - Other fluid overload Bladder cancer Qualifiers: Bladder location: unspecified site Qualified Code(s): C67.9 - Malignant neoplasm of bladder, unspecified Hypertension Qualifiers: Hypertension type: renovascular hypertension Qualified Code(s): I15.0 - Renovascular hypertension Condition: Fair Referrals: ANGELIQUE JARVIS MD [Primary Care Provider] - Follow up/PCP as directed
[2022-10-19 02:36] LABS: Absolute Neutrophil Ct (ANC) 9.51 x10^3/uL (1.4-6.9); Basophil (Absolute #) 0.04 x10^3/uL (0-0.4); Eosinophil % 3.2 % (0.00-5.0); Hematocrit 34.3 % (42-50); Hemoglobin 10.7 g/dL (12.5-18.0); Lymphocyte (Absolute #) 1.67 x10^3/uL (1.0-4.6); Lymphocytes % 13.3 % (24.0-44.0); Mean Cell Volume 100.9 fL (78-100); Mean Corpuscular Hemoglobin 31.5 pg (26-32); Mean Corpuscular Hgb Concent. 31.2 g/dL (32-36); Mean Platelet Volume 9.8 fL (7.5-11.0); Monocyte (Absolute #) 0.94 x10^3/uL (0.0-1.3); Monocytes % 7.5 % (0.0-12.0); Neutrophil % 75.4 % (36.0-66.0); Platelet Count 254 x10^3/uL (150-450); Red Cell Distribution Width 15.9 % (11.5-14.0); White Blood Count 12.6 x10^3/uL (4.0-10.5)
[2022-10-19 02:49] LABS: ALBUMIN 4.5 g/dL (3.5-5.0); ANION GAP 20.7 MEQ/L (5-15); BILIRUBIN,TOTAL 0.7 mg/dL (0.2-1.3); Calcium 8.2 mg/dL (8.4-10.2); Creatinine 1 9.6 mg/dL (0.66-1.25); EST GLOMERULAR FILTRATION RATE 5.7 ML/MIN; MAGNESIUM 1.8 mg/dL (1.6-2.3); Potassium 4.8 mmol/L (3.5-5.1); Total Protein 7.5 g/dL (6.3-8.2)
[2022-10-19] MEDS ORDERED: ROCEPHIN 1 Gm-D5w 50 ml Bag** 1 G/50 ML IVPB IV STA (06:23)
[2022-10-19] MEDS ORDERED: Zithromax 500 MG/ 250 ML NaCl Premix 500 MG/250 ML IVPB IV STA (06:24)
[2022-10-19] MEDS ORDERED: ROCEPHIN 1 Gm-D5w 50 ml Bag** 1 G/50 ML IVPB IV ONE (06:26)
[2022-10-19] MEDS ORDERED: Zithromax 500 MG/ 250 ML NaCl Premix 500 MG/250 ML IVPB IV ONE (06:51)
--- NOTE | 2022-10-19 08:15 | XRAY ---
Indication: Short of breath. Comparison: June 24, 2022 Portable chest again demonstrates mild diffuse bilateral interstitial alveolar opacities less than before with stable left lung calcified granuloma. Heart not enlarged. Bony thorax intact again with osteopenia and degenerative changes. No new cardiopulmonary abnormalities. Comment: Preliminary interpretation made by [facility]. No critical discrepancy.
[2022-10-19 10:10] VITALS: BP 184/80; PULSE 78; O2SAT 96
== END 2022-10-19 10:12 | disposition short-term general hospital (02) ==
LOC: ED 01:50
DX: J18.9 Pneumonia, unspecified organism (principal); E11.22 Type 2 diabetes mellitus with diabetic chronic kidney disease; I12.0 Hypertensive chronic kidney disease with stage 5 chronic kidney disease or end stage renal disease; N18.5 Chronic kidney disease, stage 5; Z99.2 Dependence on renal dialysis; E87.79 Other fluid overload; C67.9 Malignant neoplasm of bladder, unspecified; R77.8 Other specified abnormalities of plasma proteins; R06.02 Shortness of breath; R07.9 Chest pain, unspecified; E78.5 Hyperlipidemia, unspecified; Z79.02 Long term (current) use of antithrombotics/antiplatelets; Z79.899 Other long term (current) drug therapy
CPT/HCPCS: 36000; 36415; 71045; 80053; 83605; 83735; 83880; 84484; 85025; 87040; 93005; 93041; 94640; 94660; 96365; 96367; 96374; 96375; 99285; 99291; J0456; J0696; J1940; J2930; A9270-GY

== ENCOUNTER 2022-10-26 18:41 | Emergency (ER) | payer OTHER, MEDICARE, BC ==
[2022-10-26] MEDS ORDERED: Lasix 40 MG/4 ML IV ONE (19:09)
[2022-10-26] MEDS ORDERED: DUONEB 0.5-3 MG/3 ml Neb IH ONE ×2 (19:09→19:36)
[2022-10-26] MEDS ORDERED: solu-MEDROL 125 MG, Sterile H2O 10 ml 2 ML IV ONE ×2 (19:09)
[2022-10-26] MEDS ORDERED: Sterile H2O 10 ml IJ ONE (19:13)
[2022-10-26] MEDS ORDERED: Lasix 40 MG/4 ML ONE (19:14)
[2022-10-26] MEDS ORDERED: solu-MEDROL ONE (19:14)
[2022-10-26 19:26] LABS: Absolute Neutrophil Ct (ANC) 8.19 x10^3/uL (1.4-6.9); Basophil (Absolute #) 0.05 x10^3/uL (0-0.4); Eosinophil % 4.8 % (0.00-5.0); Eosinophil (Absolute #) 0.54 x10^3/uL (0-0.5); Hematocrit 32.9 % (42-50); Hemoglobin 10.1 g/dL (12.5-18.0); Lymphocyte (Absolute #) 1.61 x10^3/uL (1.0-4.6); Lymphocytes % 14.2 % (24.0-44.0); Mean Cell Volume 100.6 fL (78-100); Mean Corpuscular Hemoglobin 30.9 pg (26-32); Mean Corpuscular Hgb Concent. 30.7 g/dL (32-36); Mean Platelet Volume 9.8 fL (7.5-11.0); Monocyte (Absolute #) 0.89 x10^3/uL (0.0-1.3); Monocytes % 7.9 % (0.0-12.0); Neutrophil % 72.4 % (36.0-66.0); Platelet Count 267 x10^3/uL (150-450); Red Blood Count 3.27 x10^6/uL (4.1-5.6); Red Cell Distribution Width 15.5 % (11.5-14.0); White Blood Count 11.3 x10^3/uL (4.0-10.5)
[2022-10-26 19:48] LABS: ALBUMIN 4.2 g/dL (3.5-5.0); ANION GAP 16.7 MEQ/L (5-15); BILIRUBIN,TOTAL 0.4 mg/dL (0.2-1.3); Creatinine 1 8.47 mg/dL (0.66-1.25); EST GLOMERULAR FILTRATION RATE 6.6 ML/MIN; Potassium 5.2 mmol/L (3.5-5.1); Total Protein 7.4 g/dL (6.3-8.2)
--- NOTE | 2022-10-26 20:19 | ERPHSYRPT ---
- History of Present Illness Time Seen by Provider: 10/26/22 19:09 Source: patient Exam Limitations: no limitations Patient Subjective Stated Complaint: C/O Shortness of breath for about the last hour. Patient states that he has been having sharp chest pains for the past 30 minutes as well. Triage Nursing Assessment: Patient brought back to the ED in a w/c. Patient was able to transfer self from chair to be with a stand-by assist. Labored breathing is noted; patient was SOB upon arrival. Patient has a fistula to his LUE; hemodialysis patient. Slight edema noted to BLE. Right lung diminished. Physician History: Patient is here with most likely volume overload, shortness of breath, mild chest pains. Patient states that he was just discharged from the hospital 5 days ago. This was at [facility]. He is a dialysis patient. Patient has dialysis tomorrow morning at 7 AM. Patient was treated for pneumonia, volume overload and shortness of breath on his last hospital stay. He has been on antibiotics last 5 days. His last dose was today. Patient is currently not hypoxic. He is 91% on room air. Patient does have a history of COPD as well. He is on Symbicort. He is somewhat wheezy when discussing with him. He is in no acute respiratory distress, has no active chest pain right now. Patient's adult son and are at bedside. Timing/Duration: today Allergies/Adverse Reactions: No Known Drug Allergies Allergy (Verified 10/26/22 18:43) Home Medications: Alogliptin Benzoate [Alogliptin] 12.5 mg PO DAILY 08/01/19 [History] Amlodipine Besylate [Norvasc] 10 mg PO DAILY 08/01/19 [History] Aspirin EC 81 mg [Ecotrin 81 mg] 81 mg PO BID 08/01/19 [History] Atorvastatin Calcium 80 mg PO DAILY 08/01/19 [History] Carvedilol 12.5 mg [Coreg 12.5 mg] 25 mg PO BID 08/01/19 [History] Chlorthalidone 25 mg PO DAILY 08/01/19 [History] Cholecalciferol (Vitamin D3) [Vitamin D3] 1,000 unit PO DAILY 08/01/19 [History] Clopidogrel Bisulfate [PLAVIX Tablet] 75 mg PO DAILY 08/01/19 [History] Famotidine 20 mg [Pepcid 20 MG] 20 mg PO BID 08/01/19 [History] Fluoxetine HCl 20 mg [Prozac 20 MG] 20 mg PO DAILY 08/01/19 [History] Hydrocodone/Acetaminophen [[place] 7.5-325 Tablet] 1 each PO BID 08/01/19 [History] Losartan Potassium [Cozaar] 50 mg PO DAILY 08/01/19 [History] Ropinirole 2Mg [Requip 2Mg Tab] 2 mg PO HS 08/01/19 [History] buPROPion HCL [Bupropion HCl ER] 300 mg PO DAILY 08/01/19 [History] Donepezil HCl 10 mg [Aricept 10 MG] 10 mg PO DAILY 08/17/19 [History] Hx Tetanus, Diphtheria Vaccination/Date Given: Yes Hx Influenza Vaccination/Date Given: Yes Hx Pneumococcal Vaccination/Date Given: Yes (Unsure) Immunizations Up to Date: Yes Travel Risk - International Travel Have you traveled outside of the country in past 3 weeks: No - Coronavirus Screening Are you exhibiting any of the following symptoms?: Yes Symptoms: Shortness of Breath Close contact with a COVID-19 positive Pt in past 14-21 Days: No - Vaccine Status Have you recieved a Covid-19 vaccination: Yes [employer] Leadperson: Unknown - Vaccination Dates Dates if Unknown: unknown - Review of Systems Constitutional: No Fever, No Chills Eyes: No Symptoms Ears, Nose, & Throat: No Symptoms Respiratory: Dyspnea, No Cough Cardiac: Chest Pain, No Edema, No Syncope Abdominal/Gastrointestinal: No Abdominal Pain, No Nausea, No Vomiting, No Diarrhea Genitourinary Symptoms: No Dysuria Musculoskeletal: No Back Pain, No Neck Pain Skin: No Rash Neurological: No Dizziness, No Focal Weakness, No Sensory Changes Psychological: No Symptoms Endocrine: No Symptoms All Other Systems: Reviewed and Negative - Past Medical History Pertinent Past Medical History: Yes Neurological History: Dementia ENT History: Cataracts Cardiac History: Arrhythmia, High Cholesterol, Hypertension Respiratory History: Pneumonia, Tuberculosis Endocrine Medical History: Diabetes Type II Musculoskeletal History: Arthritis GI Medical History: GERD History: Renal Disease Psycho-Social History: No Pertinent History Male Reproductive Disorders: No Pertinent History Other Medical History: exposed to agent orange in [place], hemodialysis, AFIB - Past Surgical History Past Surgical History: Yes (heart stint, abd hernia repair) Neuro Surgical History: No Pertinent History Cardiac: Cardiac Catheterization Respiratory: No Pertinent History Gastrointestinal: No Pertinent History Genitourinary: No Pertinent History Musculoskeletal: No Pertinent History Male Surgical History: No Pertinent History Other Surgical History: lap choley - Social History Smoking Status: Former smoker How long have you smoked: 60 yrs Exposure to second hand smoke: Yes Drug Use: none Patient Lives Alone: No Significant Family History: no pertinent family hx - Nursing Vital Signs Nursing Vital Signs: Initial Vital Signs Temperature 98 F 10/26/22 18:43 Pulse Rate 66 10/26/22 18:43 Respiratory Rate 19 10/26/22 18:43 Blood Pressure 200/64 10/26/22 18:43 O2 Sat by Pulse Oximetry 95 10/26/22 18:43 Pain Scale Pain Intensity 0 - Physical Exam General Appearance: no apparent distress, alert Eye Exam: PERRL/EOMI, eyes nml inspection Ears, Nose, Throat Exam: normal ENT inspection, TMs normal, pharynx normal, moist mucous membranes Neck Exam: normal inspection, non-tender, supple, full range of motion Respiratory Exam: crackles/rales (End expiratory wheezes with crackles), wheezing, other, No respiratory distress Cardiovascular Exam: regular rate/rhythm, normal heart sounds, normal peripheral pulses, other (Minimal lower leg edema) Gastrointestinal/Abdomen Exam: soft, normal bowel sounds, No tenderness, No mass Back Exam: normal inspection, normal range of motion, No CVA tenderness, No vertebral tenderness Extremity Exam: normal inspection, normal range of motion, pelvis stable Neurologic Exam: alert, oriented x 3, cooperative, normal mood/affect, nml cereb ellar function, nml station & gait, sensation nml, No motor deficits Skin Exam: normal color, warm, dry, No rash Lymphatic Exam: No adenopathy SpO2: 90 - Course Nursing assessment & vital signs reviewed: Yes EKG Interpreted by Me: Sinus Rhythm (Peaked T waves on first EKG, second EKG obtained T waves look improved on this.) Ordered Tests: Active Orders 24 hr Category Date Time Status EKG-ER Only STAT Care 10/26/22 19:09 Completed IV Insertion STAT Care 10/26/22 19:09 Completed CHEST 1 VIEW (PORTABLE) Stat Exams 10/26/22 19:10 Taken CBC W DIFF Stat Lab 10/26/22 19:20 Completed CMP Stat Lab 10/26/22 19:20 Completed NT PRO BNP Stat Lab 10/26/22 19:20 Completed TROPONIN Q4H Lab 10/26/22 19:20 Completed Respiratory Therapy Assessment DAILY RT 10/26/22 19:41 Completed Medication Summary Discontinued Medications Generic Name Dose Route Start Last Admin Trade Name Angela PRN Reason Stop Dose Admin Albuterol/Ipratropium 3 ml 10/26/22 19:09 10/26/22 19:41 Ipratropium/Albuterol Sulfate 3 Ml Ampul.Neb IH 10/26/22 19:10 3 ml STAT ONE Administration Albuterol/Ipratropium Confirm 10/26/22 19:36 Ipratropium/Albuterol Sulfate 3 Ml Ampul.Neb Administered 10/26/22 19:37 Dose 3 ml IH .STK-MED ONE Methylprednisolone Sodium 0 mg 10/26/22 19:09 10/26/22 19:15 Succinate 125 mg/ Sterile IV 10/26/22 19:10 125 mg Water 2 ml STAT ONE Administration Furosemide 40 mg 10/26/22 19:09 10/26/22 19:15 Furosemide 40 Mg/4 Ml Vial IV 10/26/22 19:10 40 mg STAT ONE Administration Furosemide Confirm 10/26/22 19:14 Furosemide 40 Mg/4 Ml Vial Administered 10/26/22 19:15 Dose 40 mg .ROUTE .STK-MED ONE Methylprednisolone Sodium Succinate Confirm 10/26/22 19:14 Methylprednis Sod Succ 125 Mg/2 Ml Vial Administered 10/26/22 19:15 Dose 125 mg .ROUTE .STK-MED ONE Sterile Water Confirm 10/26/22 19:13 Water For Injection,Sterile 10 Ml Vial Administered 10/26/22 19:14 Dose 10 ml IJ .STK-MED ONE Lab/Rad Data: Laboratory Result Diagrams 10/26/22 19:20 10/26/22 19:20 Laboratory Results 10/26/22 10/26/22 10/26/22 Range/Units 19:45 19:20 19:20 WBC (4.0-10.5) x10^3/uL RBC (4.1-5.6) x10^6/uL Hgb (12.5-18.0) g/dL Hct (42-50) % MCV (78-100) fL MCH (26-32) pg MCHC (32-36) g/dL RDW (11.5-14.0) % Plt Count (150-450) x10^3/uL MPV (7.5-11.0) fL Gran % (36.0-66.0) % Immature Gran % (Auto) (0.00-0.4) % Nucleat RBC Rel Count (0.00-0.1) % Eos # (Auto) (0-0.5) x10^3/uL Immature Gran # (Auto) (0.00-0.03) x10^3u/L Absolute Lymphs (auto) (1.0-4.6) x10^3/uL Absolute Monos (auto) (0.0-1.3) x10^3/uL Absolute Nucleated RBC (0.00-0.01) x10^3u/L Lymphocytes % (24.0-44.0) % Monocytes % (0.0-12.0) % Eosinophils % (0.00-5.0) % Basophils % (0.0-0.4) % Absolute Granulocytes (1.4-6.9) x10^3/uL Basophils # (0-0.4) x10^3/uL Sodium 137 (137-145) mmol/L Potassium 5.2 H (3.5-5.1) mmol/L Chloride 99 (98-107) mmol/L Carbon Dioxide 27 (22-30) mmol/L Anion Gap 16.7 H (5-15) MEQ/L BUN 47 H (9-20) mg/dL Creatinine 8.47 H (0.66-1.25) mg/dL Estimated GFR 6.6 ML/MIN Glucose 127 H (74-106) mg/dL Calcium 8.0 L (8.4-10.2) mg/dL Total Bilirubin 0.40 (0.2-1.3) mg/dL AST 22 (17-59) U/L ALT 9 (0-50) U/L Alkaline Phosphatase 56 (38-126) U/L Troponin I 0.017 (0.000-0.034) ng/mL NT-Pro-B Natriuret Pep 91529 H (0-1800) pg/mL Serum Total Protein 7.4 (6.3-8.2) g/dL Albumin 4.2 (3.5-5.0) g/dL Influenza Type A Ag NEGATIVE (NEGATIVE) Influenza Type B Ag NEGATIVE (NEGATIVE) RSV (PCR) NEGATIVE (Negative) SARS-CoV-2 (PCR) NEGATIVE (NEGATIVE) 10/26/22 Range/Units 19:20 WBC 11.3 H (4.0-10.5) x10^3/uL RBC 3.27 L (4.1-5.6) x10^6/uL Hgb 10.1 L (12.5-18.0) g/dL Hct 32.9 L (42-50) % MCV 100.6 H (78-100) fL MCH 30.9 (26-32) pg MCHC 30.7 L (32-36) g/dL RDW 15.5 H (11.5-14.0) % Plt Count 267 (150-450) x10^3/uL MPV 9.8 (7.5-11.0) fL Gran % 72.4 H (36.0-66.0) % Immature Gran % (Auto) 0.3 (0.00-0.4) % Nucleat RBC Rel Count 0.0 (0.00-0.1) % Eos # (Auto) 0.54 H (0-0.5) x10^3/uL Immature Gran # (Auto) 0.03 (0.00-0.03) x10^3u/L Absolute Lymphs (auto) 1.61 (1.0-4.6) x10^3/uL Absolute Monos (auto) 0.89 (0.0-1.3) x10^3/uL Absolute Nucleated RBC 0.00 (0.00-0.01) x10^3u/L Lymphocytes % 14.2 L (24.0-44.0) % Monocytes % 7.9 (0.0-12.0) % Eosinophils % 4.8 (0.00-5.0) % Basophils % 0.4 (0.0-0.4) % Absolute Granulocytes 8.19 H (1.4-6.9) x10^3/uL Basophils # 0.05 (0-0.4) x10^3/uL Sodium (137-145) mmol/L Potassium (3.5-5.1) mmol/L Chloride (98-107) mmol/L Carbon Dioxide (22-30) mmol/L Anion Gap (5-15) MEQ/L BUN (9-20) mg/dL Creatinine (0.66-1.25) mg/dL Estimated GFR ML/MIN Glucose (74-106) mg/dL Calcium (8.4-10.2) mg/dL Total Bilirubin (0.2-1.3) mg/dL AST (17-59) U/L ALT (0-50) U/L Alkaline Phosphatase (38-126) U/L Troponin I (0.000-0.034) ng/mL NT-Pro-B Natriuret Pep (0-1800) pg/mL Serum Total Protein (6.3-8.2) g/dL Albumin (3.5-5.0) g/dL Influenza Type A Ag (NEGATIVE) Influenza Type B Ag (NEGATIVE) RSV (PCR) (Negative) SARS-CoV-2 (PCR) (NEGATIVE) - Progress Progress: improved Progress Note: 10/26/22 22:12 Patient appears to be volume overload. Most likely secondary to increased intake over holiday weekend. Patient just discharged from the hospital. Patient has an elevated BNP, bilateral pneumonia on chest x-ray, possible also volume overload on chest x-ray. Patient is 90-92% on room air. Potassium at 5.2. Patient was given Lasix, albuterol for this. This actually did help his symptoms overall. Second EKG showed improvement of T waves. I had a recommended patient be admitted to the hospital. This would be for continued close monitoring, potential emergent dialysis, continued diuresis. Patient, and stated they wanted to go home tonight. Even after I explained the risks and benefits of going home, worsening cardiac function, continued volume overload. They were still adamant that they would like to go home. They state that they have dialysis at 7 AM tomorrow and feel that this will resolve the patient's symptoms. While I do agree patient needs dialysis, he also needs continued cardiac monitoring, work-up, possible echocardiogram. I did explain all this to the patient and his . Ultimately, after discussions of severe morbidity and mortality the patient and decided to go home tonight. They will need to return here for any new or changing symptoms. They stated they can return here for any new or changing symptoms. Counseled pt/family regarding: lab results, diagnosis, need for follow-up, rad results - Departure Departure Disposition: Home Clinical Impression: Volume overload, Pneumonia, Bilateral pneumonia, Serum potassium elevated Condition: Stable Critical Care Time: No Referrals: ANGELIQUE JARVIS MD [Primary Care Provider] - Follow up/PCP as directed Instructions: Pneumonia, Adult (DC), Shortness of Breath (Dyspnea) (DC), Exacerbation of COPD (DC) Prescriptions: Levofloxacin [Levofloxacin 250MG Tablet] 750 mg PO DAILY 5 Days tab
[2022-10-26 20:27] LABS: INFLUENZA A NEGATIVE (NEGATIVE); INFLUENZA B NEGATIVE (NEGATIVE); RESPIRATORY SYNCTIAL VIRUS NEGATIVE (Negative); SARS-CoV-2 Xpert Express NEGATIVE (NEGATIVE)
[2022-10-26 21:08] VITALS: BP 161/70; PULSE 65
[2022-10-26 21:20] VITALS: O2SAT 90
--- NOTE | 2022-10-27 09:10 | XRAY ---
Indication: Short of breath. Comparison: October 19, 2022 Portable chest again demonstrates diffuse bilateral interstitial alveolar opacities, slightly worsened throughout right lung without consolidation/large effusion. Heart not enlarged. No new cardiopulmonary abnormalities. Comment: Preliminary interpretation made by [facility]. No critical discrepancy.
== END 2022-10-26 21:48 | disposition home or self-care (01) ==
LOC: ED 18:41
DX: J18.9 Pneumonia, unspecified organism (principal); E87.70 Fluid overload, unspecified; E87.5 Hyperkalemia; R06.02 Shortness of breath; R07.9 Chest pain, unspecified; E78.5 Hyperlipidemia, unspecified; I12.0 Hypertensive chronic kidney disease with stage 5 chronic kidney disease or end stage renal disease; E11.22 Type 2 diabetes mellitus with diabetic chronic kidney disease; N18.6 End stage renal disease; Z99.2 Dependence on renal dialysis; Z79.02 Long term (current) use of antithrombotics/antiplatelets; Z79.899 Other long term (current) drug therapy; Z20.828 Contact with and (suspected) exposure to other viral communicable diseases
CPT/HCPCS: 0241U; 36000; 36415; 71045; 80053; 83880; 84484; 85025; 93005; 94640; 96374; 96375; 99284; J1940; J2930; A9270-GY

== ENCOUNTER 2023-06-04 11:18 | Emergency (ER) | payer OTHER, MEDICARE, BC ==
--- NOTE | 2023-06-04 11:23 | ERPHSYRPT ---
- History of Present Illness Time Seen by Provider: 06/04/23 11:23 Source: patient Exam Limitations: no limitations Physician History: This is a 77-year-old white male patient of Dr. Jarvis who was referred to us by the [facility] secondary to the patient's being dizzy and weak secondary to 9 days of intermittent vomiting and diarrhea. [facility] did perform a COVID and flu test which were negative. Patient has dialysis which he has been undergoing during the last 9 days of intermittent vomiting and diarrhea. Patient has a history of COPD, hypertension, dementia, atrial fibrillation, diabetes, hyperlipidemia, gastroesophageal reflux disease. He has renal disease on dialysis as stated above. Patient does have a cardiac stent and is on Plavix. He denies chest pain. He denies shortness of breath. Patient and his spouse do not want him admitted or transferred unless absolutely necessary. Timing/Duration: day(s) (9 days) Severity: moderate Character of Deficits: new weakness, other (Dizziness) Deficits: decrease ability to walk, weak Baseline/Normal Cognition: alert oriented x 3 Current Cognition: alert oriented x 3 Baseline Gait: walks w/o assistance Associated Symptoms: nausea, vomiting, weakness, other (Diarrhea), No chest pain Allergies/Adverse Reactions: No Known Drug Allergies Allergy (Verified 06/04/23 11:38) Home Medications: Atorvastatin Calcium 80 mg PO DAILY 08/01/19 [History] Carvedilol 12.5 mg [Coreg 12.5 mg] 12.5 mg PO BID 08/01/19 [History] Cholecalciferol (Vitamin D3) [Vitamin D3] 1,000 unit PO DAILY 08/01/19 [History] Clopidogrel Bisulfate [PLAVIX Tablet] 75 mg PO DAILY 08/01/19 [History] Fluoxetine HCl 20 mg [Prozac 20 MG] 20 mg PO DAILY 08/01/19 [History] Hydrocodone/Acetaminophen [[place] 7.5-325 Tablet] 1 each PO Q4HPRN PRN 08/01/19 [History] Ropinirole 2Mg [Requip 2Mg Tab] 2 mg PO HS 08/01/19 [History] buPROPion HCL [Bupropion HCl ER] 300 mg PO DAILY 08/01/19 [History] Albuterol Sulfate [Albuterol Sulfate Hfa] 2 puff IH BID 06/04/23 [History] Apixaban [Eliquis 2.5 mg Tablet] 1 tab PO BID 06/04/23 [History] Budesonide/Formoterol Fumarate [Budesonide-Formoterol 160-4.5] See Rx Instructions .ROUTE .COMPLEX 06/04/23 [History] Clonidine HCl 0.1 mg [Clonidine 0.1 mg Tablet] 0.1 mg PO TID 06/04/23 [ History] Donepezil HCl 10 mg [Aricept 10 MG] 10 mg PO HS 06/04/23 [History] Ferric Citrate [Auryxia] 210 mg PO AC 06/04/23 [History] Gabapentin 300 mg PO DAILY 06/04/23 [History] Lisinopril 20 mg [Zestril 20 MG] 20 mg PO BID 06/04/23 [History] Omeprazole Magnesium [Prilosec Otc] 40 mg PO DAILY 06/04/23 [History] Pantoprazole 20 mg [Protonix 20MG Tablet] See Rx Instructions .ROUTE .COMPLEX 06/04/23 [History] Pyridoxine HCl 100 mg [Vitamin B-6 (Pyridoxine) 100 MG] 1 tab PO DAILY 06/04/23 [History] Hx Tetanus, Diphtheria Vaccination/Date Given: Yes Hx Influenza Vaccination/Date Given: Yes Hx Pneumococcal Vaccination/Date Given: Yes (Unsure) Travel Risk - International Travel Have you traveled outside of the country in past 3 weeks: No - Coronavirus Screening Are you exhibiting any of the following symptoms?: Yes Symptoms: Vomiting/Diarrhea Close contact with a COVID-19 positive Pt in past 14-21 Days: No - Vaccine Status Have you recieved a Covid-19 vaccination: Yes Director Biostatistics: Unknown - Vaccination Dates Dates if Unknown: unknown - Review of Systems Constitutional: Weakness Eyes: No Symptoms Ears, Nose, & Throat: No Symptoms Respiratory: No Symptoms Cardiac: No Symptoms Abdominal/Gastrointestinal: Nausea, Vomiting, Diarrhea, Appetite Changes, No Abdominal Pain Genitourinary Symptoms: No Symptoms Musculoskeletal: No Symptoms Skin: No Symptoms Neurological: Dizziness Psychological: No Symptoms Endocrine: No Symptoms Hematologic/Lymphatic: No Symptoms Immunological/Allergic: No Symptoms All Other Systems: Reviewed and Negative - Past Medical History Pertinent Past Medical History: Yes Neurological History: Dementia ENT History: Cataracts Cardiac History: Arrhythmia, High Cholesterol, Hypertension Respiratory History: Pneumonia, Tuberculosis Endocrine Medical History: Diabetes Type II Musculoskeletal History: Arthritis GI Medical History: GERD History: Renal Disease Psycho-Social History: No Pertinent History Male Reproductive Disorders: No Pertinent History Other Medical History: exposed to agent orange in [place], hemodialysis, AFIB - Past Surgical History Past Surgical History: Yes (heart stint, abd hernia repair) Neuro Surgical History: No Pertinent History Cardiac: Cardiac Catheterization Respiratory: No Pertinent History Gastrointestinal: No Pertinent History Genitourinary: No Pertinent History Musculoskeletal: No Pertinent History Male Surgical History: No Pertinent History Other Surgical History: lap choley - Social History Smoking Status: Former smoker How long have you smoked: 60 yrs Exposure to second hand smoke: Yes Drug Use: none Patient Lives Alone: No Significant Family History: no pertinent family hx - Nursing Vital Signs Nursing Vital Signs: Initial Vital Signs Temperature 97 F 06/04/23 11:38 Pulse Rate 73 06/04/23 11:38 Respiratory Rate 16 06/04/23 11:38 Blood Pressure 169/89 06/04/23 11:38 O2 Sat by Pulse Oximetry 97 06/04/23 11:38 Pain Scale Pain Intensity 6 - [place] Coma Scale Best Eye Response (Cesar): (4) open spontaneously Best Verbal Response (Cesar): (5) oriented Best Motor Response (Cesar): (6) obeys commands [place] Total: 15 - Physical Exam General Appearance: no apparent distress, alert, anxiety Eye Exam: bilateral eye: normal inspection, PERRL, EOMI Ears, Nose, Throat Exam: normal ENT inspection, dry mucous membranes Neck Exam: normal inspection, non-tender, supple, full range of motion Respiratory: normal breath sounds, lungs clear, airway intact, No chest tenderness, No respiratory distress Cardiovascular: regular rate/rhythm, normal heart sounds, normal peripheral pulses Gastrointestinal: soft, normal bowel sounds, tenderness (Mild diffuse), guarding (Mild diffuse to palpation), No rebound Rectal Exam: not done Back Exam: normal inspection, normal range of motion, No CVA tenderness, No vertebral tenderness Extremity Exam: normal inspection, normal range of motion, pelvis stable Mental Status: alert, oriented x 3, cooperative coil builder Exam: normal hearing, normal speech, PERRL Coordination/Gait: normal finger to nose Motor/Sensory: no motor deficit, no sensory deficit, no pronator drift Skin Exam: normal color, warm, dry SpO2 Interpretation: normal O2 Delivery: Room Air - Course Nursing assessment & vital signs reviewed: Yes Ordered Tests: Active Orders 24 hr Category Date Time Status EKG-ER Only STAT Care 06/04/23 12:20 Active IV Insertion STAT Care 06/04/23 12:20 Active ABDOMEN AND PELVIS W/0 CONTRAS [CT] Stat Exams 06/04/23 12:21 Completed AMYLASE Stat Lab 06/04/23 11:55 Completed BLOOD CULTURE Stat Lab 06/04/23 12:21 Received CBC W DIFF Stat Lab 06/04/23 11:55 Completed CMP Stat Lab 06/04/23 11:55 Completed LIPASE Stat Lab 06/04/23 11:55 Completed Lactic Acid Stat Lab 06/04/23 12:25 Completed UA W/RFX UR CULTURE Stat Lab 06/04/23 12:20 Ordered Medication Summary Generic Name Dose Route Start Last Admin Trade Name Freq PRN Reason Stop Dose Admin Sodium Chloride 1,000 mls @ 250 mls/hr 06/04/23 12:30 06/04/23 13:00 Sodium Chloride 0.9% 1000 Ml IV 07/04/23 12:29 250 mls/hr .Q4H FLAVIO Administration Discontinued Medications Generic Name Dose Route Start Last Admin Trade Name Freq PRN Reason Stop Dose Admin Ondansetron HCl 4 mg 06/04/23 12:20 06/04/23 13:00 Ondansetron Hcl 4 Mg/2 Ml Vial IV 06/04/23 12:21 4 mg STAT ONE Administration Ondansetron HCl Confirm 06/04/23 12:58 Ondansetron Hcl 4 Mg/2 Ml Vial Administered 06/04/23 12:59 Dose 4 mg .ROUTE .STK-MED ONE Pantoprazole Sodium 40 mg 06/04/23 12:20 06/04/23 13:00 Pantoprazole 40 Mg Vial IV 06/04/23 12:21 40 mg STAT ONE Administration Pantoprazole Sodium Confirm 06/04/23 12:59 Pantoprazole 40 Mg Vial Administered 06/04/23 13:00 Dose 40 mg IV .STK-MED ONE Lab/Rad Data: Laboratory Result Diagrams 06/04/23 11:55 06/04/23 11:55 Laboratory Results 06/04/23 06/04/23 06/04/23 Range/Units 12:25 11:55 11:55 WBC 11.2 H (4.0-10.5) x10^3/uL RBC 4.33 (4.1-5.6) x10^6/uL Hgb 12.1 L (12.5-18.0) g/dL Hct 38.1 L (42-50) % MCV 88.0 (78-100) fL MCH 27.9 (26-32) pg MCHC 31.8 L (32-36) g/dL RDW 16.1 H (11.5-14.0) % Plt Count 516 H (150-450) x10^3/uL MPV 9.8 (7.5-11.0) fL Gran % 65.7 (36.0-66.0) % Immature Gran % (Auto) 0.4 (0.00-0.4) % Nucleat RBC Rel Count 0.0 (0.00-0.1) % Eos # (Auto) 0.51 H (0-0.5) x10^3/uL Immature Gran # (Auto) 0.04 H (0.00-0.03) x10^3u/L Absolute Lymphs (auto) 2.05 (1.0-4.6) x10^3/uL Absolute Monos (auto) 1.20 (0.0-1.3) x10^3/uL Absolute Nucleated RBC 0.00 (0.00-0.01) x10^3u/L Lymphocytes % 18.3 L (24.0-44.0) % Monocytes % 10.7 (0.0-12.0) % Eosinophils % 4.5 (0.00-5.0) % Basophils % 0.4 (0.0-0.4) % Absolute Granulocytes 7.39 H (1.4-6.9) x10^3/uL Basophils # 0.04 (0-0.4) x10^3/uL Sodium 136 L (137-145) mmol/L Potassium 4.5 (3.5-5.1) mmol/L Chloride 92 L (98-107) mmol/L Carbon Dioxide 26 (22-30) mmol/L Anion Gap 22.1 H (5-15) MEQ/L BUN 44 H (9-20) mg/dL Creatinine 7.90 H (0.66-1.25) mg/dL Estimated GFR 7.1 ML/MIN Glucose 130 H (74-106) mg/dL Lactic Acid 1.5 (0.4-2.0) Calcium 9.5 (8.4-10.2) mg/dL Total Bilirubin 0.60 (0.2-1.3) mg/dL AST 27 (17-59) U/L ALT 31 (0-50) U/L Alkaline Phosphatase 58 (38-126) U/L Serum Total Protein 7.3 (6.3-8.2) g/dL Albumin 4.1 (3.5-5.0) g/dL Amylase 108 (30-110) U/L Lipase 166 (23-300) U/L - Progress Progress: unchanged Progress Note: 06/04/23 14:08 This patient's medical issue is 1 of moderate complexity. Level complexity and the workup performed is based on review of the patient's past medical history, review of the patient's medication list, review of the patient's drug allergy list, history of present illness and physical findings on examination. The workup includes placement of an intravenous line, infusion of normal saline solution, CBC, CMP, urinalysis and CT scan of the abdomen and pelvis. This patient workup was reviewed by me. The CAT scan was interpreted by the radiologist and I reviewed the impression. There is new focal mid sigmoid bowel wall thickening with intraluminal narrowing. Rule out colonic mass. I also spoke with the patient and his spouse. Patient does not make hardly any urine. Therefore, we will likely not receive the urine specimen. The patient and spouse do not want to be admitted or transferred to another facility. I think the patient is stable to be discharged to home with instructions to drink a clear liquid to a full liquid diet. He is also to follow-up with dialysis tomorrow, 06/05/2023. He is also to call his primary care provider today to make arrangements for follow-up appointment for further evaluation management including an upper and lower endoscopy. Counseled pt/family regarding: lab results, diagnosis, need for follow-up, rad results Medical Desision Making - Independent Historian Additional History obtained from: Spouse - Diagnostic Testing Diagnostic test were ordered, analyzed, and reviewed by me: Yes Radiological Interpretation: Reviewed by me, Teleradiologist Report - Risk of complications The pt has a mod risk of morbidity or mortality based on: Need for prescription drug management - Departure Departure Disposition: Home Clinical Impression: Vomiting and diarrhea, Abdominal pain, Chronic renal failure, Stricture of sig moid colon Condition: Stable Critical Care Time: No Referrals: ANGELIQUE JARVIS MD [Primary Care Provider] - Follow up/PCP as directed Additional Instructions: Clear liquid to full liquid diet. Use your antinausea medicine as needed. Continue your dialysis as scheduled. Call your primary care doctor's office today to make arrangements for follow-up appointment for further evaluation and management of the sigmoid colon narrowing including referral to undergo colonoscopy as indicated. Prescriptions: Ondansetron ODT 4 MG [Zofran Odt 4 mg] 4 mg PO Q6H PRN PRN #10 tablet PRN Reason: Vomiting
[2023-06-04 11:52] VITALS: TEMP 97
[2023-06-04] MEDS ORDERED: PROTONIX 40 MG IV IV ONE ×2 (12:20→12:59)
[2023-06-04] MEDS ORDERED: Zofran 4 MG/2 ML VIAL IV ONE (12:20)
[2023-06-04 12:26] LABS: Absolute Neutrophil Ct (ANC) 7.39 x10^3/uL (1.4-6.9); BASOPHIL % 0.4 % (0.0-0.4); Basophil (Absolute #) 0.04 x10^3/uL (0-0.4); Eosinophil % 4.5 % (0.00-5.0); Eosinophil (Absolute #) 0.51 x10^3/uL (0-0.5); Hematocrit 38.1 % (42-50); Hemoglobin 12.1 g/dL (12.5-18.0); IMMATURE GRAN # 0.04 x10^3u/L (0.00-0.03); IMMATURE GRAN % 0.4 % (0.00-0.4); Lymphocyte (Absolute #) 2.05 x10^3/uL (1.0-4.6); Lymphocytes % 18.3 % (24.0-44.0); Mean Corpuscular Hemoglobin 27.9 pg (26-32); Mean Corpuscular Hgb Concent. 31.8 g/dL (32-36); Mean Platelet Volume 9.8 fL (7.5-11.0); Monocytes % 10.7 % (0.0-12.0); Neutrophil % 65.7 % (36.0-66.0); Platelet Count 516 x10^3/uL (150-450); Red Blood Count 4.33 x10^6/uL (4.1-5.6); Red Cell Distribution Width 16.1 % (11.5-14.0); White Blood Count 11.2 x10^3/uL (4.0-10.5)
[2023-06-04] MEDS ORDERED: Sodium Chloride 0.9% 1000 ML 1,000 ML IV SCH (12:30)
[2023-06-04 12:34] LABS: ALBUMIN 4.1 g/dL (3.5-5.0); ANION GAP 22.1 MEQ/L (5-15); BILIRUBIN,TOTAL 0.6 mg/dL (0.2-1.3); Calcium 9.5 mg/dL (8.4-10.2); Creatinine 1 7.9 mg/dL (0.66-1.25); EST GLOMERULAR FILTRATION RATE 7.1 ML/MIN; Potassium 4.5 mmol/L (3.5-5.1); Total Protein 7.3 g/dL (6.3-8.2)
[2023-06-04] MEDS ORDERED: Zofran 4 MG/2 ML VIAL ONE (12:58)
[2023-06-04] MEDS ORDERED: Sodium Chloride 0.9% 1000 ML 1,000 ML ONE (12:59)
--- NOTE | 2023-06-04 13:19 | XRAY ---
Indication: Abdomen pain, vomiting, and diarrhea 2 days. Multiple contiguous axial images obtained through the abdomen and pelvis without contrast. Comparison: August 17, 2019 Lung bases demonstrates new incompletely visualized small focus subsegmental atelectasis/scarring. Remaining lungs clear with pulmonary emphysema. Heart is not enlarged again with coronary calcifications. Stable small hiatal hernia. Noncontrasted stomach and bowel loops nonobstructed with normal appendix. Again scattered descending and sigmoid diverticulosis. Mid sigmoid demonstrates new focal bowel wall thickening up to 2 cm with intraluminal narrowing. Colonic mass is of primary concern. No free fluid/air. Pelvis again demonstrates ventral hernia repair. Stable atrophic left kidney, bilateral renal cysts, splenic calcified granulomas, and cholecystectomy. Remaining liver, pancreas, spleen, adrenal glands, kidneys, ureters, and bladder are unremarkable for noncontrast exam. Progressive worsening moderate scattered aortoiliac calcifications without AAA. Osseous structures intact again with osteopenia and mild/moderate degenerative changes throughout spine. Enlarging small bilateral fatty inguinal hernias. Impression: 1. New focal mid sigmoid bowel wall thickening with intraluminal narrowing. Rule out colonic mass. Colonoscopy may yield further information. 2. Chronic findings including pulmonary emphysema, hiatal hernia, colonic diverticulosis, left renal atrophy, bilateral renal cysts, fatty bilateral inguinal hernias, arteriosclerotic disease, chronic bony findings, and old granulomatous disease.
[2023-06-04 13:44] VITALS: O2SAT 97
[2023-06-04 14:46] VITALS: BP 174/81; PULSE 68; RESP 18
== END 2023-06-04 14:59 | disposition home or self-care (01) ==
LOC: ED 11:18
DX: R11.2 Nausea with vomiting, unspecified (principal); R19.7 Diarrhea, unspecified; R10.9 Unspecified abdominal pain; K56.699 Other intestinal obstruction unspecified as to partial versus complete obstruction; I12.0 Hypertensive chronic kidney disease with stage 5 chronic kidney disease or end stage renal disease; E11.22 Type 2 diabetes mellitus with diabetic chronic kidney disease; N18.6 End stage renal disease; R42 Dizziness and giddiness; R53.1 Weakness; E78.5 Hyperlipidemia, unspecified; Z79.02 Long term (current) use of antithrombotics/antiplatelets; Z79.01 Long term (current) use of anticoagulants; Z79.899 Other long term (current) drug therapy; Z99.2 Dependence on renal dialysis
CPT/HCPCS: 36415; 74176; 80053; 82150; 83605; 83690; 85025; 87040; 93005; 96360; 96361; 96374; 96375; 99284; J2405

== ENCOUNTER 2023-09-23 16:15 | Emergency (ER) | payer MEDICARE, BC ==
--- NOTE | 2023-09-23 16:17 | ERPHSYRPT ---
- History of Present Illness Time Seen by Provider: 09/23/23 16:17 Source: patient, family Exam Limitations: clinical condition Physician History: This is a 78-year-old white male patient of Dr. Jarvis who woke up at approximately 6:30 AM this morning and his speech was slightly slurred and he was more weak than typical for him per patient's spouse. Patient proceeded to his Thursday dialysis appointment at 7:30 AM and was dialyzed till 10:30 AM. Patient receives dialysis Thursday. After the patient was home postdialysis, he suddenly had 2-3 episodes of stool incontinence. He has not been having any abdominal pain, chest pain shortness of breath or cough symptoms. Patient has no known exposure to individuals with flu diagnoses or symptoms. Patient's stated that the patient has an appointment to see doctors at the [facility] in [place] tomorrow, 09/24/2023, and they prefer not to be admitted or transferred to any facility and was absolutely necessary. They want to make sure that they arrive at that appointment early in the morning. 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 King. Patient has a history of gastroesophageal reflux disease, hypertension, hyperlipidemia, dementia, atrial fibrillation and has a cardiac stent. Patient is on Plavix. Patient states he is feeling fine at this time. His neurologic symptoms resolved within a few hours and he is neurologically at baseline per his spouse's report. Timing/Duration: today Severity: mild Character of Deficits: other (Earlier today but those symptoms resolved) Baseline/Normal Cognition: alert oriented x 3 Current Cognition: alert oriented x 3 Baseline Gait: walks w/o assistance Associated Symptoms: weakness (Experiences at 6:30 AM this morning. Symptoms have resolved), slurred speech (At 6:30 AM. Symptoms have resolved.) Allergies/Adverse Reactions: No Known Drug Allergies Allergy (Verified 09/23/23 16:34) Home Medications: Atorvastatin Calcium 80 mg PO DAILY 08/01/19 [History] Carvedilol 12.5 mg [Coreg 12.5 mg] 12.5 mg PO BID 08/01/19 [History] Cholecalciferol (Vitamin D3) [Vitamin D3] 1,000 unit PO DAILY 08/01/19 [History] Clopidogrel Bisulfate [PLAVIX Tablet] 75 mg PO DAILY 08/01/19 [History] Fluoxetine HCl 20 mg [Prozac 20 MG] 20 mg PO DAILY 08/01/19 [History] Hydrocodone/Acetaminophen [[place] 7.5-325 Tablet] 1 each PO Q4HPRN PRN 08/01/19 [History] Ropinirole 2Mg [Requip 2Mg Tab] 2 mg PO HS 08/01/19 [History] buPROPion HCL [Bupropion HCl ER] 300 mg PO DAILY 08/01/19 [History] Albuterol Sulfate [Albuterol Sulfate Hfa] 2 puff IH BID 06/04/23 [History] Apixaban [Eliquis 2.5 mg Tablet] 1 tab PO BID 06/04/23 [History] Budesonide/Formoterol Fumarate [Budesonide-Formoterol 160-4.5] See Rx Instructions .ROUTE .COMPLEX 06/04/23 [History] Clonidine HCl 0.1 mg [Clonidine 0.1 mg Tablet] 0.1 mg PO TID 06/04/23 [History] Donepezil HCl 10 mg [Aricept 10 MG] 10 mg PO HS 06/04/23 [History] Ferric Citrate [Auryxia] 210 mg PO AC 06/04/23 [History] Gabapentin 300 mg PO DAILY 06/04/23 [History] Lisinopril 20 mg [Zestril 20 MG] 20 mg PO BID 06/04/23 [History] Omeprazole Magnesium [Prilosec Otc] 40 mg PO DAILY 06/04/23 [History] Pantoprazole 20 mg [Protonix 20MG Tablet] See Rx Instructions .ROUTE .COMPLEX 06/04/23 [History] Pyridoxine HCl 100 mg [Vitamin B-6 (Pyridoxine) 100 MG] 1 tab PO DAILY 06/04/23 [History] Hx Tetanus, Diphtheria Vaccination/Date Given: Yes Hx Influenza Vaccination/Date Given: Yes Hx Pneumococcal Vaccination/Date Given: Yes (Unsure) Travel Risk - International Travel Have you traveled outside of the country in past 3 weeks: No - Coronavirus Screening Are you exhibiting any of the following symptoms?: Yes Symptoms: Vomiting/Diarrhea (Diarrhea symptoms) Close contact with a COVID-19 positive Pt in past 14-21 Days: No - Vaccine Status Have you recieved a Covid-19 vaccination: Yes Pad Cutter: Unknown - Vaccination Dates Dates if Unknown: unknown - Review of Systems Constitutional: Weakness (Symptoms have resolved) Eyes: No Symptoms Ears, Nose, & Throat: No Symptoms Respiratory: No Symptoms Cardiac: No Symptoms Abdominal/Gastrointestinal: Diarrhea (Symptoms have resolved) Genitourinary Symptoms: No Symptoms Musculoskeletal: No Symptoms Skin: No Symptoms Neurological: Speech Changes Psychological: No Symptoms (Symptoms have resolved) Endocrine: No Symptoms Hematologic/Lymphatic: No Symptoms Immunological/Allergic: No Symptoms All Other Systems: Reviewed and Negative - Past Medical History Pertinent Past Medical History: Yes Neurological History: Dementia ENT History: Cataracts Cardiac History: Arrhythmia, High Cholesterol, Hypertension Respiratory History: Pneumonia, Tuberculosis Endocrine Medical History: Diabetes Type II Musculoskeletal History: Arthritis GI Medical History: GERD History: Renal Disease Psycho-Social History: No Pertinent History Male Reproductive Disorders: No Pertinent History Other Medical History: exposed to agent orange in [place], hemodialysis, AFIB - Past Surgical History Past Surgical History: Yes (heart stint, abd hernia repair) Neuro Surgical History: No Pertinent History Cardiac: Cardiac Catheterization Respiratory: No Pertinent History Gastrointestinal: No Pertinent History Genitourinary: No Pertinent History Musculoskeletal: No Pertinent History Male Surgical History: No Pertinent History Other Surgical History: lap choley - Social History Smoking Status: Former smoker How long have you smoked: 60 yrs Exposure to second hand smoke: Yes Drug Use: none Patient Lives Alone: No Significant Family History: no pertinent family hx - Nursing Vital Signs Nursing Vital Signs: Initial Vital Signs Blood Pressure 140/60 09/23/23 16:30 O2 Sat by Pulse Oximetry 95 09/23/23 16:30 Pain Scale Pain Intensity 5 - Cesar Coma Scale Best Eye Response ([place]): (4) open spontaneously Best Verbal Response (Cesar): (5) oriented Best Motor Response ([place]): (6) obeys commands [place] Total: 15 - Physical Exam General Appearance: no apparent distress, alert Eye Exam: bilateral eye: normal inspection, PERRL, EOMI Ears, Nose, Throat Exam: normal ENT inspection, moist mucous membranes Neck Exam: normal inspection, non-tender, supple, full range of motion Respiratory: normal breath sounds, lungs clear, airway intact, No chest tenderness, No respiratory distress Cardiovascular: regular rate/rhythm, normal heart sounds, normal peripheral pulses Gastrointestinal: soft, normal bowel sounds, No tenderness Rectal Exam: not done Back Exam: normal inspection, normal range of motion, No CVA tenderness Extremity Exam: normal inspection, normal range of motion, pelvis stable Mental Status: alert, oriented x 3, 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 Exam: normal hearing, normal speech, PERRL, tongue midline Coordination/Gait: normal finger to nose Motor/Sensory: no motor deficit, no sensory deficit, no pronator drift Skin Exam: normal color, warm, dry SpO2 Interpretation: normal O2 Delivery: Room Air - Course Nursing assessment & vital signs reviewed: Yes Ordered Tests: Active Orders 24 hr Category Date Time Status IV Insertion STAT Care 09/23/23 16:57 Active NPO (ED) STAT Care 09/23/23 16:55 Active Pulse Oximetry (ED) STAT Care 09/23/23 16:55 Active HEAD WITHOUT CONTRAST [CT] Stat Exams 09/23/23 16:55 Taken CBC W DIFF Stat Lab 09/23/23 16:35 Completed CMP Stat Lab 09/23/23 16:35 Completed CULTURE,URINE Stat Lab 09/23/23 17:43 Ordered PROTIME WITH INR Stat Lab 09/23/23 16:35 Completed UA W/RFX UR CULTURE Stat Lab 09/23/23 17:43 Completed Lab/Rad Data: Laboratory Result Diagrams 09/23/23 16:35 09/23/23 16:35 Laboratory Results 09/23/23 09/23/23 09/23/23 Range/Units 17:43 16:35 16:35 WBC (4.0-10.5) x10^3/uL RBC (4.1-5.6) x10^6/uL Hgb (12.5-18.0) g/dL Hct (42-50) % MCV (78-100) fL MCH (26-32) pg MCHC (32-36) g/dL RDW (11.5-14.0) % Plt Count (150-450) x10^3/uL MPV (7.5-11.0) fL Gran % (36.0-66.0) % Immature Gran % (Auto) (0.00-0.4) % Nucleat RBC Rel Count (0.00-0.1) % Eos # (Auto) (0-0.5) x10^3/uL Immature Gran # (Auto) (0.00-0.03) x10^3u/L Absolute Lymphs (auto) (1.0-4.6) x10^3/uL Absolute Monos (auto) (0.0-1.3) x10^3/uL Absolute Nucleated RBC (0.00-0.01) x10^3u/L Lymphocytes % (24.0-44.0) % Monocytes % (0.0-12.0) % Eosinophils % (0.00-5.0) % Basophils % (0.0-0.4) % Absolute Granulocytes (1.4-6.9) x10^3/uL Basophils # (0-0.4) x10^3/uL PT 11.9 (9.4-12.5) SECONDS INR 1.10 (0.8-3.0) Sodium 137 (137-145) mmol/L Potassium 4.3 (3.5-5.1) mmol/L Chloride 90 L (98-107) mmol/L Carbon Dioxide 31 H (22-30) mmol/L Anion Gap 20.6 H (5-15) MEQ/L BUN 38 H (9-20) mg/dL Creatinine 6.36 H (0.66-1.25) mg/dL Estimated GFR 8.5 ML/MIN Glucose 177 H (74-106) mg/dL Calcium 9.9 (8.4-10.2) mg/dL Total Bilirubin 0.90 (0.2-1.3) mg/dL AST 22 (17-59) U/L ALT 28 (0-50) U/L Alkaline Phosphatase 64 (38-126) U/L Serum Total Protein 8.5 H (6.3-8.2) g/dL Albumin 4.6 (3.5-5.0) g/dL Urine Color Yellow (Yellow) Urine Appearance Clear (Clear) Urine pH 8.0 (4.6-8.0) Ur Specific [place] 1.015 (1.005-1.030) Urine Protein 300 A (Negative) Urine Glucose (UA) 250 A (Negative) mg/dL Urine Ketones Negative (Negative) Urine Blood Negative (Negative) Urine Nitrite Negative (Negative) Urine Bilirubin Negative (Negative) Urine Urobilinogen 0.2 (0.2) mg/dL Ur Leukocyte Esterase Negative (Negative) U Hyaline Cast (Auto) NONE SEEN (0-2) /LPF Urine Microscopic RBC 0-2 (0-5) /HPF Urine Microscopic WBC 0-2 (0-5) /HPF Ur Epithelial Cells None Seen (None Seen) /HPF Urine Bacteria None Seen (None Seen) /HPF Urine Culture Reflexed NO (NO) 09/23/23 Range/Units 16:35 WBC 12.9 H (4.0-10.5) x10^3/uL RBC 3.72 L (4.1-5.6) x10^6/uL Hgb 11.8 L (12.5-18.0) g/dL Hct 36.4 L (42-50) % MCV 97.8 (78-100) fL MCH 31.7 (26-32) pg MCHC 32.4 (32-36) g/dL RDW 16.4 H (11.5-14.0) % Plt Count 361 (150-450) x10^3/uL MPV 9.5 (7.5-11.0) fL Gran % 81.4 H (36.0-66.0) % Immature Gran % (Auto) 0.4 (0.00-0.4) % Nucleat RBC Rel Count 0.0 (0.00-0.1) % Eos # (Auto) 0.28 (0-0.5) x10^3/uL Immature Gran # (Auto) 0.05 H (0.00-0.03) x10^3u/L Absolute Lymphs (auto) 1.20 (1.0-4.6) x10^3/uL Absolute Monos (auto) 0.84 (0.0-1.3) x10^3/uL Absolute Nucleated RBC 0.00 (0.00-0.01) x10^3u/L Lymphocytes % 9.3 L (24.0-44.0) % Monocytes % 6.5 (0.0-12.0) % Eosinophils % 2.2 (0.00-5.0) % Basophils % 0.2 (0.0-0.4) % Absolute Granulocytes 10.46 H (1.4-6.9) x10^3/uL Basophils # 0.03 (0-0.4) x10^3/uL PT (9.4-12.5) SECONDS INR (0.8-3.0) Sodium (137-145) mmol/L Potassium (3.5-5.1) mmol/L Chloride (98-107) mmol/L Carbon Dioxide (22-30) mmol/L Anion Gap (5-15) MEQ/L BUN (9-20) mg/dL Creatinine (0.66-1.25) mg/dL Estimated GFR ML/MIN Glucose (74-106) mg/dL Calcium (8.4-10.2) mg/dL Total Bilirubin (0.2-1.3) mg/dL AST (17-59) U/L ALT (0-50) U/L Alkaline Phosphatase (38-126) U/L Serum Total Protein (6.3-8.2) g/dL Albumin (3.5-5.0) g/dL Urine Color (Yellow) Urine Appearance (Clear) Urine pH (4.6-8.0) Ur Specific [place] (1.005-1.030) Urine Protein (Negative) Urine Glucose (UA) (Negative) mg/dL Urine Ketones (Negative) Urine Blood (Negative) Urine Nitrite (Negative) Urine Bilirubin (Negative) Urine Urobilinogen (0.2) mg/dL Ur Leukocyte Esterase (Negative) U Hyaline Cast (Auto) (0-2) /LPF Urine Microscopic RBC (0-5) /HPF Urine Microscopic WBC (0-5) /HPF Ur Epithelial Cells (None Seen) /HPF Urine Bacteria (None Seen) /HPF Urine Culture Reflexed (NO) - Progress Progress: improved, re-examined Progress Note: 09/23/23 16:54 This patient's medical issue is 1 of moderate complexity. The level complex in the workup performed based on review the patient's past medical history, review the patient's drug allergy list, review the patient's medication list, review of the patient's history of present illness and physical findings on examination. The workup in this patient includes placement of intravenous line, twelve-lead EKG, urinalysis, CBC, CMP, CT scan of the head without contrast. 09/23/23 19:03 I reviewed and interpreted the patient's laboratory data results. Patient has a mild leukocytosis. There is no evidence of any acute, emergent medical issue. CAT scan of the head without contrast was interpreted by the radiologist. I reviewed the impression. There is atrophy, degenerative micro ischemia present there is old right occipital lobe infarct. No new/acute findings 09/23/23 19:04 We did obtain a stool specimen. We will send that off for evaluation. The stool is formed. Counseled pt/family regarding: lab results, diagnosis, need for follow-up, rad results Medical Desision Making - Independent Historian Additional History obtained from: Spouse - Diagnostic Testing Diagnostic test were ordered, analyzed, and reviewed by me: Yes Radiological Interpretation: Reviewed by me, Teleradiologist Report - Risk of complications Low Risk: Low risk of morbidity from additional dx testing or treatment - Departure Departure Disposition: Home Clinical Impression: TIA (transient ischemic attack), Stool incontinence Condition: Stable Critical Care Time: No Referrals: ANGELIQUE JARVIS MD [Primary Care Provider] - Follow up/PCP as directed Additional Instructions: Drink plenty fluids take your medication as prescribed. Follow-up with your primary care provider, tomorrow, 09/24/2023 to obtain the stool specimen results and to make arrangements for further evaluation with a follow-up appointment the next 3 to 5 days. Keep your outpatient appointment you have scheduled tomorrow.
[2023-09-23 16:33] VITALS: TEMP 97.2
[2023-09-23 17:00] LABS: Absolute Neutrophil Ct (ANC) 10.46 x10^3/uL (1.4-6.9); BASOPHIL % 0.2 % (0.0-0.4); Basophil (Absolute #) 0.03 x10^3/uL (0-0.4); Eosinophil % 2.2 % (0.00-5.0); Eosinophil (Absolute #) 0.28 x10^3/uL (0-0.5); Hematocrit 36.4 % (42-50); Hemoglobin 11.8 g/dL (12.5-18.0); IMMATURE GRAN # 0.05 x10^3u/L (0.00-0.03); IMMATURE GRAN % 0.4 % (0.00-0.4); Lymphocytes % 9.3 % (24.0-44.0); Mean Cell Volume 97.8 fL (78-100); Mean Corpuscular Hemoglobin 31.7 pg (26-32); Mean Corpuscular Hgb Concent. 32.4 g/dL (32-36); Mean Platelet Volume 9.5 fL (7.5-11.0); Monocyte (Absolute #) 0.84 x10^3/uL (0.0-1.3); Monocytes % 6.5 % (0.0-12.0); Neutrophil % 81.4 % (36.0-66.0); Platelet Count 361 x10^3/uL (150-450); Red Blood Count 3.72 x10^6/uL (4.1-5.6); Red Cell Distribution Width 16.4 % (11.5-14.0); White Blood Count 12.9 x10^3/uL (4.0-10.5)
[2023-09-23 17:06] LABS: INR 1.1 (0.8-3.0); PROTIME 11.9 SECONDS (9.4-12.5)
[2023-09-23 17:07] LABS: ALBUMIN 4.6 g/dL (3.5-5.0); ANION GAP 20.6 MEQ/L (5-15); BILIRUBIN,TOTAL 0.9 mg/dL (0.2-1.3); Calcium 9.9 mg/dL (8.4-10.2); Creatinine 1 6.36 mg/dL (0.66-1.25); EST GLOMERULAR FILTRATION RATE 8.5 ML/MIN; Potassium 4.3 mmol/L (3.5-5.1); Total Protein 8.5 g/dL (6.3-8.2)
[2023-09-23 18:01] VITALS: RESP 16
[2023-09-23 18:15] LABS: Appearance Clear (Clear); Bilirubin Negative (Negative); Blood Negative (Negative); Glucose, Urine 250 mg/dL (Negative); Ketones Negative (Negative); Leukocyte Esterase Negative (Negative); Nitrite Negative (Negative); Protein,Urine Dip 300 (Negative); Specific Gravity 1.015 (1.005-1.030); Urobilinogen 0.2 mg/dL (0.2)
[2023-09-23 18:19] LABS: Bacteria None Seen /HPF (None Seen); Epithelial Cells None Seen /HPF (None Seen); Hyaline Casts NONE SEEN /LPF (0-2); RBC 0-2 /HPF (0-5); WBC 0-2 /HPF (0-5)
[2023-09-23 18:21] LABS: ADD URINE CULTURE? NO (NO)
[2023-09-23 19:36] VITALS: BP 158/65; PULSE 80; O2SAT 94
--- NOTE | 2023-09-24 08:40 | XRAY ---
Indication: Slurred speech and weakness. Multiple contiguous axial images obtained through the head without contrast. Comparison: August 17, 2019 Progressive age-appropriate global atrophy and moderate periventricular degenerative micro-ischemia bilaterally. Stable small focus old infarct right occipital lobe. No acute intracranial hemorrhage, abnormal extra-axial fluid collection, or mass effect. Fourth ventricle is midline without hydrocephalus. Bony calvarium intact. Visualized paranasal sinuses and mastoid air cells are clear. Impression: Continued nonacute senile brain with degenerative micro-ischemia and old right occipital lobe infarct.
== END 2023-09-23 19:41 | disposition home or self-care (01) ==
LOC: ED 16:15
DX: G45.9 Transient cerebral ischemic attack, unspecified (principal); R15.9 Full incontinence of feces; I12.0 Hypertensive chronic kidney disease with stage 5 chronic kidney disease or end stage renal disease; N18.6 End stage renal disease; E11.22 Type 2 diabetes mellitus with diabetic chronic kidney disease; E78.5 Hyperlipidemia, unspecified; Z79.02 Long term (current) use of antithrombotics/antiplatelets; Z79.01 Long term (current) use of anticoagulants; Z79.899 Other long term (current) drug therapy
CPT/HCPCS: 36000; 36415; 70450; 80053; 81001; 85025; 85610; 87086; 94760; 99284; P9612

== ENCOUNTER 2023-10-16 21:14 | Emergency (ER) | payer MEDICARE, BC ==
--- NOTE | 2023-10-16 21:16 | ERPHSYRPT ---
- History of Present Illness Time Seen by Provider: 10/16/23 21:16 Source: patient, EMS, old records Exam Limitations: clinical condition Physician History: This is a 78-year-old white male patient of Dr. Jarvis who presents to the emergency department by the ambulance/entry writer service. Approximately 3 to 4 hours prior to patient arrival, family and friends noted that the patient was becoming a little bit confused. Paramedics arrived and the blood sugar obtained was 280. In the past, when he had some lethargy and confusion, it typically met the the patient had a urinary tract infection. Patient has chronic renal failure and is on dialysis Thursday. Because of the holidays, they moved Fridays (today's) dialysis session to tomorrow, 10/17/2023. Patient has a left forearm AV fistula in place. Patient's grease monkey is Dr. King. Patient has a history of gastroesophageal reflux disease, hypertension, hyperlipidemia, dementia, atrial fibrillation, cardiac stent (Plavix and Eliquis) and atrial fibrillation. He does have a history of aortic stenosis in the past. Patient arrives mildly lethargic but rousable and mildly confused but nothing focal on the neurologic exam. Timing/Duration: today Severity: moderate Deficits: decrease ability to stand, decrease ability to walk, weak Baseline/Normal Cognition: alert oriented x 3 Current Cognition: alert but confused Baseline Gait: walks only w/assistance Associated Symptoms: confusion Allergies/Adverse Reactions: No Known Drug Allergies Allergy (Verified 10/16/23 21:15) Home Medications: Atorvastatin Calcium 80 mg PO DAILY 08/01/19 [History] Carvedilol 12.5 mg [Coreg 12.5 mg] 12.5 mg PO BID 08/01/19 [History] Cholecalciferol (Vitamin D3) [Vitamin D3] 1,000 unit PO DAILY 08/01/19 [History] Clopidogrel Bisulfate [PLAVIX Tablet] 75 mg PO DAILY 08/01/19 [History] Fluoxetine HCl 20 mg [Prozac 20 MG] 20 mg PO DAILY 08/01/19 [History] Hydrocodone/Acetaminophen [[place] 7.5-325 Tablet] 1 each PO Q4HPRN PRN 08/01/19 [History] Ropinirole 2Mg [Requip 2Mg Tab] 2 mg PO HS 08/01/19 [History] buPROPion HCL [Bupropion HCl ER] 300 mg PO DAILY 08/01/19 [History] Albuterol Sulfate [Albuterol Sulfate Hfa] 2 puff IH BID 06/04/23 [History] Apixaban [Eliquis 2.5 mg Tablet] 1 tab PO BID 06/04/23 [History] Budesonide/Formoterol Fumarate [Budesonide-Formoterol 160-4.5] See Rx Instructions .ROUTE .COMPLEX 06/04/23 [History] Clonidine HCl 0.1 mg [Clonidine 0.1 mg Tablet] 0.1 mg PO TID 06/04/23 [History] Donepezil HCl 10 mg [Aricept 10 MG] 10 mg PO HS 06/04/23 [History] Ferric Citrate [Auryxia] 210 mg PO AC 06/04/23 [History] Gabapentin 300 mg PO DAILY 06/04/23 [History] Lisinopril 20 mg [Zestril 20 MG] 20 mg PO BID 06/04/23 [History] Omeprazole Magnesium [Prilosec Otc] 40 mg PO DAILY 06/04/23 [History] Pantoprazole 20 mg [Protonix 20MG Tablet] See Rx Instructions .ROUTE .COMPLEX 06/04/23 [History] Pyridoxine HCl 100 mg [Vitamin B-6 (Pyridoxine) 100 MG] 1 tab PO DAILY 06/04/23 [History] Hx Tetanus, Diphtheria Vaccination/Date Given: Yes Hx Influenza Vaccination/Date Given: Yes Hx Pneumococcal Vaccination/Date Given: Yes (Unsure) Travel Risk - International Travel Have you traveled outside of the country in past 3 weeks: No - Coronavirus Screening Are you exhibiting any of the following symptoms?: No Close contact with a COVID-19 positive Pt in past 14-21 Days: No - Vaccine Status Have you recieved a Covid-19 vaccination: Yes 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 - Vaccination Dates Dates if Unknown: unknown - Review of Systems Constitutional: Fever, Weakness Eyes: No Symptoms Ears, Nose, & Throat: No Symptoms Respiratory: No Symptoms Cardiac: No Symptoms Abdominal/Gastrointestinal: No Symptoms Genitourinary Symptoms: No Symptoms Musculoskeletal: No Symptoms Skin: No Symptoms Neurological: Lethargy, Other (Confused) Endocrine: No Symptoms Hematologic/Lymphatic: No Symptoms Immunological/Allergic: No Symptoms All Other Systems: Reviewed and Negative - Past Medical History Pertinent Past Medical History: Yes Neurological History: Dementia ENT History: Cataracts Cardiac History: Arrhythmia, High Cholesterol, Hypertension Respiratory History: Pneumonia, Tuberculosis Endocrine Medical History: Diabetes Type II Musculoskeletal History: Arthritis GI Medical History: GERD History: Renal Disease Psycho-Social History: No Pertinent History Male Reproductive Disorders: No Pertinent History Other Medical History: exposed to agent orange in [place], hemodialysis, AFIB - Past Surgical History Past Surgical History: Yes (heart stint, abd hernia repair) Neuro Surgical History: No Pertinent History Cardiac: Cardiac Catheterization Respiratory: No Pertinent History Gastrointestinal: No Pertinent History Genitourinary: No Pertinent History Musculoskeletal: No Pertinent History Male Surgical History: No Pertinent History Other Surgical History: lap choley - Social History Smoking Status: Former smoker How long have you smoked: 60 yrs Exposure to second hand smoke: Yes Drug Use: none Patient Lives Alone: No Significant Family History: no pertinent family hx - Nursing Vital Signs Nursing Vital Signs: Initial Vital Signs Temperature 100.8 F 10/16/23 21:16 Pulse Rate 97 H 10/16/23 21:16 Respiratory Rate 21 10/16/23 21:16 Blood Pressure 135/59 10/16/23 21:16 O2 Sat by Pulse Oximetry 88 L 10/16/23 21:16 Pain Scale Pain Intensity 0 - Jud Coma Scale Best Eye Response (Jud): (3) open to voice Best Verbal Response (Cesar): (4) confused conversation Best Motor Response (Cesar): (6) obeys commands Cesar Total: 13 - Physical Exam General Appearance: no apparent distress, lethargy Eye Exam: bilateral eye: normal inspection, PERRL, EOMI Ears, Nose, Throat Exam: normal ENT inspection, dry mucous membranes Neck Exam: normal inspection, non-tender, supple, full range of motion Respiratory: normal breath sounds, lungs clear, airway intact, No chest tenderness, No respiratory distress Cardiovascular: regular rate/rhythm, normal heart sounds, normal peripheral pulses Gastrointestinal: soft, normal bowel sounds, No tenderness Rectal Exam: not done Back Exam: normal inspection, normal range of motion, No CVA tenderness, No vertebral tenderness Extremity Exam: normal inspection, normal range of motion, pelvis stable, other (Forearm AV fistula) Mental Status: lethargy (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 Exam: normal hearing, normal speech, PERRL Motor/Sensory: no motor deficit, no sensory deficit Skin Exam: normal color, warm, dry SpO2 Interpretation: hypoxic O2 Delivery: Room Air - Course Nursing assessment & vital signs reviewed: Yes Ordered Tests: Active Orders 24 hr Category Date Time Status Environmental Sustainability Manager STAT Care 10/16/23 21:58 Active Cath for Residual-In & Out (Straight) STAT Care 10/16/23 21:58 Active EKG-ER Only STAT Care 10/16/23 21:58 Active IV Insertion STAT Care 10/16/23 21:50 Active IV Insertion-2nd Peripheral STAT Care 10/16/23 21:50 Active Pulse Oximetry (ED) STAT Care 10/16/23 21:58 Active cath [Cath for Specimen-Straight] STAT Care 10/16/23 21:50 Active HEAD WITHOUT CONTRAST [CT] Stat Exams 10/16/23 21:58 Completed BLOOD CULTURE Stat Lab 10/16/23 21:45 Received CBC W DIFF Stat Lab 10/16/23 21:35 Completed CMP Stat Lab 10/16/23 21:35 Completed CULTURE,URINE Stat Lab 10/16/23 21:51 Received MONO SCREEN Stat Lab 10/16/23 22:00 Completed UA W/RFX UR CULTURE Stat Lab 10/16/23 21:51 Completed Medication Summary Generic Name Dose Route Start Last Admin Trade Name Freq PRN Reason Stop Dose Admin Sodium Chloride 1,000 mls @ 100 mls/hr 10/16/23 22:00 10/16/23 22:39 Sodium Chloride 0.9% 1000 Ml IV 11/15/23 21:59 100 mls/hr .Q10H FLAVIO Administration Discontinued Medications Generic Name Dose Route Start Last Admin Trade Name Freq PRN Reason Stop Dose Admin Acetaminophen 650 mg 10/16/23 23:59 Acetaminophen 325 Mg Tablet PO 10/17/23 00:00 STAT STA Ceftriaxone Sodium/Dextrose 1 g in 50 mls @ 100 mls/hr 10/16/23 23:22 10/17/23 00:17 Rocephin 1 Gm-D5w 50 Ml Bag IV 10/16/23 23:51 Infused STAT STA Infusion Ceftriaxone Sodium/Dextrose Confirm 10/16/23 23:27 Rocephin 1 Gm-D5w 50 Ml Bag Administered 10/16/23 23:28 Dose 1 g in 50 mls @ ud IV .STK-MED ONE Lab/Rad Data: Laboratory Result Diagrams 10/16/23 21:35 10/16/23 21:35 Laboratory Results 10/16/23 10/16/23 10/16/23 Range/Units 22:05 22:00 21:51 WBC (4.0-10.5) x10^3/uL RBC (4.1-5.6) x10^6/uL Hgb (12.5-18.0) g/dL Hct (42-50) % MCV (78-100) fL MCH (26-32) pg MCHC (32-36) g/dL RDW (11.5-14.0) % Plt Count (150-450) x10^3/uL MPV (7.5-11.0) fL Gran % (36.0-66.0) % Immature Gran % (Auto) (0.00-0.4) % Nucleat RBC Rel Count (0.00-0.1) % Eos # (Auto) (0-0.5) x10^3/uL Immature Gran # (Auto) (0.00-0.03) x10^3u/L Absolute Lymphs (auto) (1.0-4.6) x10^3/uL Absolute Monos (auto) (0.0-1.3) x10^3/uL Absolute Nucleated RBC (0.00-0.01) x10^3u/L Lymphocytes % (24.0-44.0) % Monocytes % (0.0-12.0) % Eosinophils % (0.00-5.0) % Basophils % (0.0-0.4) % Absolute Granulocytes (1.4-6.9) x10^3/uL Basophils # (0-0.4) x10^3/uL Sodium (137-145) mmol/L Potassium (3.5-5.1) mmol/L Chloride (98-107) mmol/L Carbon Dioxide (22-30) mmol/L Anion Gap (5-15) MEQ/L BUN (9-20) mg/dL Creatinine (0.66-1.25) mg/dL Estimated GFR ML/MIN Glucose (74-106) mg/dL Calcium (8.4-10.2) mg/dL Total Bilirubin (0.2-1.3) mg/dL AST (17-59) U/L ALT (0-50) U/L Alkaline Phosphatase (38-126) U/L Ammonia (9-30) umol/L Serum Total Protein (6.3-8.2) g/dL Albumin (3.5-5.0) g/dL Urine Color Yellow (Yellow) Urine Appearance Clear (Clear) Urine pH 8.5 A (4.6-8.0) Ur Specific [place] 1.015 (1.005-1.030) Urine Protein 300 A (Negative) Urine Glucose (UA) 500 A (Negative) mg/dL Urine Ketones Negative (Negative) Urine Blood Small A (Negative) Urine Nitrite Negative (Negative) Urine Bilirubin Negative (Negative) Urine Urobilinogen 0.2 (0.2) mg/dL Ur Leukocyte Esterase Moderate A (Negative) U Hyaline Cast (Auto) NONE SEEN (0-2) /LPF Urine Microscopic RBC 3-5 (0-5) /HPF Urine Microscopic WBC 51-100 A (0-5) /HPF Ur Epithelial Cells None Seen (None Seen) /HPF Urine Bacteria None Seen (None Seen) /HPF Urine Culture Reflexed ORDERED SEPARATELY (NO) Monoscreen NEGATIVE (NEGATIVE) Influenza Type A Ag NEGATIVE (NEGATIVE) Influenza Type B Ag NEGATIVE (NEGATIVE) RSV (PCR) NEGATIVE (NEGATIVE) SARS-CoV-2 (PCR) POSITIVE A (NEGATIVE) 10/16/23 10/16/23 10/16/23 Range/Units 21:35 21:35 21:35 WBC 8.0 (4.0-10.5) x10^3/uL RBC 3.27 L (4.1-5.6) x10^6/uL Hgb 10.3 L (12.5-18.0) g/dL Hct 32.5 L (42-50) % MCV 99.4 (78-100) fL MCH 31.5 (26-32) pg MCHC 31.7 L (32-36) g/dL RDW 15.1 H (11.5-14.0) % Plt Count 363 (150-450) x10^3/uL MPV 9.7 (7.5-11.0) fL Gran % 79.3 H (36.0-66.0) % Immature Gran % (Auto) 0.4 (0.00-0.4) % Nucleat RBC Rel Count 0.0 (0.00-0.1) % Eos # (Auto) 0.11 (0-0.5) x10^3/uL Immature Gran # (Auto) 0.03 (0.00-0.03) x10^3u/L Absolute Lymphs (auto) 1.05 (1.0-4.6) x10^3/uL Absolute Monos (auto) 0.45 (0.0-1.3) x10^3/uL Absolute Nucleated RBC 0.00 (0.00-0.01) x10^3u/L Lymphocytes % 13.1 L (24.0-44.0) % Monocytes % 5.6 (0.0-12.0) % Eosinophils % 1.4 (0.00-5.0) % Basophils % 0.2 (0.0-0.4) % Absolute Granulocytes 6.36 (1.4-6.9) x10^3/uL Basophils # 0.02 (0-0.4) x10^3/uL Sodium 136 L (137-145) mmol/L Potassium 4.6 (3.5-5.1) mmol/L Chloride 96 L (98-107) mmol/L Carbon Dioxide 24 (22-30) mmol/L Anion Gap 21.2 H (5-15) MEQ/L BUN 84 H (9-20) mg/dL Creatinine 10.89 H (0.66-1.25) mg/dL Estimated GFR 4.4 ML/MIN Glucose 260 H (74-106) mg/dL Calcium 9.4 (8.4-10.2) mg/dL Total Bilirubin 0.60 (0.2-1.3) mg/dL AST 16 L (17-59) U/L ALT 19 (0-50) U/L Alkaline Phosphatase 56 (38-126) U/L Ammonia < 9 L (9-30) umol/L Serum Total Protein 7.1 (6.3-8.2) g/dL Albumin 3.9 (3.5-5.0) g/dL Urine Color (Yellow) Urine Appearance (Clear) Urine pH (4.6-8.0) Ur Specific [place] (1.005-1.030) Urine Protein (Negative) Urine Glucose (UA) (Negative) mg/dL Urine Ketones (Negative) Urine Blood (Negative) Urine Nitrite (Negative) Urine Bilirubin (Negative) Urine Urobilinogen (0.2) mg/dL Ur Leukocyte Esterase (Negative) U Hyaline Cast (Auto) (0-2) /LPF Urine Microscopic RBC (0-5) /HPF Urine Microscopic WBC (0-5) /HPF Ur Epithelial Cells (None Seen) /HPF Urine Bacteria (None Seen) /HPF Urine Culture Reflexed (NO) Monoscreen (NEGATIVE) Influenza Type A Ag (NEGATIVE) Influenza Type B Ag (NEGATIVE) RSV (PCR) (NEGATIVE) SARS-CoV-2 (PCR) (NEGATIVE) - Progress Progress: improved Progress Note: 10/16/23 23:41 This patient's medical issue is 1 of moderate to high complexity. Level of complexity in the workup performed is based on review of the patient's past medical history, review of the patient's medication list, review of patient drug allergy list, history present illness and physical findings on examination. Workup includes placement of intravenous line, infusion of normal saline solution, blood cultures, urinalysis, CBC, CMP, viral swabs, mono test and CT scan of the head. 10/17/23 00:51 I reviewed and interpreted this patient's laboratory results. Patient has a urinary tract infection as well as a COVID-19 infection. His anion gap is 21. His BUN/creatinine is 84 over approximately 10.9 with a GFR 4. CT scan of the head without contrast was interpreted by the radiologist and I reviewed the impression. Impression says no acute intracranial abnormality. Chronic microvascular ischemic changes and cerebral atrophy. I spoke with Dr. Bhatia who is the emergency room physician on-call at [facility] at this time. I reviewed the patient history, presenting complaint, laboratory workup results including laboratory studies and radiographic studies. He accepts the patient in transfer. Counseled pt/family regarding: lab results, diagnosis, rad results Medical Desision Making - Independent Historian Additional History obtained from: Family - Diagnostic Testing Diagnostic test were ordered, analyzed, and reviewed by me: Yes Radiological Interpretation: Reviewed by me, Teleradiologist Report - Risk of complications The pt has a high risk of morbidity or mortality based on: Decision regarding hospitilization or escalation of hosp level of care - Departure Departure Disposition: Transfer Clinical Impression: Lethargy, UTI (urinary tract infection), COVID-19 virus infection, Chronic kidney disease with end stage 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
[2023-10-16] MEDS ORDERED: Sodium Chloride 0.9% 1000 ML 1,000 ML IV SCH (22:00)
[2023-10-16 22:07] LABS: Absolute Neutrophil Ct (ANC) 6.36 x10^3/uL (1.4-6.9); BASOPHIL % 0.2 % (0.0-0.4); Basophil (Absolute #) 0.02 x10^3/uL (0-0.4); Eosinophil % 1.4 % (0.00-5.0); Eosinophil (Absolute #) 0.11 x10^3/uL (0-0.5); Hematocrit 32.5 % (42-50); Hemoglobin 10.3 g/dL (12.5-18.0); IMMATURE GRAN # 0.03 x10^3u/L (0.00-0.03); IMMATURE GRAN % 0.4 % (0.00-0.4); Lymphocyte (Absolute #) 1.05 x10^3/uL (1.0-4.6); Lymphocytes % 13.1 % (24.0-44.0); Mean Cell Volume 99.4 fL (78-100); Mean Corpuscular Hemoglobin 31.5 pg (26-32); Mean Corpuscular Hgb Concent. 31.7 g/dL (32-36); Mean Platelet Volume 9.7 fL (7.5-11.0); Monocyte (Absolute #) 0.45 x10^3/uL (0.0-1.3); Monocytes % 5.6 % (0.0-12.0); Neutrophil % 79.3 % (36.0-66.0); Platelet Count 363 x10^3/uL (150-450); Red Blood Count 3.27 x10^6/uL (4.1-5.6); Red Cell Distribution Width 15.1 % (11.5-14.0)
[2023-10-16 22:19] LABS: ADD URINE CULTURE? ORDERED SEPARATELY (NO); Appearance Clear (Clear); Bacteria None Seen /HPF (None Seen); Bilirubin Negative (Negative); Blood Small (Negative); Epithelial Cells None Seen /HPF (None Seen); Glucose, Urine 500 mg/dL (Negative); Hyaline Casts NONE SEEN /LPF (0-2); Ketones Negative (Negative); Leukocyte Esterase Moderate (Negative); Nitrite Negative (Negative); Ph 8.5 (4.6-8.0); Protein,Urine Dip 300 (Negative); Specific Gravity 1.015 (1.005-1.030); Urobilinogen 0.2 mg/dL (0.2); WBC 51-100 /HPF (0-5)
[2023-10-16 22:20] LABS: ALBUMIN 3.9 g/dL (3.5-5.0); ANION GAP 21.2 MEQ/L (5-15); BILIRUBIN,TOTAL 0.6 mg/dL (0.2-1.3); Calcium 9.4 mg/dL (8.4-10.2); Creatinine 1 10.89 mg/dL (0.66-1.25); EST GLOMERULAR FILTRATION RATE 4.4 ML/MIN; Potassium 4.6 mmol/L (3.5-5.1); Total Protein 7.1 g/dL (6.3-8.2)
[2023-10-16] MEDS ORDERED: Sodium Chloride 0.9% 1000 ML 1,000 ML ONE (22:35)
[2023-10-16 22:54] LABS: INFLUENZA A NEGATIVE (NEGATIVE); INFLUENZA B NEGATIVE (NEGATIVE); RESPIRATORY SYNCTIAL VIRUS NEGATIVE (NEGATIVE)
[2023-10-16 22:59] LABS: SARS-CoV-2 Xpert Express POSITIVE (NEGATIVE)
--- NOTE | 2023-10-16 23:19 | XRAY ---
CLINICAL HISTORY:Confusion; lethargy COMPARISON:NONE TECHNIQUE:Multiple axial images are obtained from the skull base to the vertex without contrast. CT scan was performed according to ALARA (as low as reasonable achievable). FINDINGS: There is cerebral atrophy. No evidence of space occupying lesion, hemorrhage, edema, mass effect, midline shift, extra axial collection, or hydrocephalus is noted. Basal cisterns are symmetric and normal in size and configuration. There are scattered periventricular hypodensities as can be seen with chronic microvascular ischemic changes. The horta-white matter differentiation is preserved. Visualized paranasal sinuses and mastoid air cells are well aerated. Orbital contents are within normal limits. Bony structures are intact. IMPRESSION: 1. No evidence of acute intracranial abnormality is demonstrated. 2. Chronic microvascular ischemic changes. 3. Cerebral atrophy. Electronically Signed by: Dr. Mahin Grace MD. (10/16/2023 23:15:04 EST)
[2023-10-16] MEDS ORDERED: ROCEPHIN 1 Gm-D5w 50 ml Bag** 1 G/50 ML IVPB IV STA (23:22)
[2023-10-16] MEDS ORDERED: ROCEPHIN 1 Gm-D5w 50 ml Bag** 1 G/50 ML IVPB IV ONE (23:27)
[2023-10-16] MEDS ORDERED: TYLENOL 325 MG PO STA (23:59)
[2023-10-17 01:48] VITALS: BP 159/67; PULSE 80; RESP 19; TEMP 98.3; O2SAT 99
== END 2023-10-17 01:55 | disposition short-term general hospital (02) ==
LOC: ED 21:14
DX: N39.0 Urinary tract infection, site not specified (principal); U07.1 COVID-19; R53.83 Other fatigue; R50.9 Fever, unspecified; I12.0 Hypertensive chronic kidney disease with stage 5 chronic kidney disease or end stage renal disease; N18.6 End stage renal disease; R41.0 Disorientation, unspecified; E78.5 Hyperlipidemia, unspecified; Z79.02 Long term (current) use of antithrombotics/antiplatelets; Z79.01 Long term (current) use of anticoagulants; Z79.899 Other long term (current) drug therapy; Z20.828 Contact with and (suspected) exposure to other viral communicable diseases
CPT/HCPCS: 0241U; 36000; 36415; 51701; 70450; 80053; 81001; 82140; 85025; 86308; 87040; 87077; 87086; 87186; 93005; 93041; 94760; 96360; 96365; 99285; P9612; J0696